=== PATIENT | female | born 1930 | race Caucasian/White ===

== ENCOUNTER 2017-10-29 20:56 | Inpatient (IN) | payer OTHER, MEDICARE ==
[2017-10-29 22:33] VITALS: BMI 23.7
[2017-10-29] MEDS ORDERED: ACETAMINOPHEN 500 MG TAB PO PRN (22:45)
[2017-10-29 23:21] LABS: Absolute Lymphocytes (CBC) 1.2 K/uL (0.7-4.9); Absolute Monocytes 0.6 K/uL (0.1-1.3); Basophils % 1.3 % (0-1.3); Eosinophils % 1.2 % (0-4.4); Hematocrit 31.5 % (36.0-45.0); Lymphocytes % 20.4 % (15.3-44.8); MCH 27.1 pg (27.0-35.0); MCV 83.9 fL (80-100); MPV 7.6 fL (7.6-11.3); Monocytes % 9.9 % (3.3-12.3); RBC Red Blood Cell Count 3.76 M/uL (3.86-4.86)
[2017-10-29 23:25] LABS: Protime INR 1.02
[2017-10-29 23:38] LABS: Potassium 3.5 mEq/L (3.6-5.0)
[2017-10-29 23:41] LABS: Albumin 3.8 g/dL (3.2-5.5); Bilirubin Total 0.8 mg/dL (0.3-1.2); Protein, Total 6.9 g/dL (6.0-8.3)
[2017-10-29] MEDS ORDERED: POTASSIUM 25 MEQ EFFERV TAB PO ONE (23:41)
[2017-10-30 00:18] LABS: Thyroid Stimulating Hormone 2.4 uIU/mL (0.34-5.60)
[2017-10-30] MEDS ORDERED: PIPER/TAZO/NS 3.375gm 0 GM/0 ML BAG ONE (01:00)
[2017-10-30] MEDS ORDERED: KCL 20 MEQ/100 mL IVPB 20 MEQ/100 ML BAG IV SCH ×2 (01:00→19:00)
[2017-10-30] MEDS: D5 0.9 NS 1,000 ML IV SCH ×2 (01:17→13:08)
[2017-10-30] MEDS: PIPER/TAZO/NS 3.375gm 3.375 GM/100 ML BAG IVPB SCH ×4 (01:18→22:12)
[2017-10-30 02:19] LABS: Urine Appearance CLEAR; Urine Bilirubin NEGATIVE (NEG); Urine Blood NEGATIVE (NEG); Urine Color YELLOW; Urine Glucose NEGATIVE (NEG); Urine Protein NEGATIVE (NEG); Urine Specific Gravity 1.015 (1.005-1.030); Urine Urobilinogen 0.2 mg/dL (0.2-1.0); Urine pH 6.5 (5.0-7.0)
[2017-10-30 02:24] LABS: Urine Microscopic Reflex NO UMIC
[2017-10-30] MEDS ORDERED: PIPER/TAZO/NS 3.375gm 6.750 GM/200 ML BAG ONE (03:01)
--- NOTE | 2017-10-30 03:04 | HP ---
Date of Admission: 10/29/2017 Chief Complaint: Leg problem. History Of Present Illness: An 87-year-old female patient, who lives at home who has caregiver at [facility]. This week, the patient's son contacted office and informed us that the patient was having some p roblem with wound on her leg and [email or web address] agency was contacted to go out to evaluate the patient's leg and to contact me as t he patient's family did not want her to go to [facility]. Home health agency has not gone out, but today the patient's daughter went to see her. The patient's son and daughter they both live out of town, so daughter was the first one who had chance to evaluate her today and she was concerne d about the way her left leg was looking, so she contacted my office. She was advised to come into t he office. After she was evaluated, she was admitted to the hospital. Daughter also reported that t he patient hurt her leg about 3 weeks ago and had a blister type of area and she is concerned about t hat this is getting infected. Denies any pain. No fever. No chills. Medications: List reviewed. Review of Systems: Cardiovascular: Has chronic leg swelling due to lymphedema. Dermatology: As mentioned above. All other systems reviewed and negative. Allergies: TO SULFA AND SOME SENSITIVITY/SIDE-EFFECT TO TRANQUILIZER, WHICH HAS OPPOSITE EFFECT. Past Medical History: Significant for pleural effusion, hyponatremia, hypokalemia, osteoporosis, hyp othyroidism, anemia, gastroesophageal reflux disease. Past Surgical History: Hip replacement, appendectomy, breast surgery, tonsillectomy. Family History: Significant for sister with lupus. Social History: Negative for smoking or alcohol use. Physical Examination: Vital Signs: Reviewed. General: Awake, alert, oriented, not in distress. HEENT: Head atraumatic, normocephalic. Conjunctivae nonerythematous. Sclerae white. Mouth, no thr ush or edema noted. Ears/Nose, no mass, lesion, discharge noted. Neck: Supple. No JVD, lymph nodes, bruit, thyromegaly noted. Lungs: Bilateral good equal air entry. Clear to auscultation. No rhonchi. No rales. Heart: Normal heart sounds, no murmur or gallop. Abdomen: Soft, bowel sounds normal. No guarding, rigidity, tenderness, mass, hepatosplenomegaly, dis tention, or bruit noted. Extremities: Bilateral grade 3 to grade 4 nonpitting pedal edema with nodular appearance of the skin on both legs consistent with chronic lymphedema problem. In the upper anterior aspect of the left l eg, she has large swelling of approximately 10 cm size. Has some bruising type of appearance on late ral 1/3 and medial 2/3 area. Has superficial excoriated skin with yellowish necrotic tissue at the b ase and this swelling is fluctuant. Surrounding skin is pink and warm. Skin: No rash, ulcer, cellulitis. Lymphatics: No lymph node enlargement in neck, supraclavicular, infraclavicular region. Neuro: No focal neurological deficit. Chest: Unremarkable. External Genitalia: Deferred. Rectal: Deferred. Laboratory Data: Pending. Impression: 1.Cellulitis/abscess, left leg. 2.Anemia. 3.Lymphedema, legs. 4.Anemia, chronic. 5.Osteoporosis. 6.Hypothyroidism. 7.Gastroesophageal reflux disease. 8.Vitamin D deficiency. Plan: Admit the patient to hospital for further evaluation and management of this problem. The festus ent is appropriate for inpatient and is expected to spend 2 midnights in hospital. We will continue home medications per order. Continue iron supplement. We will consult general surgeon. Keep her n. p.o. after midnight. The patient will need incision and drainage done and debridement of this area. Wound culture can be send at that time. Right now, there is nothing to culture as there is no activ e discharge. We will start empiric antibiotics. Details of plan of treatment discussed with the pat grecia and her daughter. Advance directive was discussed with the patient at office today. According to decision made by the patient, we will write DNR order in the chart. This was discussed in presenc e of the patient's daughter, who also agrees with the patient's decision. GERMAN/MODL Voice ID: [id number]
[2017-10-30 05:44] LABS: BUN Blood Urea Nitrogen 16 mg/dL (6-20); Bicarbonate 25 mEq/L (21-31); Glucose Level 102 mg/dL (65-120); Potassium 3.7 mEq/L (3.6-5.0); Sodium Level 137 mEq/L (135-145)
--- NOTE | 2017-10-30 07:29 | RAD REPORT ---
EXAM DESCRIPTION: RAD - Chest Single View - 10/30/2017 6:36 am CLINICAL HISTORY: Preop chest COMPARISON: March 2017 TECHNIQUE: AP portable chest image was obtained 0550 hours . FINDINGS: Lungs are fibrotic as a baseline. Pleural effusion with infiltrate and/ or atelectasis rig ht base noted. This is significantly improved over March. No new or progressive left lung field f inding. No failure or volume overload. Heart and vasculature are normal. No pneumothorax. No new bone finding identifiable. Advanced degenerative changes are present at both shoulder joints. No acute ao rtic findings suspected. IMPRESSION: Pleural effusion and right base parenchymal opacification minimal in degree and substant ially improved compared to March 2017. No failure or volume overload. Patient has a baseline mild interstitial lung disease pattern.
[2017-10-30] MEDS ORDERED: Ringers Lactate 1,000 ML IV ONE (14:55)
[2017-10-30] MEDS ORDERED: PROPOFOL 200 MG/20 ML VIAL IV ONE (15:48)
[2017-10-30] MEDS ORDERED: MEPERIDINE HCL 25 MG/0.5 ML ONE (15:48)
[2017-10-30] MEDS ORDERED: KETOROLAC 30 MG/ML INJ ONE (15:49)
[2017-10-30] MEDS ORDERED: DEXAMETHASONE 10 MG/ML VIAL ONE (15:49)
[2017-10-30] MEDS ORDERED: LIDOCAINE 2% MPF 5 ML VIAL ONE (15:49)
[2017-10-30] MEDS ORDERED: ONDANSETRON 4 MG/2 ML VIAL ONE (15:49)
[2017-10-30] MEDS ORDERED: BUPIVACAINE 0.5% PF 10 ML VIAL ONE (16:26)
[2017-10-30] MEDS ORDERED: FENTANYL CITR 100 MCG/2 ML ONE (16:50)
[2017-10-30] MEDS ORDERED: GLYCOPYRROLATE 0.2 MG/ML SYR ONE (16:55)
--- NOTE | 2017-10-30 17:18 | P.BOP ---
Preoperative diagnosis: left leg necrotic infected ulcer, bilateral chronic severe lymphedema Postoperative diagnosis: same Primary procedure: Excisional debridement subq with abscess drainage L leg ifected ulcer 5x5cm Estimated blood loss: <20cc Specimen: culture Findings: large amt of fluid, hematome, abscess Anesthesia: General Complications: None Drain(s): Other Transferred to: Recovery Room Condition: Good
--- NOTE | 2017-10-30 20:50 | CON ---
Date of Consultation: 10/30/2017 Diagnosis: Venous stasis ulcer and infected, necrotic left leg. History Of Present Illness: This is a case of an 87-year-old patient with chronic lymphedema, venous disease of left lower extremity. Recently had an abrasion over that area. Trying to heal. She had some skin abrasion and eventually developed an infection and eventually developed into a necrotic ul cer. The patient was admitted to the hospital, and surgical consult was obtained for debridement. T he patient states she has a chronic history of lymphedema, reluctant to medical treatment. Review of Systems: Constitutional: Denies any fever. Respiratory: Denies any shortness of breath. Integumentary: As above. Gastrointestinal: Denies any nausea or vomiting. Medical History: Chronic bilateral lymphedema, pleural effusion, hyponatremia, anemia, and GI reflux . Surgical History: Hip replacement, appendectomy, tonsillectomy. Social History: She does not smoke. She does not drink alcohol. Family History: Lupus. Physical Examination: General: The patient is awake and alert. HEENT: Pupils are anicteric. Neck: Supple. Chest: Clear. Abdomen: Soft and depressible. No guarding or rebound. Breast/Rectal: Apparently deferred. Extremities: Bilateral lymphedema. No Homans signs. Dorsalis pedis pulses present bilaterally. No cyanosis on the left leg region. The patient has a necrotic diabetic ulcer with infection. It is a bout 5 x 5 cm. There is fluctuance present and needs debridement. Laboratory Data: Blood work shows a WBC count of 6 with a hemoglobin of 10.2. INR is 1.02. Potassi um 3.7. Creatinine is 0.54. Assessment: This 87-year-old patient with necrotic venous stasis ulcer, left leg. Benefits and alte rnatives of excisional debridement were fully explained to the patient, which include but are not sumner ited to infection, bleeding, damage to adjacent structures, anesthesia complication, nonhealing wound , VT, and even . She also understands this may not relieve any symptoms. She might need more t stephens one surgical intervention. She was also advised the importance of following up with the [facility]. MARIA INES/SNOW Voice ID: [id number] Report ID: [id number]
--- NOTE | 2017-10-30 21:56 | PN ---
Date of Progress Note: 10/30/2017 Subjective: The patient was seen this morning for followup. She was sleeping, easily arousable. He r daughter was present in the room. No new complaints or problems reported overnight. Objective: Vital Signs: Reviewed. HEENT: Unremarkable. Lungs: Clear to auscultation. Heart: Sounds normal. Abdomen: Soft. Bowel sounds normal. No guarding, rigidity, tenderness, or distention. Extremities: Lymphedema from both legs remains unchanged. Left anterior leg swelling that was noted yesterday with abscess/infected hematoma is appearing slightly better today than yesterday. Surroun ding skin redness is also better. Impression: 1.Cellulitis/abscess, left leg. 2.Anemia. 3.Lymphedema, legs. 4.Anemia, chronic. Plan: We will go ahead and continue current antibiotics. General surgeon, Dr. Rock, was consult ed from General Surgery. Details were discussed with him. We will keep the patient n.p.o. for surgi yung debridement today and details and plan of treatment discussed with the patient and the patient's daughter at bedside. I will see her tomorrow for followup. GERMAN/MODL Voice ID: [id number] Report ID: [id number]
--- NOTE | 2017-10-31 00:40 | OP ---
Date of Procedure: 10/30/2017 Surgeon: Abram Rock MD Preoperative Diagnosis: Bilateral lymphedema with left leg necrotic venous stasis ulcer with abscess . Postoperative Diagnosis: Bilateral lymphedema with left leg necrotic venous stasis ulcer with absces s. Procedure: Excisional debridement of infected left venous stasis ulcer with drainage of an abscess. Anesthesia: General plus local. Complications: None. Findings: Hematoma with abscess and a large lymphedema with necrotic tissue present. Indications: This is the case of an 87-year-old patient with chronic lymphedema and above diagnosis fully explained to her and her health nurse [id number] the benefits, alternatives, and risks of e xcisional debridement of the necrotic ulcer, which also allows to drain the abscess with benefits, al ternatives, and risks including, but not limited to infection, bleeding, damage to adjacent structure s, anesthesia complication, nonhealing wound, MS, and even . They also understood this may not relieve any symptoms. She might need more than one surgical intervention. She understood. Signed a consent. Description Of Procedure: The patient was brought to the operating room, placed in supine position. Anesthesia was done without complication. A time-out was called. The left leg was prepped and drap ed in sterile fashion followed by sharp incision. We obtained at least 100 cc of clear fluid immedia tely once we opened that area from severe lymphedema. This followed with some purulent discharge wit h a hematoma present that was carefully cultured and removed. Necrotic tissue was removed including the fat necrotic tissue and then the area was irrigated and packed with wet-to-dry dressing after hem ostasis and local anesthetic. The patient tolerated the procedure well. The patient was sent to [facility] in stable condition. MARIA INES/SNOW Voice ID: [id number] Report ID: [id number]
[2017-10-31] MEDS: D5 0.9 NS 1,000 ML IV SCH (05:55)
[2017-10-31] MEDS: PIPER/TAZO/NS 3.375gm 3.375 GM/100 ML BAG IVPB SCH (05:55)
[2017-10-31] MEDS ORDERED: KCL 20 MEQ/100 mL IVPB 20 MEQ/100 ML BAG IV SCH (07:00)
[2017-10-31 09:07] VITALS: BP 157/98; TEMP 98.1
[2017-10-31] MEDS ORDERED: POTASSIUM 25 MEQ EFFERV TAB PO ONE (10:01)
[2017-10-31] MEDS ORDERED: POTASSIUM CL SA 10 MEQ TAB PO ONE (10:41)
[2017-10-31 12:08] VITALS: O2SAT 98
--- NOTE | 2017-10-31 22:54 | DS ---
Date of Discharge: 10/31/2017 Disposition: Discharged to go home. Physical Examination: HEENT: Unremarkable. Lungs: Clear to auscultation. Heart: Sounds normal. Abdomen: Soft. Bowel sounds normal. No guarding, rigidity, tenderness, or distention. Extremities: Bilateral leg edema which is chronic from lymphedema, but better than what it was befor e. Left leg has a wound VAC dressing present. Skin around the dressing is normal in color and tempe rature. No pain. No tenderness. Discharge Medications And Instructions: 1.Continue all prior home medications. 2.Take Augmentin 875 mg twice a day for 1 week as prescribed. Take it with food. 3.Follow up with Dr. Rock at [facility] next week on Thursday. 4.Home health nurse to provide dressing change on a daily basis, per instructions from Dr. Rock. Laboratory Data: White count upon admission was 6, hemoglobin 10.2, platelets 462. Last chemistry y ; sodium 137, potassium 3.7, chloride 108, bicarb 25. BUN 16, creatinine 0.54, glucose 102. Sodium 134, potassium 3.5, chloride 104, bicarbonate 25, BUN 18, creatinine 0.63, glucose 106. Liver function test unremarkable. Procalcitonin less than 0.05. TSH 2.40. Hospital Course: An 87-year-old female patient, who has chronic lymphedema involving both legs, came into office with infected left leg. Please see dictated H and P for more information. The patient has chronic leg swelling due to lymphedema which is nothing new and has remained unchange d lately but she actually injured her left leg about 2-3 weeks before. She came to see me at office, and after I saw her, concern was that the patient had hematoma on the left lower anterior leg and co ncern was whether that hematoma was getting infected or she had developed abscess with some celluliti s around this area. Arrangements were made for [facility] After she was admitted to the hospital, she was kept n.p.o. and yesterday, she had an incision and drainage done by Dr. Rock. I did talk to Dr. Rock about his operative finding and what it appears. The patient probably had infected hematoma with some evidence that I feel like that this could be beginning of abscess as there was some purulent material but he says when he did p erform the surgery, he noted that there was copious amount of clear watery drainage coming out of thi s wound and this was her fluid from her lymphedema that we believe was coming out and he reported lawanda roximately half a L of fluid that came out from the leg. After the surgery, wound VAC dressing was a pplied as it was present this morning. Dr. Rock has suggested for the patient to go home without wound VAC dressing. At home, she will have daily dressing changes with home health nurse and he oliverio ld like to see patient at [facility] on Thursday of next week, and at that time, he will hallie e arrangements for wound VAC dressing on an outpatient basis. Nurse to contact the patient's home he alth agency to restart her care, home physical therapy, as well as dressing changes per instructions from Dr. Rock. Final Diagnoses: 1.Cellulitis/abscess, left leg. 2.Hematoma, left leg. 3.Anemia due to iron deficiency, chronic. 4.Lymphedema, legs. 5.Osteoporosis. 6.Hypothyroidism. 7.Gastroesophageal reflux disease. 8.Vitamin D deficiency. 9.Hypokalemia. GERMAN/MODL Voice ID: [id number] Report ID: [id number]
--- NOTE | 2017-11-01 22:45 | EKG ---
Test Date: 2017-10-30 Test Time: 08:18:02 Ordnance Officer: MAISHA MEASUREMENT RESULTS: Intervals: Rate: 63 CA: 184 QRSD: 74 QT: 440 QTc: 450 Grannis: P: 81 CA: 184 QRS: 69 T: 75 INTERPRETIVE STATEMENTS: Sinus rhythm with fusion complexes Nonspecific ST abnormality Abnormal ECG Compared to ECG 04/03/2017 15:26:17 Atrial premature complex(es) now present Fusion complex(es) now present Left ventricular hypertrophy no longer present Electronically Signed On 11-01-17 22:44:48 CDT by David Montez
== END 2017-10-31 13:06 | disposition home health service (06) | DRG 572 ==
LOC: 2ND 20:56
PROVIDERS: ADMIT Internal Medicine; ATTEND Internal Medicine
PROC: 0JBP0ZZ Excision of Left Lower Leg Subcutaneous Tissue and Fascia, Open Approach (ICD-10-PCS; principal; 2017-10-30 16:15)
DX: L03.116 Cellulitis of left lower limb (principal); E03.9 Hypothyroidism, unspecified; E11.622 Type 2 diabetes mellitus with other skin ulcer; L98.499 Non-pressure chronic ulcer of skin of other sites with unspecified severity; E87.6 Hypokalemia; D50.9 Iron deficiency anemia, unspecified; I89.0 Lymphedema, not elsewhere classified; E55.9 Vitamin D deficiency, unspecified; I83.029 Varicose veins of left lower extremity with ulcer of unspecified site; K21.9 Gastro-esophageal reflux disease without esophagitis; M81.0 Age-related osteoporosis without current pathological fracture
CPT/HCPCS: 36415; 71045; 80048; 80053; 81003; 83735; 84145; 84443; 85025; 85610; 85730; 87070; 87075; 87205; 88304; 88305; 93005; 97163; J1100; J2175; J2405; J2543; J3010

== ENCOUNTER 2017-12-04 14:27 | Inpatient (IN) | payer OTHER, MEDICARE ==
--- NOTE | 2017-12-04 15:51 | RAD REPORT ---
EXAM DESCRIPTION: RAD - Chest Single View - 12/04/2017 3:38 pm CLINICAL HISTORY: Chest pain, nausea and vomiting. COMPARISON: 10/30/2017 FINDINGS: Portable technique limits examination quality. The lungs are mildly emphysematous with a small right pleural effusion noted. The heart is normal in size. No displaced fractures. IMPRESSION: COPD with small right pleural effusion.
[2017-12-04 16:24] LABS: Absolute Lymphocytes (CBC) 1.5 K/uL (0.7-4.9); Absolute Monocytes 1.1 K/uL (0.1-1.3); Absolute Neutrophil 6.8 K/uL (1.8-8.0); Basophils % 0.9 % (0-1.3); Hematocrit 32.1 % (36.0-45.0); Lymphocytes % 15.7 % (15.3-44.8); MCH 25.4 pg (27.0-35.0); MCV 78.3 fL (80-100); MPV 7.8 fL (7.6-11.3); Monocytes % 11.8 % (3.3-12.3)
[2017-12-04 16:27] LABS: Protime INR 1.03
[2017-12-04] MEDS ORDERED: FENTANYL CITR 100 MCG/2 ML ONE ×2 (16:34→19:30)
[2017-12-04 16:35] LABS: Glucose Level 107 mg/dL (65-120); Lipase 24 U/L (22-51)
[2017-12-04 16:43] LABS: ALT/SGPT 10 IU/L (10-60); AST/SGOT 26 IU/L (10-42); Albumin 3.9 g/dL (3.2-5.5); Alkaline Phosphatase 55 IU/L (42-121); BUN Blood Urea Nitrogen 15 mg/dL (6-20); Bilirubin Direct 0.2 mg/dL (0-0.2); Bilirubin Total 1.3 mg/dL (0.3-1.2); Creatine Phosphokinase 111 IU/L (22-269)
[2017-12-04 16:44] LABS: Bicarbonate 19 mEq/L (21-31); CKMB Creatine Kinase MB 1.7 ng/ml (0.3-4.0); Sodium Level 130 mEq/L (135-145)
[2017-12-04 16:47] LABS: C-Reactive Protein < 5.0 mg/L (<10.0); Potassium 2.7 mEq/L (3.6-5.0)
[2017-12-04] MEDS ORDERED: NS KCL 20MEQ 1,000 ML IV ONE (16:59)
[2017-12-04] MEDS ORDERED: ONDANSETRON 4 MG/2 ML VIAL ONE (17:16)
--- NOTE | 2017-12-04 17:19 | ER ---
Nurse's Notes [facility] Emergency Department Name: Julissa Courtney Age: 87 yrs Sex: Female : 1930 Arrival Date: 12/04/2017 Time: 14:39 Bed 8 Private MD: Diagnosis: Generalized abdominal pain;Vomiting, unspecified;Diarrhea, unspecified;Hypokalemia;Small Bowel Obstruction Presentation: 12/04 14:39 Presenting complaint: EMS states: N/V/D since this morning, one occurrence. Transition jl7 of care: patient was not received from another setting of care. Onset of symptoms was December 04, 2017. Initial Sepsis Screen: Does the patient meet any 2 criteria? No. Patient's initial sepsis screen is negative. Does the patient have a suspected source of infection? No. Patient's initial sepsis screen is negative. Care prior to arrival: Medication(s) given: zofran 4 mg, IV initiated. 20 GA, in the left antecubital area. 14:39 Method Of Arrival: EMS: [facility] jl7 14:39 Acuity: MIKE 3 jl7 Triage Assessment: 14:39 General: Appears in no apparent distress. uncomfortable, Behavior is calm, cooperative. jl7 Pain: Denies pain. Neuro: Level of Consciousness is awake, alert, obeys commands. Cardiovascular: Patient's skin is warm and dry. Respiratory: Airway is patent Respiratory effort is even, unlabored, Respiratory pattern is regular, symmetrical, Breath sounds are clear bilaterally. GI: Reports diarrhea, nausea, vomiting. Derm: Skin is yellow. Musculoskeletal: No signs and/or symptoms reported regarding the musculoskeletal system. Range of motion: intact in all extremities. Historical: - Allergies: 16:44 Sulfa (Sulfonamide Antibiotics); jl7 16:44 tranqulizer (unknown); jl7 - Home Meds: 16:44 aspirin 81 mg Oral TbEC [Active]; Fosamax 70 mg Oral tab 1 tab once wkly [Active]; Iron jl7 CR Oral [Active]; B-12 DOTS Oral [Active]; levothyroxine oral [Active]; Potassium Chloride Oral [Active]; Vitamin D3 Oral [Active]; - PMHx: 16:44 Arthritis; Hypothyroidism; Dementia; lymphedema; Thyroid problem; Ulcers; jl7 - Immunization history:: Adult Immunizations up to date. - Social history:: Smoking status: Patient/guardian denies using tobacco. Screenin:44 Abuse screen: Denies threats or abuse. Denies injuries from another. Nutritional jl7 screening: No deficits noted. Tuberculosis screening: No symptoms or risk factors identified. Fall Risk No fall in past 12 months (0 pts). Secondary diagnosis (15 points) dementia, IV access (20 points). Gait- Impaired (20 pts.). Mental Status- Overestimates/Forgets Limitations (15 pts.). Total Siddiqui Fall Scale indicates High Risk Score (45 or more points). Fall prevention measures have been instituted. Side Rails Up X 2 Placed Close to Nursing Station Frequent Obs/Assessments Occuring Family Present and informed to notify staff if the need to leave the bedside As available patient and family educated on Fall Prevention Program and Strategies. Assessment: 14:40 General: Appears in no apparent distress. uncomfortable, Behavior is anxious, restless. jl7 Pain: Complains of pain in abdomen Is continuous. Neuro: Level of Consciousness is awake, alert, obeys commands, confused, Oriented to person, place. Cardiovascular: Heart tones S1 S2 present Edema pitting to bilateral lower extremities, bilateral upper extremities, and neck. Respiratory: Airway is patent Respiratory effort is even, unlabored, Respiratory pattern is regular, symmetrical, Breath sounds are clear bilaterally. GI: Abdomen is flat, non-distended, Bowel sounds hyperactive in right upper quadrant, left upper quadrant, right lower quadrant and left lower quadrant. : No signs and/or symptoms were reported regarding the genitourinary system. EENT: No signs and/or symptoms were reported regarding the EENT system. Derm: Skin is yellow. Musculoskeletal: No signs and/or symptoms reported regarding the musculoskeletal system. 15:00 Reassessment: Pt c/o discomfort, Repositioned pt in bed. jl7 16:30 Reassessment: Pt refuses Yancey Catheter, provider notified. jl7 16:45 Reassessment: Pt laying in bed crying, states "I just want to go home. I don't want any jl7 of this. I am in so much pain. I just want to go home." Provider notified, see MAR for orders. 17:12 Reassessment: Pt c/o nausea, provider notified, see MAR for orders. jl7 17:30 Reassessment: Assisted pt to bedside commode. jl7 18:30 Reassessment: Dr. Rodgers at bedside discussing plan of care. jl7 18:50 Reassessment: Attempted to insert NG tube, pt began gagging and saying "I can't jl7 breathe, I can't breathe." NG removed. 19:00 Reassessment: Pt was one-on-one care from 1500 to 1900 with primary nurse. jl7 21:03 Reassessment: Pt unable to tolerate NG tube. Attempted NG insertion 3 times and patient tl1 refused anymore attempts. Advised provider Annelise Fournier. 21:32 Reassessment: Patient appears in no apparent distress at this time. Patient and/or tl2 family updated on plan of care and expected duration. Pain level reassessed. Pt stable and ready for transport to floor. Receiving nurse notified of NG tube refusal. Vital Signs: 14:39 BP 137 / 76; Pulse 83; Resp 16; Temp 97.7; Pulse Ox 100% ; Weight 55.79 kg; Height 5 jl7 ft. 1 in. (154.94 cm); Pain 0/10; 15:00 BP 150 / 74; Pulse 75; Resp 20; Pulse Ox 100% ; jl7 16:00 BP 130 / 71; Pulse 96; Resp 18; Pulse Ox 100% ; jl7 16:47 BP 130 / 73; Pulse 86; Resp 20 S; Temp 99.2(R); Pulse Ox 100% on R/A; jl7 17:45 BP 160 / 84; Pulse 90; Resp 20; Pulse Ox 100% ; jl7 20:27 BP 172 / 81; Pulse 71; Resp 16; Pulse Ox 92% on R/A; tl2 21:01 BP 168 / 91; Pulse 73; Resp 17; Temp 98.1; Pulse Ox 99% ; Pain 0/10; tl1 14:39 Body Mass Index 23.24 (55.79 kg, 154.94 cm) jl7 ED Course: 14:39 Patient arrived in ED. jl7 14:40 Patient has correct armband on for positive identification. Placed in gown. Bed in low jl7 position. Call light in reach. Side rails up X2. Adult w/ patient. radiation monitor on. Pulse ox on. NIBP on. Warm blanket given. 14:45 Triage completed. jl7 14:45 Irlanda, Annelise, NURSING SERVICE DIRECTOR-C [facility]. snw 14:45 Tushar Silver MD is Attending Physician. snw 15:14 Radiology exam delayed due to lab results not completed at this time. (BUN/Creatinine). sw 15:27 X-ray completed. Portable x-ray completed in exam room. Patient tolerated procedure ml well. 15:28 Chest Single View XRAY In Process Unspecified. EDMS 15:30 Maintain EMS IV. Dressing intact. Good blood return noted. Site clean \\T\\ dry. Gauge \\T\\ jl 7 site: 20 Right AC. 15:32 Radiology exam delayed due to lab results not completed at this time. (BUN/Creatinine). sw 16:00 Missed attempt(s): 22 gauge in right hand. jl7 16:10 Missed attempt(s): 22 gauge in right forearm. jl7 16:10 Initial lab(s) drawn, by me, sent to lab. jl7 16:39 Conor Nowak RN is Primary Nurse. jl7 16:49 Arm band placed on right wrist. jl7 17:00 One-on-one care X 120 minutes. jl7 17:17 Antonietta Murray MD is Hospitalizing Provider. snw 17:22 Inserted saline lock: 22 gauge in right forearm, using aseptic technique. jb1 17:35 CT Abd/Pelvis - W/Contrast In Process Unspecified. EDMS 17:37 CT completed. Patient tolerated procedure well. Patient moved back from CT. em2 18:26 Urine collected: clean catch specimen, cloudy, timbo colored. jb1 18:41 Urine Culture Sent. jl7 19:00 One-on-one care X 120 minutes. jl7 21:32 No provider procedures requiring assistance completed. Patient admitted, IV remains in tl2 place. Administered Medications: 16:40 Drug: fentaNYL (PF) 25 mcg Route: IVP; Site: left antecubital; jl7 17:00 Follow up: Response: No adverse reaction; Pain is decreased jl7 16:50 CANCELLED (other intervention used): NS 0.9% 1000 ml IV at 75 ml/hr continuous snw 17:16 Drug: Zofran 2 mg Route: IVP; Site: left antecubital; jl7 18:00 Follow up: Response: No adverse reaction; Nausea is decreased jl7 18:00 Drug: NS 0.9% with KCl 40 mEq/L 1000 ml Route: IV; Rate: 75 ml/hr; Site: right forearm; jl7 21:09 Follow up: IV Status: Infusion continued upon admission tl1 18:05 Drug: Potassium Chloride 20 mEq Route: IV; Rate: calculated rate; Site: right forearm; jl7 21:07 Follow up: IV Status: Completed infusion tl1 18:15 Drug: Flagyl 500 mg Volume: 100 ml; Route: IVPB; Rate: 200 ml/hr; Infused Over: 30 jl7 mins; Site: left antecubital; 21:07 Follow up: IV Status: Completed infusion tl1 18:15 Drug: Potassium Chloride 20 mEq Route: IV; Rate: calculated rate; Site: left jl7 antecubital; 21:06 Follow up: IV Status: Completed infusion tl1 19:43 Drug: fentaNYL (PF) 25 mcg Route: IVP; Infused Over: 2 mins; Site: left antecubital; tl1 21:07 Follow up: Response: No adverse reaction; Marked relief of symptoms; Pain is decreased tl1 20:43 Drug: Ciprofloxacin 400 mg Volume: 200 ml; Route: IVPB; Infused Over: 60 mins; Site: tl1 left antecubital; 21:09 Follow up: IV Status: Infusion continued upon admission tl1 Outcome: 17:18 Decision to Hospitalize by Provider. snw 21:32 Admitted to Med/surg accompanied by tech, family with patient, via stretcher, room 209, tl2 with chart, Report called to BRADEN Melvin 21:32 Condition: stable 21:32 Discharge instructions given to patient, family, Instructed on the need for admit. 21:37 Patient left the ED. tl2 Signatures: Dispatcher [employer] EDMS Dung Whiteside jbAnnelise Hu, NURSING SERVICE DIRECTOR-C NURSING SERVICE DIRECTOR-Farzaneh Cook Enrique em2 Irina So RN RN tl1 Rebekah Kumar Taylor, RN RN tl2 Conor Nowak RN RN jl7
--- NOTE | 2017-12-04 17:19 | EDPHYS ---
Physician Documentation [facility] Name: Julissa Courtney Age: 87 yrs Sex: Female : 1930 Arrival Date: 12/04/2017 Time: 14:39 Bed 8 Private MD: ED Physician Tushar Silver HPI: 12/04 16:19 This 87 yrs old Female presents to ER via EMS with complaints of snw Nausea/Vomiting/Diarrhea. 16:19 The patient presents to the emergency department with nausea, vomiting, diarrhea. snw Onset: The symptoms/episode began/occurred suddenly, today. Possible causes: unknown. The symptoms are aggravated by nothing. Associated signs and symptoms: Pertinent positives: abdominal pain, flatulence. Severity of symptoms: At their worst the symptoms were moderate. It is unknown whether or not the patient has had similar symptoms in the past. wound care. feels warm but pt refuses cath UA, Naye, Criticore temp measurement. Historical: - Allergies: 16:44 Sulfa (Sulfonamide Antibiotics); jl7 16:44 tranqulizer (unknown); jl7 - Home Meds: 16:44 aspirin 81 mg Oral TbEC [Active]; Fosamax 70 mg Oral tab 1 tab once wkly [Active]; Iron jl7 CR Oral [Active]; B-12 DOTS Oral [Active]; levothyroxine oral [Active]; Potassium Chloride Oral [Active]; Vitamin D3 Oral [Active]; - PMHx: 16:44 Arthritis; Hypothyroidism; Dementia; lymphedema; Thyroid problem; Ulcers; jl7 - Immunization history:: Adult Immunizations up to date. - Social history:: Smoking status: Patient/guardian denies using tobacco. ROS: 16:18 Constitutional: Negative for fever, chills, and weight loss, Eyes: Negative for injury, snw pain, redness, and discharge, ENT: Negative for injury, pain, and discharge, Neck: Negative for injury, pain, and swelling, Cardiovascular: Negative for chest pain, palpitations, and edema, Respiratory: Negative for shortness of breath, cough, wheezing, and pleuritic chest pain, Back: Negative for injury and pain, : Negative for injury, bleeding, discharge, and swelling, MS/Extremity: Negative for injury and deformity, Skin: Negative for injury, rash, and discoloration, Neuro: Negative for headache, weakness, numbness, tingling, and seizure. 16:18 Abdomen/GI: Positive for abdominal pain, nausea, vomiting, and diarrhea. Exam: 16:15 Head/Face: Normocephalic, atraumatic. Eyes: Pupils equal round and reactive to light, snw extra-ocular motions intact. Lids and lashes normal. Conjunctiva and sclera are non-icteric and not injected. Cornea within normal limits. Periorbital areas with no swelling, redness, or edema. ENT: Nares patent. No nasal discharge, no septal abnormalities noted. Tympanic membranes are normal and external auditory canals are clear. Oropharynx with no redness, swelling, or masses, exudates, or evidence of obstruction, uvula midline. Mucous membranes moist. Neck: Trachea midline, no thyromegaly or masses palpated, and no cervical lymphadenopathy. Supple, full range of motion without nuchal rigidity, or vertebral point tenderness. No Meningismus. Chest/axilla: Normal chest wall appearance and motion. Nontender with no deformity. No lesions are appreciated. Cardiovascular: Regular rate and rhythm with a normal S1 and S2. No gallops, murmurs, or rubs. Normal PMI, no JVD. No pulse deficits. Respiratory: Lungs have equal breath sounds bilaterally, clear to auscultation and percussion. No rales, rhonchi or wheezes noted. No increased work of breathing, no retractions or nasal flaring. 16:15 Back: No spinal tenderness. No costovertebral tenderness. Full range of motion. 16:15 MS/ Extremity: Pulses equal, no cyanosis. Neurovascular intact. Full, normal range of motion. 16:15 Psych: Awake, alert, with orientation to person, place and time. Behavior, mood, and affect are within normal limits. 16:15 Constitutional: The patient appears awake, uncomfortable. 16:15 Abdomen/GI: Inspection: abdomen appears normal, Bowel sounds: hyperactive, Palpation: mild abdominal tenderness, Rectal exam: rectal tone normal, Stool: brown, guaiac positive, tenderness, that is mild, the exam is chaperoned by the nurse. 16:15 Skin: Appearance: mild anasarca, lymphedema to lower extremities, left lower ext with recent bandage in place that is to be left until Thursday per Daughter and caregiver. 16:15 Neuro: Orientation: appropriate for stated age. Vital Signs: 14:39 BP 137 / 76; Pulse 83; Resp 16; Temp 97.7; Pulse Ox 100% ; Weight 55.79 kg; Height 5 jl7 ft. 1 in. (154.94 cm); Pain 0/10; 15:00 BP 150 / 74; Pulse 75; Resp 20; Pulse Ox 100% ; jl7 16:00 BP 130 / 71; Pulse 96; Resp 18; Pulse Ox 100% ; jl7 16:47 BP 130 / 73; Pulse 86; Resp 20 S; Temp 99.2(R); Pulse Ox 100% on R/A; jl7 17:45 BP 160 / 84; Pulse 90; Resp 20; Pulse Ox 100% ; jl7 20:27 BP 172 / 81; Pulse 71; Resp 16; Pulse Ox 92% on R/A; tl2 21:01 BP 168 / 91; Pulse 73; Resp 17; Temp 98.1; Pulse Ox 99% ; Pain 0/10; tl1 14:39 Body Mass Index 23.24 (55.79 kg, 154.94 cm) jl7 MDM: 14:45 Patient medically screened. snw 16:22 Data reviewed: vital signs, nurses notes. Data interpreted: Pulse oximetry: on room air snw is 100 %. Counseling: I had a detailed discussion with the patient and/or guardian regarding: the historical points, exam findings, and any diagnostic results supporting the discharge/admit diagnosis, the presence of at least one elevated blood pressure reading (>120/80) during this emergency department visit, lab results, radiology results. 17:16 Physician consultation: A Terri VELEZ was called at 17:17, was contacted at 17:17, [facility] regarding admission, to the telemetry unit. would like medications started, potassium replacement, Cipro, Flagyl. 18:13 Other consultation: Dr. Rodgers was consulted per Dr. Silver regarding pt condition and snw hospitalization. ED course: Discussed NGTand plan of care discussed with patient and her Daughter at length. 12/04 15:07 Order name: Urine Culture snw 12/04 15:07 Order name: Urine Microscopic Only; Complete Time: 19:43 snw 12/04 15:07 Order name: T\T\S; Complete Time: 17:58 snw 12/04 15:07 Order name: Basic Metabolic Panel; Complete Time: 16:49 snw 12/04 15:07 Order name: Blood Culture Adult (2) snw 12/04 15:07 Order name: BNP; Complete Time: 16:49 snw 12/04 15:07 Order name: C-Reactive Protein; Complete Time: 16:49 snw 12/04 15:07 Order name: CBC with Diff; Complete Time: 16:47 snw 12/04 15:07 Order name: Ckmb; Complete Time: 16:49 snw 12/04 15:07 Order name: CPK; Complete Time: 16:49 snw 12/04 15:07 Order name: Lactate; Complete Time: 16:49 w 12/04 15:07 Order name: LFT's; Complete Time: 16:49 w 12/04 15:07 Order name: Lipase; Complete Time: 16:49 w 12/04 15:07 Order name: Procalcitonin; Complete Time: 18:15 w 12/04 15:07 Order name: Protime (+inr); Complete Time: 16:33 snw 12/04 15:07 Order name: Ptt, Activated; Complete Time: 16:33 snw 12/04 15:07 Order name: Sed Rate; Complete Time: 16:47 w 12/04 15:07 Order name: Troponin (emerg Dept Use Only); Complete Time: 16:47 w 12/04 15:07 Order name: Chest Single View XRAY; Complete Time: 16:15 w 12/04 15:08 Order name: CT Abd/Pelvis - W/Contrast; Complete Time: 17:49 snw 12/04 15:08 Order name: Urine Culture [facility] 12/04 15:46 Order name: Occult Blood--Ancillary bd 12/04 17:57 Order name: Magnesium [facility] 12/04 18:19 Order name: Magnesium; Complete Time: 18:20 EDPA 12/04 18:25 Order name: Urine Dipstick--Ancillary (enter results) bd 12/04 18:33 Order name: Urine Dipstick-Ancillary; Complete Time: 18:36 EDPA 12/04 19:57 Order name: Lactate Sepsis 2 HR Follow-up; Complete Time: 20:09 EDPA 12/04 15:07 Order name: Cardiac monitoring; Complete Time: 16:50 snw 12/04 15:07 Order name: EKG - Nurse/Tech; Complete Time: 16:50 snw 12/04 15:07 Order name: IV Saline Lock - Large Bore; Complete Time: 16:50 snw 12/04 15:07 Order name: Labs collected and sent; Complete Time: 16:50 snw 12/04 15:07 Order name: O2 Per Protocol; Complete Time: 16:50 snw 12/04 15:07 Order name: O2 Sat Monitoring; Complete Time: 16:50 snw 12/04 15:07 Order name: Urine Dipstick-Ancillary (obtain specimen); Complete Time: 18:26 snw 12/04 17:52 Order name: Nasogastric Tube; Complete Time: 19:43 snw Administered Medications: 16:40 Drug: fentaNYL (PF) 25 mcg Route: IVP; Site: left antecubital; jl7 17:00 Follow up: Response: No adverse reaction; Pain is decreased jl7 16:50 CANCELLED (other intervention used): NS 0.9% 1000 ml IV at 75 ml/hr continuous snw 17:16 Drug: Zofran 2 mg Route: IVP; Site: left antecubital; jl7 18:00 Follow up: Response: No adverse reaction; Nausea is decreased jl7 18:00 Drug: NS 0.9% with KCl 40 mEq/L 1000 ml Route: IV; Rate: 75 ml/hr; Site: right forearm; jl7 21:09 Follow up: IV Status: Infusion continued upon admission tl1 18:05 Drug: Potassium Chloride 20 mEq Route: IV; Rate: calculated rate; Site: right forearm; jl7 21:07 Follow up: IV Status: Completed infusion tl1 18:15 Drug: Flagyl 500 mg Volume: 100 ml; Route: IVPB; Rate: 200 ml/hr; Infused Over: 30 jl7 mins; Site: left antecubital; 21:07 Follow up: IV Status: Completed infusion tl1 18:15 Drug: Potassium Chloride 20 mEq Route: IV; Rate: calculated rate; Site: left jl7 antecubital; 21:06 Follow up: IV Status: Completed infusion tl1 19:43 Drug: fentaNYL (PF) 25 mcg Route: IVP; Infused Over: 2 mins; Site: left antecubital; tl1 21:07 Follow up: Response: No adverse reaction; Marked relief of symptoms; Pain is decreased tl1 20:43 Drug: Ciprofloxacin 400 mg Volume: 200 ml; Route: IVPB; Infused Over: 60 mins; Site: tl1 left antecubital; 21:09 Follow up: IV Status: Infusion continued upon admission tl1 Disposition: 12/05 18:47 Co-signature as Attending Physician, Tushar Silver MD. Disposition: 12/04/17 17:18 Hospitalization ordered by Antonietta Murray for Inpatient Admission. Preliminary diagnosis are Generalized abdominal pain, Vomiting, unspecified, Diarrhea, unspecified, Hypokalemia, Small Bowel Obstruction. - Bed requested for Telemetry/MedSurg (Inpatient). - Status is Inpatient Admission. tl2 - Condition is Stable. - Problem is new. - Symptoms are unchanged. UTI on Admission? No Signatures: Dispatcher [employer] EDMS Kirstin Juan Shelly, CARDIOLOGY CLINICAL NURSE SPECIALIST-C CARDIOLOGY CLINICAL NURSE SPECIALIST-Csnw Irina So RN RN tl1 Lakia Bean RN RN tl2 Conor Nowak RN RN jl7 Tushar Silver MD MD Corrections: (The following items were deleted from the chart) 12/04 16:50 16:49 NS 0.9% 1000 ml IV at 75 ml/hr continuous ordered. snw w 17:43 17:18 Hospitalization Ordered by A Terri VELEZ for Inpatient Admission. Preliminary bd diagnosis is Generalized abdominal pain; Vomiting, unspecified; Diarrhea, unspecified; Hypokalemia. Bed requested for Telemetry/MedSurg (Inpatient). Status is Inpatient Admission. Condition is Stable. Problem is new. Symptoms are unchanged. UTI on Admission? No. snw 18:35 17:43 12/04/2017 17:18 Hospitalization Ordered by A Terri VELEZ for Inpatient Admission. snw Preliminary diagnosis is Generalized abdominal pain; Vomiting, unspecified; Diarrhea, unspecified; Hypokalemia. Bed requested for Telemetry/MedSurg (Inpatient). Status is Inpatient Admission. Condition is Stable. Problem is new. Symptoms are unchanged. UTI on Admission? No. bd 18:41 15:07 Yancey ordered. snkathya jl7 21:37 18:35 12/04/2017 17:18 Hospitalization Ordered by A Terri VELEZ for Inpatient Admission. tl2 Preliminary diagnosis is Generalized abdominal pain; Vomiting, unspecified; Diarrhea, unspecified; Hypokalemia; Small Bowel Obstruction. Bed requested for Telemetry/MedSurg (Inpatient). Status is Inpatient Admission. Condition is Stable. Problem is new. Symptoms are unchanged. UTI on Admission? No. snw
--- NOTE | 2017-12-04 17:45 | RAD REPORT ---
EXAM DESCRIPTION: CTAbdomen Pelvis W Contrast - 12/04/2017 5:35 pm CLINICAL HISTORY: Abdominal pain. Nausea and vomiting. COMPARISON: 09/07/2016 TECHNIQUE: Biphasic CT imaging of the abdomen and pelvis was performed with 100 ml non-ionic IV cont rast. All CT scans are performed using dose optimization technique as appropriate and may include automated exposure control or mA/KV adjustment according to patient size. FINDINGS: Small bilateral pleural effusions are present. Small moderate hiatal hernia. The liver demonstrates no focal mass or biliary dilatation. The spleen, adrenal glands and pancreas a re within normal limits. No aggressive renal lesion. Significant respiratory motion artifact is present, however, there is moderate dilatation of multiple small bowel loops in the upper abdomen. Distal small bowel appears decompressed. Prominent sigmoid d iverticulosis coli is present without diverticulitis. Free air is not identified. Mild free fluid is seen in the abdomen and pelvis. No evidence of significant lymphadenopathy. Left total hip arthroplasty noted. Old chronic fracture right pubic symphysis seen. Moderate degenera tive dextroscoliosis of the lumbar spine. IMPRESSION: Moderate mechanical small-bowel obstruction is suspected involving proximal small bowel loops. Unfortunately, detailed assessment is quite limited due to significant motion artifact.
[2017-12-04] MEDS ORDERED: POTASSIUM PHOS IV SCH ×4 (18:00)
[2017-12-04] MEDS ORDERED: POTASSIUM CL 40 MEQ in NA CHLORIDE 0.9% 1,000 ML IV SCH (18:00)
[2017-12-04] MEDS ORDERED: NA CHLORIDE 0.9% IV SCH ×4 (18:00)
[2017-12-04] MEDS ORDERED: KCL 20 MEQ/100 mL IVPB 20 MEQ/100 ML BAG IV ONE ×2 (18:11→18:19)
[2017-12-04] MEDS ORDERED: METRONIDAZOLE 500mg IVPB 500 MG/100 ML BAG IV ONE (18:19)
[2017-12-04] MEDS ORDERED: CIPROFLOXACIN 400mg IV 400 MG/200 ML BAG IV ONE (18:19)
[2017-12-04 18:33] LABS: Urine Blood TRACE (NEG); Urine Glucose NEGATIVE (NEG); Urine Protein NEGATIVE (NEG); Urine Specific Gravity 1.015 (1.005-1.030); Urine pH 8.5 (5.0-7.0)
[2017-12-04 19:41] LABS: Urine Bacteria <20 /HPF (<20); Urine Culture Reflex Order NOT NEEDED; Urine RBC <5 /HPF (NONE SEEN)
[2017-12-04] MEDS ORDERED: LIDOCAINE VISCOUS 2% SOLN 15 ML UDC ONE (19:41)
[2017-12-04] MEDS ORDERED: NS KCL 40MEQ 40 MEQ/1,000 ML BAG IV SCH (20:18)
[2017-12-04] MEDS ORDERED: ONDANSETRON 4 MG/2 ML VIAL IV PRN (20:18)
[2017-12-04] MEDS ORDERED: ACETAMINOPHEN 500 MG TAB PO PRN (20:18)
[2017-12-04] MEDS ORDERED: MORPHINE 4 MG/ML SYR IV PRN (20:18)
[2017-12-04] MEDS: CIPROFLOXACIN 400mg IV 400 MG/200 ML BAG IV SCH (21:00)
[2017-12-05] MEDS: METRONIDAZOLE 500mg IVPB 500 MG/100 ML BAG IV SCH ×3 (00:12→18:01)
[2017-12-05] MEDS ORDERED: MORPHINE 4 MG/ML SYR IV PRN (03:27)
[2017-12-05] MEDS: ONDANSETRON 4 MG/2 ML VIAL IV PRN ×4 (03:33→18:01)
[2017-12-05 05:24] LABS: Absolute Lymphocytes (CBC) 0.8 K/uL (0.7-4.9); Absolute Monocytes 0.9 K/uL (0.1-1.3); Basophils % 0.4 % (0-1.3); Hematocrit 26.3 % (36.0-45.0); Lymphocytes % 11.4 % (15.3-44.8); MCH 26.2 pg (27.0-35.0); MCV 78.3 fL (80-100); MPV 7.8 fL (7.6-11.3); Monocytes % 13.1 % (3.3-12.3); RBC Red Blood Cell Count 3.36 M/uL (3.86-4.86)
[2017-12-05 06:08] LABS: ALT/SGPT 11 IU/L (10-60); AST/SGOT 23 IU/L (10-42); Albumin 3.1 g/dL (3.2-5.5); Alkaline Phosphatase 45 IU/L (42-121); BUN Blood Urea Nitrogen 12 mg/dL (6-20); Bicarbonate 22 mEq/L (21-31); Bilirubin Direct 0.2 mg/dL (0-0.2); Bilirubin Total 1.5 mg/dL (0.3-1.2); Glucose Level 112 mg/dL (65-120); Lipase 23 U/L (22-51); Potassium 3.9 mEq/L (3.6-5.0); Protein, Total 5.5 g/dL (6.0-8.3); Sodium Level 132 mEq/L (135-145)
[2017-12-05] MEDS: Morphine 2 MG/2 ML SYR IV PRN ×3 (08:33→18:02)
[2017-12-05] MEDS: CIPROFLOXACIN 400mg IV 400 MG/200 ML BAG IV SCH ×2 (08:33→20:43)
[2017-12-05] MEDS: NS KCL 40MEQ 40 MEQ/1,000 ML BAG IV SCH (10:38)
[2017-12-05] MEDS: FAMOTIDINE 20 MG/2 ML VIAL IV SCH ×2 (10:39→20:43)
--- NOTE | 2017-12-05 14:01 | HP ---
Date of Admission: 12/05/2017 DICTATION ENDS HERE GERMAN/MODL Voice ID: [id number] MTDD
--- NOTE | 2017-12-05 15:03 | P.CNS ---
Date of Consult: 12/05/17 PC: This 87-year-old female presents emergency room with abdominal pain, nausea and vomiting. HPC: Patient is been throwing up at home for the last few hr. Also has had some abdominal pain. When seen last night in the ER seems somewhat confused. PSHx: NAD SOC: Allergic to sulfa, and tranquilizers SYS REVIEW: States he has otherwise been in good health. Her weight has been steady. She lives independently. No cough, wheeze, shortness of breath. States she has a good appetite and moderate exercise tolerance. O/E awake alert has a lot of nausea at the moment HEENT: Not jaundice Chest: Chest movement equal bilaterally ABD: There is not distended, it is soft nontender no masses are palpable LOCO: Intact. Has bilateral lymphedema. DATA: CT scan shows sound optimal viewing of the abdomen with the possibility of a small bowel obstruction being entertained. Also hypokalemic, and anemic. IMPRESSION: Patient as nausea vomiting, suspicious for possible small bowel obstruction. Not having typical pain associated with vascular compromise. PLAN: Continue to resuscitate patient at this time. Tomorrow if there is no improvement, would recommend repeating the CT scan with oral contrast. I have discussed this plan of campaign with the patient's daughter. She understands and wants to proceed.
--- NOTE | 2017-12-05 17:00 | RAD REPORT ---
EXAM DESCRIPTION: RAD - Abdomen 1 View (KUB) - 12/05/2017 4:46 pm CLINICAL HISTORY: Small bowel obstruction COMPARISON: CT study December 04 FINDINGS: Small bowel loops are prominent in the upper abdomen fractionally improved from the prior day CT study. Air is present within a nondilated stomach. No large bowel dilatation. No free air or p neumatosis. Advanced bony degenerative changes are present. Old fracture changes in the pubic symphys is noted. No suspicious calcifications. IMPRESSION: Prominent proximal small bowel loops showing some mild improvement from prior day imagin g. No free air, pneumatosis or other progressive process.
[2017-12-05] MEDS: ENOXAPARIN 40 MG/0.4 ML SQ SCH (18:02)
[2017-12-06] MEDS: METRONIDAZOLE 500mg IVPB 500 MG/100 ML BAG IV SCH ×3 (00:21→16:45)
[2017-12-06] MEDS: NS KCL 40MEQ 40 MEQ/1,000 ML BAG IV SCH ×2 (00:22→16:45)
[2017-12-06 04:53] LABS: Absolute Lymphocytes (CBC) 0.9 K/uL (0.7-4.9); Absolute Monocytes 1.1 K/uL (0.1-1.3); Absolute Neutrophil 4.9 K/uL (1.8-8.0); Basophils % 0.4 % (0-1.3); Eosinophils % 0.4 % (0-4.4); Hematocrit 26.3 % (36.0-45.0); Lymphocytes % 13.2 % (15.3-44.8); MCH 25.6 pg (27.0-35.0); MCV 80.1 fL (80-100); MPV 7.9 fL (7.6-11.3); Monocytes % 15.6 % (3.3-12.3); RBC Red Blood Cell Count 3.29 M/uL (3.86-4.86)
[2017-12-06 05:15] LABS: BUN Blood Urea Nitrogen 11 mg/dL (6-20); Bicarbonate 21 mEq/L (21-31); Glucose Level 98 mg/dL (65-120); Magnesium 1.7 mg/dL (1.8-2.5); Potassium 3.9 mEq/L (3.6-5.0); Sodium Level 132 mEq/L (135-145)
[2017-12-06] MEDS ORDERED: MAGNESIUM SULFATE 1 gm IVPB 1 GM/100 ML BAG IV ONE (05:30)
[2017-12-06] MEDS ORDERED: KCL 20 MEQ/100 mL IVPB 20 MEQ/100 ML BAG IV SCH (06:00)
[2017-12-06 08:06] LABS: Blood Morphology Comment NOT SEEN (NOT SEEN); Platelet Estimate ADEQ
[2017-12-06] MEDS: FAMOTIDINE 20 MG/2 ML VIAL IV SCH ×2 (09:34→20:53)
[2017-12-06] MEDS: CIPROFLOXACIN 400mg IV 400 MG/200 ML BAG IV SCH ×2 (09:34→20:28)
--- NOTE | 2017-12-06 11:14 | RAD REPORT ---
EXAM DESCRIPTION: RAD - Abdomen 1 View (KUB) - 12/06/2017 10:23 am CLINICAL HISTORY: Abdominal pain FINDINGS: A mildly dilated loop of small bowel is present within the central lower abdomen. No addit ional air filled dilated loops of small bowel are seen. No abnormal mass is seen. IMPRESSION: Improvement in the small bowel obstruction
--- NOTE | 2017-12-06 12:44 | PN ---
Date of Progress Note: 12/06/2017 Subjective: The patient was seen this morning for followup. No new complaints, problems reported by patient. Her son was present at bedside. She did have some nausea, vomiting during day yesterday. Last episode was around 6 p.m. yesterday but after that she started to feel lot better this morning. She denies any abdominal pain. No nausea. No vomiting. Looks better. Feels better overall. No bowel movement yet. Objective: Vital Signs: Reviewed. HEENT: Examination unremarkable. Lungs: Clear to auscultation. No rhonchi. No rales. Heart: Heart sounds normal. Abdomen: Soft, bowel sounds normal. No guarding, rigidity, tenderness, or distention. Extremities: Bilateral leg edema unchanged. Laboratory Data: White count 6.9, hemoglobin 8.4, platelets 382. Sodium 132, potassium 3.9, chlorid e 106, bicarb 21, BUN 11, creatinine 0.58, glucose 98, magnesium 1.7. Impression: 1.Small bowel obstruction. 2.Hypokalemia. 3.Hypomagnesemia. 4.Anemia. 5.Lymphedema. 6.Hypothyroidism. Plan: We will go ahead and continue to replace electrolytes per protocol. Continue current antibiot ics. We will repeat abdominal x-ray today. Depending on x-ray results and if okay with Dr. Rodgers, we will consider to start her on clear liquid diet. Her bowel sounds are normal. Today, she has no abdominal distention or tenderness. Overall, she looks better. Feels better. I am hoping that abd ominal x-ray will be looking better today compared to yesterday. Details were discussed with the patient and her son at bedside. Continue Lovenox for DVT prophylaxis. GERMAN/MODL Voice ID: [id number] Report ID: [id number]
[2017-12-06] MEDS: ENOXAPARIN 40 MG/0.4 ML SQ SCH (16:45)
[2017-12-07] MEDS: METRONIDAZOLE 500mg IVPB 500 MG/100 ML BAG IV SCH ×3 (02:18→17:13)
[2017-12-07] MEDS: NS KCL 40MEQ 40 MEQ/1,000 ML BAG IV SCH (05:32)
[2017-12-07 05:46] LABS: BUN Blood Urea Nitrogen 10 mg/dL (6-20); Bicarbonate 20 mEq/L (21-31); Glucose Level 90 mg/dL (65-120); Magnesium 1.8 mg/dL (1.8-2.5); Potassium 3.9 mEq/L (3.6-5.0); Sodium Level 129 mEq/L (135-145)
[2017-12-07] MEDS: LEVOTHYROXINE SOD 0.1 MG TAB PO SCH (07:00)
[2017-12-07] MEDS: ONDANSETRON 4 MG/2 ML VIAL IV PRN ×3 (08:04→17:14)
[2017-12-07] MEDS: CIPROFLOXACIN 400mg IV 400 MG/200 ML BAG IV SCH ×2 (08:05→20:26)
[2017-12-07] MEDS ORDERED: SPIRONOLACTONE 25 MG TABLET PO SCH (09:00)
[2017-12-07] MEDS: FAMOTIDINE 20 MG/2 ML VIAL IV SCH ×2 (09:00→20:27)
--- NOTE | 2017-12-07 09:00 | HP ---
Date of Admission: 12/05/2017 Chief Complaint: Nausea, vomiting, abdominal pain. History Of Present Illness: This 87-year-old female patient, who lives at home , came into emergency room with sudden onset of abdominal pain, nausea, vomiting that started yesterday. After the patient was evaluated in the ER, she was noted to have very low potassium and CAT scan of the abdomen was reported as small bowel obstruction changes. The patient was admitted to the hospital. IV fluid antibiotics were started and NG tube was ordered to be placed. But this morning, the patient's daughter tells me that they try to put it 4 times and they were not successful as the tube would come out of the mouth every time they were trying put it. The patient has vomited 3 times since her admission to the hospital. She was having abdominal pain before my arrival and received a dose of morphine at that time, so she was somewhat comfortable when I saw her and little sleepy as well. Allergies: ALLERGY TO SULFA AND SOME SENSITIVITIES/SIDE EFFECT TO TRANQUILIZER , WHICH HAS OPPOSITE EFFECT. Medications: List reviewed. Review of Systems: Cardiovascular: Has chronic leg swelling due to lymphedema. Dermatology: Has left leg wound which is healing well. [facility] and [facility] her [facility]. GI: As mentioned above. All other systems reviewed and negative. Past Medical History: Significant for pleural effusion, hyponatremia, hypokalemia, osteoporosis, lymphedema of legs, hypothyroidism, anemia, gastroesophageal reflux disease. Past Surgical History: Hip replacement, appendectomy, breast surgery, tonsillectomy. Family History: Significant for sister with lupus. Social History: Negative for smoking or alcohol use. Advanced Directive: Do not resuscitate as per my discussion with patient's daughter and I confirmed this decision. The patient's nurse was present in room during this discussion. Physical Examination: Vital Signs: Last vital signs this morning, height 5 feet 1 inch. Weight 125 pounds. Temperature 98.4, pulse 80, respiratory rate 18, blood pressure 151/ 67. General: Awake, alert, oriented, not in distress. HEENT: Head atraumatic, normocephalic. Conjunctivae nonerythematous. Sclerae white. Mouth, no thrush or edema noted. Ears/Nose, no mass, lesion, discharge noted. Neck: Supple. No JVD, lymph nodes, bruit, thyromegaly noted. Lungs: Bilateral good equal air entry. Clear to auscultation. No rhonchi. No rales. Heart: Normal heart sounds, no murmur or gallop. Abdomen: Soft, not distended. No guarding, rigidity, no tenderness. Bowel sounds hypoactive. Extremities: Bilateral chronic lymphedema overall better than what it used to be. Skin: No rash, ulcer, cellulitis. Lymphatics: No lymph node enlargement in neck, supraclavicular, infraclavicular region. Neuro: No focal neurological deficit. Chest: Unremarkable. External Genitalia: Deferred. Rectal: Deferred. Laboratory Data: Yesterday white count 9.6, hemoglobin 10.4, platelets 541. This morning, white count 6.7, hemoglobin 8.8, platelets 412. Yesterday sodium 130, potassium 2.7, chloride 98, bicarb 19, BUN 15, creatinine 0.67, glucose 107. Total bilirubin 1.3. Liver function tests unremarkable. BNP 376, procalcitonin less than 0.05. Troponin less than 0.03. Lactic acid 19, magnesium 1.9. This morning, sodium 132, potassium 3.9, chloride 104, bicarb 22 , BUN 12, creatinine 0.60, glucose 112. Liver function test unremarkable. Lipase 22. Urinalysis negative. CAT scan of abdomen with contrast, moderate mechanical small bowel obstruction. Chest x-ray, COPD changes with small right pleural effusion. Impression: 1. Small bowel obstruction. 2. Hypokalemia. 3. Lymphedema, legs. 4. Anemia, chronic. 5. Osteoporosis. 6. Gastroesophageal reflux disease. 7. Hypothyroidism. 8. Pleural effusion. 9. Chronic obstructive pulmonary disease. Plan: Admit the patient to hospital for further evaluation and management of this problem. The patient is appropriate for inpatient and is expected to spend 2 midnights in hospital. We will go ahead and keep her n.p.o. We were not able to place an NG tube because of technical problem. We do not have any sole tier available until Thursday, so there is nobody thoracic surgeon to assist to place NG tube endoscopically. We will continue IV fluid, IV antibiotics. General surgeon, Dr. Rodgers, who is on-call has been consulted. I have discussed details with him. We will repeat abdominal x-ray today, monitor electrolytes, replace it as it becomes necessary. DVT prophylaxis will be given using Lovenox. DNR order will be written per my discussion with the patient's daughter and I will see her tomorrow for followup. GERMAN/SNOW Voice ID: [id number]
--- NOTE | 2017-12-07 11:43 | RAD REPORT ---
EXAM DESCRIPTION: RAD - Abdomen Single View - 12/07/2017 11:34 am CLINICAL HISTORY: Nausea, history of SBO COMPARISON: 12/06/2017, 12/05/2017 FINDINGS: A generalized paucity of bowel gas seen. No bowel obstruction pattern is identified. No pn eumoperitoneum. Moderate lumbar degenerative scoliosis. IMPRESSION: A bowel obstruction pattern is not detected.
[2017-12-07] MEDS: Morphine 2 MG/2 ML SYR IV PRN ×2 (12:21→18:31)
--- NOTE | 2017-12-07 15:30 | P.PN ---
Date of Service: 12/07/17 S.: Patient been doing very well yesterday evening. Was not tolerating a full liquid diet. Appear to be in no distress. However today she is markedly uncomfortable and back to her nausea and retching again today. O. abdomen is essentially soft, flat, no guarding or rebound. No mass masses are palpable. Patient however is dry heaving. Apparently an abdominal film today shows some improvement since initial presentation A: Patient does not seem to make a progress at the current time. She still has this nausea and vomiting. The CT scan was not point specific on whether or not there was an obstruction present. Nor has an obvious source of vomiting been ruled out such as gastritis, peptic ulcer disease. P: Patient may continue on clear liquids, I believe the patient wants to have his console with GI, but no not see the order. A repeat CT scan in the a.m. may be an initial help if she is not improved by tomorrow.
[2017-12-07] MEDS: ENOXAPARIN 40 MG/0.4 ML SQ SCH (17:14)
[2017-12-08] MEDS: METRONIDAZOLE 500mg IVPB 500 MG/100 ML BAG IV SCH ×3 (00:34→17:00)
--- NOTE | 2017-12-08 02:41 | PN ---
Date of Progress Note: 12/07/2017 Subjective: Patient was seen this morning for followup. No new complaints or problems reported by t he patient. Lying in bed, not in distress. No more nausea, vomiting after I saw her yesterday. No bowel movement, no abdominal pain. Objective: Vital Signs: Reviewed. The patient's son was at bedside. HEENT: Examination unremarkable. Lungs: Clear to auscultation. No rhonchi or rales. Heart: Heart sounds normal. Abdomen: Soft, bowel sounds normal. No guarding, rigidity, tenderness, or distention. Extremities: The bilateral lymphedema of both lower extremities. Laboratory Data: Sodium 129, potassium 3.9, chloride 103, bicarb 20, BUN 10, creatinine 0.57, glucos e 90, magnesium 1.8. Abdominal x-ray done this afternoon shows bowel obstruction pattern not detecte d. Impression: 1.Small bowel obstruction, resolved. 2.Anemia, chronic. 3.Hypokalemia. 4.Lymphedema, legs. Plan: We will go ahead and continue current medications. The patient diet was advanced to soft diet at lunch time but before she could have soft diet, she had episode of vomiting so we did put her audrey k on clear liquid diet. I will re-evaluate her tomorrow. Physical therapy to help ambulate the festus ent and we will continue current antibiotics. I will see her tomorrow for followup. GERMAN/MODL Voice ID: [id number] Report ID: [id number]
[2017-12-08 04:56] LABS: Absolute Lymphocytes (CBC) 0.8 K/uL (0.7-4.9); Absolute Neutrophil 5.6 K/uL (1.8-8.0); Basophils % 0.6 % (0-1.3); Eosinophils % 2.1 % (0-4.4); Hematocrit 27.2 % (36.0-45.0); Lymphocytes % 10.8 % (15.3-44.8); MCH 26.6 pg (27.0-35.0); MPV 7.8 fL (7.6-11.3); Monocytes % 13.5 % (3.3-12.3); RBC Red Blood Cell Count 3.44 M/uL (3.86-4.86)
[2017-12-08 05:13] LABS: Potassium 3.8 mEq/L (3.6-5.0)
[2017-12-08 05:22] LABS: Magnesium 1.9 mg/dL (1.8-2.5)
[2017-12-08] MEDS: LEVOTHYROXINE SOD 0.1 MG TAB PO SCH (06:30)
[2017-12-08] MEDS: D5 0.9 NS 1,000 ML IV SCH ×2 (07:00→20:20)
[2017-12-08] MEDS ORDERED: KCL 20 MEQ/100 mL IVPB 20 MEQ/100 ML BAG IV SCH (07:00)
[2017-12-08] MEDS ORDERED: Morphine 2 MG/2 ML SYR ONE (07:43)
[2017-12-08] MEDS: PROMETHAZINE 25 MG/ML VIAL IV PRN (08:09)
--- NOTE | 2017-12-08 08:50 | RAD REPORT ---
EXAM DESCRIPTION: RAD - Abdomen 1 View (KUB) - 12/08/2017 7:40 am CLINICAL HISTORY: Pain COMPARISON: 12/06/2017 FINDINGS: The bowel gas pattern is non-obstructive. No evidence of free air or pneumatosis. Moderate stool is present in the colon. Moderate degenerative dextroscoliosis of the lumbar spine. Left total hip arthroplasty seen. IMPRESSION: Moderate stool in the colon.
--- NOTE | 2017-12-08 08:51 | RAD REPORT ---
EXAM DESCRIPTION: RAD - Chest Single View - 12/08/2017 7:42 am CLINICAL HISTORY: Cough, nausea and vomiting. COMPARISON: 12/04/2017 FINDINGS: Portable technique limits examination quality. Emphysematous changes are present with reduced lung volumes. Trace right pleural fluid. The heart is upper limit normal in size. No displaced fractures.Degenerative changes are present both shoulders.
--- NOTE | 2017-12-08 10:18 | RAD REPORT ---
EXAM DESCRIPTION: US - Abdomen Exam Complete - 12/08/2017 9:54 am CLINICAL HISTORY: Abdominal pain, nausea, vomiting COMPARISON: None. FINDINGS: Gallbladder is distended with sludge identified within the lumen. Patient was not tender t o transducer pressure over the right upper quadrant. No gallstones identified. No wall thickening see n. Small amount of ascites is present. Common bile duct is normal with no common duct stone identifie d. No focal liver lesion identified. Liver and spleen are normal in size. The pancreas is grossly no rmal but partially obscured. Patient has a prominent fluid-filled bowel pattern limiting detail. No hydronephrosis or suspicious mass in either kidney. No aortic aneurysm. No bulky lymphadenopathy. Small bilateral pleural effusions are present only part ially imaged. IMPRESSION: Distended gallbladder with sludge. No wall thickening or biliary tree dilatation. Small amount of ascites seen as well as small bilateral pleural effusions. Pancreas is grossly normal but partially obscured by bowel.
[2017-12-08] MEDS: PANTOPRAZOLE 40 MG INJ IVP SCH (10:25)
[2017-12-08] MEDS: CIPROFLOXACIN 400mg IV 400 MG/200 ML BAG IV SCH ×2 (10:25→20:51)
--- NOTE | 2017-12-08 14:24 | P.CNS ---
Date of Consult: 12/08/17 Requesting Physician: Glenn Murray Chief Complaint: Venous stasis ulcer History of Present Illness: 87 y/o with admitted for SBO and found to have venous stasis ulcer. I was consulted for wound care since pt has been seen at [facility] in a regular basis. Allergies Sulfa (Sulfonamide Antibiotics) Allergy (Verified 12/05/17 00:55) Hives/Rash Parmesan Allergy (Uncoded 12/05/17 00:55) Shortness of breath tranqulizer (unk Allergy (Uncoded 12/05/17 00:55) Unknown tranqulizer (unknown Allergy (Uncoded 12/05/17 00:55) Unknown Home medications list reviewed: Yes Home Medications: Levothyroxine [Synthroid*] 100 mcg PO [id number] 02/28/16 Alendronate Sodium [Fosamax] 70 mg PO EVERY 7TH DAY 04/04/17 Aspirin [Aspir-Low] 81 mg PO DAILY 04/04/17 Calcium Phosphate Trib/Vit D3 [Caltrate Gummy Bites] 2 tab PO BID 04/04/17 Hayder Plex 85 mg PO DAILY 10/29/17 Amox/Clavulanate [Augmentin 875-125 Tab] 1 each PO BID #14 tab 10/31/17 Famotidine [Pepcid AC] 1 tab PO DAILY 11/10/17 Spironolactone [Aldactone*] 1 tab PO DAILY 11/10/17 - Past Medical/Surgical History Diabetic: No -: Lymphedema -: Hypothyroidism -: Osteoporosis -: GERD -: Dementia -: Anemia -: Left hip replacement -: Appendectomy -: Breast I&D 1952 -: tonsilectomy Psychosocial/ Personal History: Patient lives at home. She has a home help person. - Family History Sister Medical History: Other (see notes) Notes: lupus, Father Medical History: Cancer Notes: prostate - Social History Smoking Status: Never smoker Alcohol use: Yes CD- Drugs: No Caffeine use: Yes Place of Residence: Home Review of Systems General: Weakness, Malaise Gastrointestinal: No Distention Musculoskeletal: As per HPI Integumentary: As per HPI Physical Examination Temp Pulse Resp BP Pulse Ox 98.6 F 58 18 169/80 H 97 12/08/17 12:00 12/08/17 12:00 12/08/17 12:00 12/08/17 12:00 12/08/17 12:00 General: Alert, In no apparent distress Gastrointestinal: Soft and benign, No rebound, No guarding Integumentary: No erythema, No cyanosis, Venous stasis ulcer (chronic severe lymphedema) Conclusions/Impression: leg elevation compression therapy limited by pt discomfort PRizma to left leg weekly leg elevation
[2017-12-08] MEDS: ENOXAPARIN 40 MG/0.4 ML SQ SCH (18:29)
--- NOTE | 2017-12-08 23:22 | PN ---
Date of Progress Note: 12/08/2017 Subjective: Patient was seen this morning for followup. No new complaints, problems reported by the patient except multiple episodes of nausea, vomiting, and some abdominal pain reported by patient's daughter. The patient had 6 or 7 episodes of nausea, vomiting that started yesterday late morning an d she has not had a bowel movement so far. Objective: Vital Signs: Reviewed. HEENT: Unremarkable. Lungs: Clear to auscultation. Heart: Heart sounds normal. Abdomen: Soft, bowel sounds normal. No guarding, rigidity. No tenderness. Extremities: Bilateral leg lymphedema. Laboratory Data: White count 7.7, hemoglobin 9.1, platelets 389. Sodium 128, potassium 3.8, chlorid e 100, bicarb 22, BUN 15, creatinine 0.65, glucose 98, magnesium 1.9. Chest x-ray done today does not show any infiltrate. Abdominal x-ray done today shows presence of mo derate amount of stool in the colon, no evidence of bowel obstruction and abdominal ultrasound was do ne today shows distended gallbladder, but no evidence of gallbladder wall thickening or pericholecyst ic fluid. Impression: 1.Small bowel obstruction, resolved. 2.Abdominal pain. 3.Nausea and vomiting. 4.Anemia. 5.Lymphedema, legs. 6.Hyponatremia. Plan: This morning when I saw her, decision was made to consult eating disorder specialist and request was m joshua for Dr. Her to evaluate the patient from GI point of view. We will continue current antibio tic, IV fluid per order. Discontinue famotidine. Start patient on IV Protonix. As of this evening, nursing staff has informed me that they were not able to re-establish IV access and they have tried multiple times, so PICC line was ordered. I will see her tomorrow for followup. GERMAN/MODL Voice ID: [id number] Report ID: [id number]
[2017-12-09] MEDS: METRONIDAZOLE 500mg IVPB 500 MG/100 ML BAG IV SCH ×3 (00:56→16:13)
[2017-12-09 05:08] LABS: Absolute Neutrophil 5.5 K/uL (1.8-8.0); Basophils % 0.9 % (0-1.3); Eosinophils % 5.4 % (0-4.4); Lymphocytes % 12.4 % (15.3-44.8); MCH 26.2 pg (27.0-35.0); MCV 78.4 fL (80-100); MPV 7.7 fL (7.6-11.3); Monocytes % 12.3 % (3.3-12.3); RBC Red Blood Cell Count 3.44 M/uL (3.86-4.86)
[2017-12-09 05:32] LABS: Bicarbonate 22 mEq/L (21-31); Potassium 3.4 mEq/L (3.6-5.0); Sodium Level 128 mEq/L (135-145)
[2017-12-09 05:34] LABS: BUN Blood Urea Nitrogen 14 mg/dL (6-20); Glucose Level 81 mg/dL (65-120); Magnesium 1.9 mg/dL (1.8-2.5)
[2017-12-09] MEDS: LEVOTHYROXINE SOD 0.1 MG TAB PO SCH (06:30)
[2017-12-09] MEDS: PROMETHAZINE 25 MG/ML VIAL IV PRN ×2 (06:47→10:51)
--- NOTE | 2017-12-09 08:20 | RAD REPORT ---
EXAM DESCRIPTION: RAD - Chest Single View - 12/09/2017 5:16 am CLINICAL HISTORY: PICC line placement. COMPARISON: None. FINDINGS: Portable chest was obtained following placement of a right upper extremity PICC line. The catheter tip is in the SVC.
[2017-12-09] MEDS: D5 0.9 NS 1,000 ML IV SCH ×2 (09:40→22:50)
[2017-12-09] MEDS: CIPROFLOXACIN 400mg IV 400 MG/200 ML BAG IV SCH ×2 (10:51→20:12)
[2017-12-09] MEDS: KCL 20 MEQ/100 mL IVPB 20 MEQ/100 ML BAG IV SCH ×3 (10:51→14:41)
[2017-12-09] MEDS: PANTOPRAZOLE 40 MG INJ IVP SCH (10:52)
[2017-12-09] MEDS ORDERED: NA CHLORIDE 0.9% 250 ML ONE (11:07)
[2017-12-09] MEDS: Morphine 2 MG/2 ML SYR IV PRN (14:42)
[2017-12-09] MEDS: ENOXAPARIN 40 MG/0.4 ML SQ SCH (18:13)
--- NOTE | 2017-12-09 23:51 | PN ---
Date of Progress Note: 12/09/2017 Subjective: The patient was seen this morning for followup. No new complaints or problems reported by the patient, but continues to have nausea. No vomiting since I saw her yesterday. Her daughter w as present with her at bedside, reported that the patient slept almost all day yesterday and last nig ht. She lost her IV access yesterday, so PICC line was placed last night. She was seen in [facility] by Dr. Rock from General Surgery and Dr. Tai from GI service. Physical Examination: Vital Signs: Reviewed. HEENT: Examination unremarkable. Lungs: Clear to auscultation. Heart: Sounds normal. Abdomen: Soft, bowel sounds normal. No guarding, rigidity, tenderness, or distention. Extremities: Lymphedema present, but better than before. Laboratory Data: White count 7.9, hemoglobin 9, platelets 456, sodium 128, potassium 3.4, chloride 9 7, bicarb 22, BUN 14, creatinine 0.45, glucose 81, and magnesium 1.9. Impression: 1.Nausea with vomiting. 2.Hyponatremia. 3.Hypokalemia. 4.Lymphedema. 5.Open wound, left leg. 6.Anemia. 7.Urinary tract infection. We will go ahead and continue current antibiotics. IV fluid. Continue to follow with gastroenterolo abbey and Dr. Rock. We will have to consider starting her on TPN since she is really not eating, drinking wall on a temporary basis at least for nutritional support. Replace electrolytes per protocol, and I will see her tomorrow for followup. Ultrasound and x-ray fi ndings were discussed with family. GERMAN/MODL Voice ID: [id number] Report ID: [id number]
[2017-12-10] MEDS: METRONIDAZOLE 500mg IVPB 500 MG/100 ML BAG IV SCH ×3 (00:03→17:33)
[2017-12-10] MEDS ORDERED: KCL 20 MEQ/100 mL IVPB 20 MEQ/100 ML BAG IV SCH ×2 (01:00→18:00)
[2017-12-10] MEDS: ONDANSETRON 4 MG/2 ML VIAL IV PRN (03:46)
[2017-12-10] MEDS: LEVOTHYROXINE SOD 0.1 MG TAB PO SCH (05:22)
[2017-12-10] MEDS ORDERED: Ringers Lactate 1,000 ML IV ONE ×2 (07:43→18:57)
[2017-12-10] MEDS ORDERED: PROPOFOL 200 MG/20 ML VIAL IV ONE (08:48)
[2017-12-10] MEDS ORDERED: EPHEDRINE SULF 50 MG/ML SYR ONE (08:48)
[2017-12-10] MEDS: CIPROFLOXACIN 400mg IV 400 MG/200 ML BAG IV SCH (09:00)
[2017-12-10] MEDS: PANTOPRAZOLE 40 MG INJ IVP SCH (09:00)
[2017-12-10] MEDS: Levofloxacin 750mg IV 750 MG/150 ML BAG IV SCH (11:00)
[2017-12-10] MEDS: D5 0.9 NS 1,000 ML IV SCH ×2 (12:20→23:26)
--- NOTE | 2017-12-10 12:59 | RAD REPORT ---
EXAM DESCRIPTION: CT - Abdomen Pelvis Wo Contrast - 12/10/2017 12:22 pm CLINICAL HISTORY: Abdominal pain COMPARISON: December 04, 2017 TECHNIQUE: Computed axial tomography of the abdomen and pelvis was obtained. IV was not requested. O ral contrast was given. All CT scans are performed using dose optimization technique as appropriate and may include automated exposure control or mA/KV adjustment according to patient size. FINDINGS: The evaluation of solid organs and vessels is limited secondary to the lack of contrast a dministration. Small to moderate right and small left pleural effusions with bibasilar atelectasis are seen The liver, spleen, pancreas, adrenals and kidneys appear grossly normal. A Yancey catheter is present within the bladder . Subacute moderately displaced right pubic bone fract ure is noted. A nasogastric tube has its tip in the distal stomach abutting the anterior wall . Contrast is present within the proximal jejunum. The proximal jejunum is moderately dilated. The dist al jejunum and ileum are decompressed. A small hiatal hernia is present. Contrast within the esophagu s indicates reflux A small amount of ascites is present within the abdomen and pelvis. A small pericardial effusion is seen. Diffuse edema is present within the subcutaneous tissues IMPRESSION: Moderate dilatation of proximal jejunum with decompression of distal jejunum and ileum m ost likely indicating a mechanical obstruction Small to moderate right and small left pleural effusions Small amount of ascites Small pericardial effusion Anasarca
[2017-12-10 13:41] LABS: BUN Blood Urea Nitrogen 11 mg/dL (6-20); Bicarbonate 24 mEq/L (21-31); Glucose Level 103 mg/dL (65-120); Potassium 3.7 mEq/L (3.6-5.0); Sodium Level 127 mEq/L (135-145)
[2017-12-10] MEDS: AA 5%/D20W/ELECTROLYTES-TPN 2,000 ML, Lipids 20% 250 ML with MULTIVITAMINS INJ 10 ML IV SCH ×9 (14:03→23:52)
[2017-12-10] MEDS: ENOXAPARIN 40 MG/0.4 ML SQ SCH (17:33)
--- NOTE | 2017-12-10 19:01 | P.PN ---
Date of Service: 12/10/17 S: Patient feels much better this evening. Had an EGD and placement of a nasogastric tube has had about 4 L out since then. O: Abdomen is soft, minimal tenderness. Patient is awake alert and oriented. A: This patient underwent an EGD today without tissue the keep. O she did have some esophagitis there was no evidence of any obstruction or pyloric outlet obstruction seen. Prior to doing the procedure he was able to get approximately 2 L of the patient's stomach. In addition to that a nasogastric tube was also placed after the EGD. It has been draining a large amount of fluid. After discussion with him a CT scan with oral contrast was ordered. It has come back showing a mechanical obstruction. I have discussed with Dr. kowalski in he concurs that we she go to the operating room to relieve this obstruction. P: I have discussed this information with the patient and her family. They understand the risks of the procedure. The possibility of bleeding, infection, need for further surgeries and procedures were outlined. The fact that she is debilitated had and the possible bad outcome the ProTack surgery were explained. They understand and want clinically. She will be in the ICU, most likely intubated after surgery.
--- NOTE | 2017-12-10 19:19 | OP ---
Surgeon: Heron Her MD Performing Physician: Heron Her M.D. Procedure Performed: Esophagogastroduodenoscopy with NG tube placement. Indication For Procedure: Failure to pass an NG tube through the nasal route while the patient is aw jerman, decompress the bowels due to possible bowel obstruction. Please refer to Dr. Tai consultation for full details. Plan For Anesthesia: Monitored anesthesia care. Complexity: High due to possible bowel obstruction which can significantly increase risk of aspirati on. Technique: After obtaining informed consent from the healthcare proxy and explaining risks and compl ications which include, but are not limited to bleeding, infection, perforation, and anesthesia compl ication, the patient was placed in the left lateral position and sedation was given. From then subse quently, an NG tube was passed from the right nasal cavity without difficulty. As soon as it entered the distal esophagus apparently significant amount of back flow was noted of dark bilious liquid. T his was immediately connected to a suction and a total of 1.5 L of fluid was drained. At that time, I did inform the patient's son about the findings and also that she was a high risk for aspiration. Subsequently after normal fluid was being drained, the scope was inserted into the mouth and carefull y guided up till the second portion of the duodenum. After the completion of examination, the scope and equipment were withdrawn and procedure terminated in a safe manner. Findings: Esophagus: In the distal esophagus, early grade D esophagitis was seen. Also seen was a large hiatal hernia in the distal esophagus. However, this was not the source. However, there was n o evidence of obstruction at the hiatus. Stomach: Another 500 cc of bilious fluid was aspirated with suction. There did not appear to be any significant pathology other than the hiatal hernia in the stomach. The pylorus and antrum were not obstructed. Duodenum: The bulb and second portion appeared normal. Complications: None. Tolerance To Anesthesia: Excellent. Postoperative Diagnosis: Large volume gastric retention, likely due to small bowel obstruction, soni re esophagitis likely due to the stasis, large hiatal hernia. After the completion of examination, N G tube was replaced and position confirmed with the scope that it had gone beyond the hiatus into the antrum. Plan: We will keep the patient n.p.o., NG tube to intermittent suction, IV PPI. We will defer furth er management to Dr. Rock and Dr. Murray. Had discussed with them both in detail. Dr. Rock wa nts to repeat a CAT scan which has been requested. US/MODL Voice ID: [id number] Report ID: [id number]
[2017-12-10] MEDS ORDERED: MIDAZOLAM HCL 2 MG/2 ML INJ ONE (19:46)
[2017-12-10] MEDS ORDERED: ROCURONIUM 50 MG/5 ML VIAL IV ONE (19:46)
[2017-12-10] MEDS ORDERED: FENTANYL CITR 100 MCG/2 ML ONE ×2 (19:46→21:52)
[2017-12-10] MEDS ORDERED: ONDANSETRON HCL 40 MG/20 ML VIAL ONE (19:47)
[2017-12-10] MEDS ORDERED: ETOMIDATE 20 MG/10 ML VIAL IV ONE (19:48)
[2017-12-10] MEDS ORDERED: METOCLOPRAMIDE 10 MG/2mL INJ ONE (19:48)
[2017-12-10] MEDS ORDERED: BUPIVACAINE 0.25% PF 10 ML VIAL ONE (20:02)
--- NOTE | 2017-12-10 21:19 | P.OP ---
Preoperative diagnosis: Small-bowel obstruction Postoperative diagnosis: The same Primary procedure: Exploratory laparotomy Secondary procedure: Division of obstructing bands Anesthesia: General Estimated blood loss: Less than 10 cc Findings: Distal small bowel obstruction Operative Technique: The patient brought the operating room and placed supine on the table. After the induction of adequate general endotracheal anesthesia, the area of the abdomen was prepped with a DuraPrep solution, and she was draped in usual aseptic manner. A generous midline incision was made. This brought down through the skin and subcutaneous tissue. The fascia in the midline was opened. The peritoneum was grasped between hemostats and sharply incised. Having gained access to the peritoneal cavity, a finger was placed are under our incision was opened for the full length of our wound. With a Villalta a retractors placed on the left side of the abdomen I was able to palpate the bowel. We found that there was area just at the ileocecal valve that had a band that was extremely dense across that that was obstructing the small bowel. There was also another portion there was also acting like an internal hernia in the same area. These bands were divided x2. The intestines and did not show any evidence of any vascular compromise however the lumen was markedly reduced. The intestines were now run from the ligament of Treitz all the way down to the ileocecal valve. The right transverse and descending colon were also palpated. The patient has extensive diverticular disease but no other intra-abdominal pathology was noted. At this point the wound was inspected 1 more time for adequate hemostasis. The fascia was closed in the midline with a running suture of all looped nylon. Glady were then applied to the skin. At the end of the procedure she was stable when sent to the ICU. She remains intubated with a nasogastric tube in a Yancey catheter. No drains were placed. The midline dressing was applied. Complications: None Drain(s): Nasogastric, Urinary catheter Transferred to: ICU Condition: Good
[2017-12-10] MEDS ORDERED: PROPOFOL 1,000 MG/100 ML VIAL IV ONE (21:21)
[2017-12-10] MEDS ORDERED: NA CHLORIDE 0.9% 250 ML IV PRN (21:49)
[2017-12-10] MEDS ORDERED: MIDAZOLAM HCL 2 MG/2 ML INJ IV PRN (21:49)
[2017-12-10] MEDS ORDERED: PROPOFOL 1,000 MG/100 ML VIAL IV PRN (21:49)
[2017-12-10] MEDS ORDERED: HALOPERIDOL LACT 5 MG/ML INJ IV PRN (21:49)
[2017-12-10] MEDS ORDERED: NA CHLORIDE 0.9% 1,000 ML ONE (23:10)
[2017-12-11] MEDS: PANTOPRAZOLE 40 MG INJ IVP SCH ×3 (00:02→20:36)
--- NOTE | 2017-12-11 00:40 | PN ---
Date of Progress Note: 12/10/2017 Subjective: The patient was seen this morning for followup. No new complaints, problems reported by her except her ongoing nausea, vomiting problem. When I saw her, this was before her EGD procedure and her son was with her at bedside. Objective: Vital Signs: Reviewed. HEENT: Examination unremarkable. Lungs: Clear to auscultation. Heart: Sounds normal. Abdomen: Soft. Bowel sounds present. No guarding, rigidity, distention. Extremities: Bilateral leg lymphedema better than before. Laboratory Data: Sodium 127, potassium 3.7, chloride 98, bicarb 24, BUN 11, creatinine 0.46, glucose 103. CAT scan of the abdomen done today, results reviewed. EGD findings, results reviewed. Impression: 1.Small bowel obstruction. 2.Hyponatremia. 3.Hypokalemia. 4.Anemia. Plan: After I saw her, the patient had EGD done, and Dr. Her called and informed me about EGD f inding. The patient had significant amount of biliary secretion at least 4712-5775 cc that was remov ed during EGD. Has a large hiatal hernia. Prior to EGD, she vomited approximately 500 cc of similar type of liquid. Dr. Her was concerned about bowel obstruction, so after he called me, he also discussed findings with Dr. Rodgers and Dr. Rodgers ordered another CAT scan of abdomen, which also s howed complete bowel obstruction, so the patient will be undergoing surgery for it as of this evening , as per my discussion with Dr. Rodgers for this complete bowel obstruction since she has not improve d over a period of last 5-6 days of this hospitalization. TPN was ordered for nutritional support this morning, and we will continue current antibiotics. GERMAN/MODL Voice ID: [id number] Report ID: [id number]
[2017-12-11] MEDS: Morphine 2 MG/2 ML SYR IV PRN ×3 (00:45→09:34)
[2017-12-11] MEDS: D5 0.9 NS 1,000 ML IV SCH ×2 (01:40→15:00)
[2017-12-11] MEDS: METRONIDAZOLE 500mg IVPB 500 MG/100 ML BAG IV SCH ×3 (01:54→17:23)
[2017-12-11] MEDS: FENTANYL CITR 100 MCG/2 ML IV PRN ×4 (03:51→20:36)
[2017-12-11 05:18] LABS: Absolute Lymphocytes (CBC) 0.8 K/uL (0.7-4.9); Absolute Monocytes 1.1 K/uL (0.1-1.3); Absolute Neutrophil 4.7 K/uL (1.8-8.0); Basophils % 0.3 % (0-1.3); Eosinophils % 2.5 % (0-4.4); Hematocrit 22.3 % (36.0-45.0); Lymphocytes % 11.7 % (15.3-44.8); MCH 25.5 pg (27.0-35.0); MCV 78.4 fL (80-100); MPV 7.1 fL (7.6-11.3); Monocytes % 16.3 % (3.3-12.3); RBC Red Blood Cell Count 2.84 M/uL (3.86-4.86)
[2017-12-11 05:35] LABS: BUN Blood Urea Nitrogen 15 mg/dL (6-20); Bicarbonate 24 mEq/L (21-31); Glucose Level 134 mg/dL (65-120); Magnesium 1.6 mg/dL (1.8-2.5); Phosphorus 2.6 mg/dL (2.5-4.3); Potassium 3.3 mEq/L (3.6-5.0); Sodium Level 130 mEq/L (135-145)
[2017-12-11] MEDS: LEVOTHYROXINE SOD 0.1 MG TAB PO SCH (06:23)
[2017-12-11] MEDS ORDERED: MAGNESIUM SULFATE 1 gm IVPB 1 GM/100 ML BAG IV ONE (07:04)
--- NOTE | 2017-12-11 07:46 | RAD REPORT ---
EXAM DESCRIPTION: RAD - Chest Single View - 12/10/2017 10:19 pm CLINICAL HISTORY: Intubation, respiratory distress. A preliminary report was provided at the time of the study. COMPARISON: Portable chest December 09 TECHNIQUE: AP portable chest image was obtained 2158 hours . FINDINGS: Endotracheal tube tip is in the trachea with the tip at the level of the top of the aortic arch. This is well above the simón. Right upper extremity PICC line remains in place. Heart and vasculature are normal. Bilateral pleural effusions with infiltrate and/ or atelectasis in each base. No acute bone finding. No acute aortic findings suspected. IMPRESSION: ET tube in good position well above the simón. PICC line remains in good position. Bilateral pleural effusions with infiltrate and/ or atelectasis.
[2017-12-11] MEDS ORDERED: KCL 20 MEQ/100 mL IVPB 20 MEQ/100 ML BAG IV SCH ×3 (08:00→21:00)
--- NOTE | 2017-12-11 09:38 | P.CNS ---
Date of Consult: 12/11/17 Reason for Consult: Patient on a ventilator Chief Complaint: Patient on a ventilator status post laparoscopy History of Present Illness: Patient is 87 years of age admitted to admitted with mechanical bowel obstruction she had the release of adhesions by a laparoscopy currently on a ventilator requiring pain medications hemodynamically stable little anemic be transfused some blood on propofol Allergies Sulfa (Sulfonamide Antibiotics) Allergy (Verified 12/05/17 00:55) Hives/Rash Parmesan Allergy (Uncoded 12/05/17 00:55) Shortness of breath tranqulizer (unk Allergy (Uncoded 12/05/17 00:55) Unknown tranqulizer (unknown Allergy (Uncoded 12/05/17 00:55) Unknown Home Medications: Levothyroxine [Synthroid*] 100 mcg PO [id number] 02/28/16 Alendronate Sodium [Fosamax] 70 mg PO EVERY 7TH DAY 04/04/17 Aspirin [Aspir-Low] 81 mg PO DAILY 04/04/17 Calcium Phosphate Trib/Vit D3 [Caltrate Gummy Bites] 2 tab PO BID 04/04/17 Hayder Plex 85 mg PO DAILY 10/29/17 Amox/Clavulanate [Augmentin 875-125 Tab] 1 each PO BID #14 tab 10/31/17 Famotidine [Pepcid AC] 1 tab PO DAILY 11/10/17 Spironolactone [Aldactone*] 1 tab PO DAILY 11/10/17 - Past Medical/Surgical History Diabetic: No -: Lymphedema -: Hypothyroidism -: Osteoporosis -: GERD -: Dementia -: Anemia -: Left hip replacement -: Appendectomy -: Breast I&D 1952 -: tonsilectomy Psychosocial/ Personal History: Patient lives at home. She has a home help person. - Family History Sister Medical History: Other (see notes) Notes: lupus, Father Medical History: Cancer Notes: prostate - Social History Smoking Status: Never smoker Alcohol use: Yes CD- Drugs: No Caffeine use: Yes Place of Residence: Home Review of Systems is unable to be obtained Physical Examination Temp Pulse Resp BP Pulse Ox 97.8 F 67 12 119/73 97 12/11/17 08:00 12/11/17 09:00 12/11/17 09:00 12/11/17 09:00 12/11/17 09:00 General: Unresponsive HEENT: Atraumatic Neck: Supple Respiratory: Clear to auscultation bilaterally Cardiovascular: No edema, Regular rate/rhythm Gastrointestinal: Hypoactive, Tenderness (Generalized tenderness) Musculoskeletal: No clubbing, No swelling, Other (Patient has lower extremity lymphedema) - Problems (1) Postoperative respiratory failure Current Visit: Yes Status: Acute Plan: Patient is 87 years of age admitted after lysis of adhesions she is hemodynamically stable plan to be in off the propofol lever on a ventilator for another day plan to wean and extubate tomorrow he will be transfused 2 units patient is currently on a PPN labs reviewed electrolyte imbalance chest x-ray clear she is on 40% oxygen with 98% sat Klebsiella isolated in the urine patient is on levofloxacin and Flagyl Klebsiella as pansensitive in the urine plan to change to a narrow spectrum antibiotics tomorrow
[2017-12-11] MEDS: SODIUM CHLORIDE 0.9% 10ML INJ IV PRN ×2 (09:56→20:37)
--- NOTE | 2017-12-11 11:05 | P.PN ---
Date of Service: 12/11/17 S: Patient is resting comfortably on the ventilator. Vital signs are stable. Pain appears to be controlled. O: Adequate urine output. Minimal out nasogastric tube. Hemoglobin came back load today in. Being transfused 2 units of blood. A: Surgically stable, will most likely be extubated tomorrow at a.m.. P: Continue current therapy
[2017-12-11] MEDS: Levofloxacin 750mg IV 750 MG/150 ML BAG IV SCH (11:10)
[2017-12-11] MEDS: LORazepam 2 MG/ML VIAL IV PRN ×2 (12:49→15:15)
--- NOTE | 2017-12-11 13:26 | PN ---
Date of Progress Note: 12/11/2017 Subjective: The patient was seen this morning for followup. She had surgery done for small bowel ob struction by Dr. Rodgers. After surgery the patient was admitted to ICU on ventilator and getting IV pain medication, which is morphine and fentanyl and she is requiring both of these. She is having s ignificant amount of pain as reported by ICU nursing staff and with this combination of propofol, fen tanyl and morphine when I saw her this morning, she was comfortable. Intake and output records revthu. Vital signs reviewed. She was on 40% FiO2 and was on assist-control overnight but this morning, respiratory therapies around 6:30 had changed when setting to SIMV. Objective: HEENT: Unremarkable. Lungs: Clear to auscultation. Heart: Sounds normal. Abdomen: Soft. Bowel sounds absent. No distention. Extremity: Lymphedema of both legs unchanged from yesterday. Laboratory Data: White count 6.7, hemoglobin 7.3, platelets 352. Yesterday's hemoglobin was 9. Sod ium 130, potassium 3.3, chloride 103, bicarb 24, BUN 15, creatinine 0.61, glucose 134, magnesium 1.6. Impression: 1.Small bowel obstruction, status post exploratory laparotomy. 2.Anemia due to acute blood loss. 3.Hypokalemia. 4.Hypomagnesemia. 5.Lymphedema. 6.Hyponatremia. Plan: We will go ahead and continue current TPN. The patient is on TPN for nutritional support as o f yesterday. We will continue that continue current antibiotics Lovenox for DVT prophylaxis. Dr. Jesus giron from Pulmonary to manage the patient's ventilator status and we will continue to follow with g eneral surgeon, Dr. Rodgers. Replace electrolytes per protocol. We will see her tomorrow for follow up. Continue current pain medications. I did discuss with the ICU nurse to time her pain medication as fentanyl and morphine both are ordered every 4 hours but to time it in a way that she gets 1 or other medication every 2 hours for pain cont rol. GERMAN/MODL Voice ID: [id number] Report ID: [id number]
--- NOTE | 2017-12-11 14:10 | CON ---
Date of Consultation: 12/07/2017 Identification: An 87-year-old female. Reason For Consultation: Nausea, vomiting, unable to put NG tube, and weight loss. History Of Present Illness: Ms. Courtney is an 87-year-old female, who has history of dementia. She is a very poor historian herself; fortunately, her daughter is available. According to the daughter, s he has been gradually losing weight and has been unable to eat due to nausea, vomiting. She also com plains of intermittent abdominal pain. However, because the patient is demented, real history is eder d to obtain. At this time, she denies any abdominal pain, however, repeated history of abdominal pipo n has been also documented in the past. As far as I can see no history of hematemesis, melena, or he matochezia. She [facility] also [facility] for most likely what appears to be lymphedgaston ma. Past Medical History: Hypertension, degenerative joint disease, electrolyte problem, and gastroesoph ageal reflux disease. Past Surgical History: Unknown to me at this time. Family History: Denies any gastrointestinal malignancy in the family. Social History: No alcohol or tobacco. Psych History: History of dementia. Allergies: REVIEWED IN THE CHART. Medications: Reviewed in the chart. Review of Systems: Due to the patient's condition herself and since she does not give any detailed history is impossible to obtain. However, according to the family, whatever limited, there is no history of shortness of breath, cough, or expectoration. She is gradually losing weight, however, exact amount is unknown. Her mental status is also going down over the ears slowly. Her memory has been compromised. Other t stephens above nothing else is known. Physical Examination: General: Elderly female, thin build, no other acute distress noted at this time. Hemodynamic respir atory profile within normal range. She answers some simple questions, sometimes with relevance, some times with no relevance; however, does not open her eyes. Does not make any eye contact. HEENT: Atraumatic, normocephalic. Bitemporal wasting. Facial wasting. Pupillary reflexes could no t be examined since she does not cooperate. Neck: Muscles are wasted; however, trachea is central in position. No thyromegaly. No lymphadenopa thy. CHEST: Poor air exchange bilaterally; however, this is more due to the effort than anything else. HEART: S1, S2 is regular. Abdomen: Soft, but the patient complains of tenderness more in the form of resistance and she pushes my hand out. I am unable to palpate any hepatomegaly, splenomegaly. Bowel sounds are present. No rebound tenderness. Ascites, succussion splash cannot be tested due to lack of cooperation. Extremities: Upper extremities are normal, symmetrical, although some wasting of the muscles bilater ally. Lower extremity, nonpitting edema. Dermatologic: Decreased skin turgor throughout upper part and multiple bruises in upper extremity and the lower extremities. Severe venous stasis noted. Musculoskeletal: Joint prominence noted in all the exposed area. Dermatologic, as elaborated above. Diagnostic Data: Reviewed and analyzed. She is also anemic, hemoglobin in the range of 10. Platele t count is normal. CT scan consistent with obstruction. Impression, Plan, And Recommendation: Ms. 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 In addition to that, right now she appears to have small bowel obstruction. Conservative treat ment and empiric antibiotic treatment for last couple of days have not improved her. However, NG tub e trial could not be given because of lack of NG tube insertion. Given above situation, I will order small bowel follow-through to see whether we can see a proper area of obstruction. However, if this could not be done due to her nausea, vomiting, EGD-guided NG tube will be placed. I have discussed with the patient's daughter regarding the indications, contraindications, possible c omplications, and alternatives of all of the above including, but not limited to the possibility of b leeding, perforation, tear, infection, sepsis, need for surgery, need for blood transfusion, and anes thesia related problem including rare fatalities. She expresses good understanding. They are willin g to take the risk. if eventually she does not improve and bowel obstruction continues to be persist ent, surgical intervention will be needed. Overall, we are dealing with a patient, who has significa nt comorbidities. In next couple of days if oral food is not tolerated, she will also need TPN. I have discussed the case with Dr. Her and Dr. Murray and we agree on the treatment process. BENIGNO/SNOW Voice ID: [id number] Report ID: [id number]
[2017-12-11] MEDS: ENOXAPARIN 40 MG/0.4 ML SQ SCH (17:23)
[2017-12-11] MEDS: AA 5%/D20W/ELECTROLYTES-TPN 2,000 ML, Lipids 20% 250 ML with MULTIVITAMINS INJ 10 ML IV SCH ×3 (18:33)
[2017-12-11 21:12] LABS: Hematocrit 29.6 % (36.0-45.0)
[2017-12-12] MEDS: METRONIDAZOLE 500mg IVPB 500 MG/100 ML BAG IV SCH ×3 (01:18→17:56)
[2017-12-12] MEDS: FENTANYL CITR 100 MCG/2 ML IV PRN ×3 (02:39→20:09)
[2017-12-12] MEDS: LORazepam 2 MG/ML VIAL IV PRN ×2 (03:25→07:48)
[2017-12-12] MEDS: D5 0.9 NS 1,000 ML IV SCH ×2 (04:20→17:40)
[2017-12-12 05:42] LABS: Arterial Blood Carboxyhemoglob 1.6 % (0-1.5); Blood Gas Oxyhemoglobin 96.7 % (94-97); Blood O2 Saturation 98.9 % (92-98.5)
[2017-12-12 05:43] LABS: BUN Blood Urea Nitrogen 25 mg/dL (6-20); Bicarbonate 22 mEq/L (21-31); Glucose Level 122 mg/dL (65-120); Magnesium 1.8 mg/dL (1.8-2.5); Sodium Level 127 mEq/L (135-145)
[2017-12-12] MEDS: LEVOTHYROXINE SOD 0.1 MG TAB PO SCH (05:51)
[2017-12-12] MEDS: Morphine 2 MG/2 ML SYR IV PRN (06:00)
[2017-12-12] MEDS ORDERED: MAGNESIUM SULFATE 1 gm IVPB 1 GM/100 ML BAG IV ONE (08:00)
[2017-12-12] MEDS: PANTOPRAZOLE 40 MG INJ IVP SCH ×2 (08:07→20:10)
--- NOTE | 2017-12-12 09:34 | P.PN ---
Subjective Date of Service: 12/12/17 Chief Complaint: Patient on a ventilator status post laparoscopy Subjective: Improving (condition stable.) Review of Systems is unable to be obtained Physical Examination - Vital Signs Temperature: 97.6 F Blood Pressure: 115/67 Pulse: 92 Respirations: 16 Pulse Ox (%): 99 - Physical Exam General: Unresponsive Neck: Supple Respiratory: Clear to auscultation bilaterally, Diminished Cardiovascular: Edema Assessment & Plan - Problems (Diagnosis) (1) Postoperative respiratory failure Current Visit: Yes Status: Acute Plan: Hemodynamically stable. Transfused yesterday. Labs reviewed. CXRY clear. plean to wean and extubate .change to reocepin Mild hyponatremia
--- NOTE | 2017-12-12 10:20 | RAD REPORT ---
EXAM DESCRIPTION: RAD - Chest Single View - 12/12/2017 8:40 am CLINICAL HISTORY: Respiratory failure. COMPARISON: 12/10/2017 FINDINGS: Portable technique limits examination quality. Tip of the ET tube is above the simón. Right-sided PICC line has tip in SVC. Enteric tube descends i n the stomach. The lungs are grossly clear. The heart is mildly prominent.
[2017-12-12] MEDS: CEFTRIAXONE/SWI 1gm 1 GM/10 ML SYR IV SCH (11:34)
--- NOTE | 2017-12-12 15:24 | PN ---
Date of Progress Note: 12/12/2017 Subjective: The patient was seen today. She remains on ventilator. The pain is well controlled with current pain medication and propofol drip. Intake and output records reviewed. Objective: Vital signs: Reviewed. HEENT: Unremarkable. Lungs: Clear to auscultation. No rhonchi or rales. Heart: Heart sounds normal. Abdomen: Soft. Bowel sounds hypoactive. Extremities: lymphedema of legs unchanged. Laboratory Data: Hemoglobin 10.2 after 2 units of packed red cell blood transfusion. Sodium 127, potassium 4, chloride 101, bicarb 22, BUN 25, creatinine 0.45, glucose 122, and magnesium 1.8. Impression: 1. Small bowel obstruction, status post surgery. 2. Acute blood loss anemia. 3. Lymphedema, legs. 4. Urinary tract infection. Plan: We will continue current medications. Continue to follow with Dr. rBay from Pulmonary. Continue current antibiotics. Ventilator management per Dr. Bray. Chest x-ray from this morning reviewed. We will continue Lovenox for DVT prophylaxis. GERMAN/MODL Voice ID: [id number] Report ID: [id number] MTDD
[2017-12-12] MEDS: AA 5%/D20W/ELECTROLYTES-TPN 2,000 ML, Lipids 20% 250 ML with MULTIVITAMINS INJ 10 ML IV SCH ×3 (17:56)
[2017-12-12] MEDS: ENOXAPARIN 40 MG/0.4 ML SQ SCH (17:57)
[2017-12-12] MEDS: SODIUM CHLORIDE 0.9% 10ML INJ IV PRN (20:10)
[2017-12-13] MEDS: METRONIDAZOLE 500mg IVPB 500 MG/100 ML BAG IV SCH ×3 (00:06→17:40)
[2017-12-13] MEDS: FENTANYL CITR 100 MCG/2 ML IV PRN ×4 (00:16→23:17)
[2017-12-13 05:40] LABS: Absolute Lymphocytes (CBC) 0.8 K/uL (0.7-4.9); Absolute Monocytes 1.4 K/uL (0.1-1.3); Absolute Neutrophil 5.3 K/uL (1.8-8.0); Basophils % 0.3 % (0-1.3); Eosinophils % 2.7 % (0-4.4); Hematocrit 28.7 % (36.0-45.0); Lymphocytes % 10.6 % (15.3-44.8); MCH 26.7 pg (27.0-35.0); MCV 80.5 fL (80-100); Monocytes % 17.9 % (3.3-12.3); RBC Red Blood Cell Count 3.57 M/uL (3.86-4.86)
[2017-12-13] MEDS: LEVOTHYROXINE SOD 0.1 MG TAB PO SCH (05:52)
[2017-12-13 05:54] LABS: BUN Blood Urea Nitrogen 27 mg/dL (6-20); Bicarbonate 22 mEq/L (21-31); Glucose Level 106 mg/dL (65-120); Magnesium 1.9 mg/dL (1.8-2.5); Phosphorus 3.4 mg/dL (2.5-4.3); Sodium Level 128 mEq/L (135-145)
[2017-12-13 06:39] LABS: Blood Morphology Comment NOT SEEN (NOT SEEN); Platelet Estimate ADEQ; Platelets, Giant FEW
[2017-12-13] MEDS: D5 0.9 NS 1,000 ML IV SCH ×2 (06:44→20:20)
[2017-12-13] MEDS: PANTOPRAZOLE 40 MG INJ IVP SCH ×2 (08:31→20:03)
[2017-12-13] MEDS: CEFTRIAXONE/SWI 1gm 1 GM/10 ML SYR IV SCH (08:31)
[2017-12-13] MEDS: SODIUM CHLORIDE 0.9% 10ML INJ IV PRN ×2 (08:32→20:03)
[2017-12-13] MEDS ORDERED: CEFTRIAXONE 1 GM/NS 50 ML 1 GM/50 ML BAG IV SCH (09:00)
--- NOTE | 2017-12-13 11:04 | PN ---
Date of Progress Note: 12/13/2017 Subjective: The patient was seen this morning for followup. She was in ICU, lying in bed, not in di stress. Intending adequate oxygenation. Intake and output records reviewed. Tolerating TPN leonardo ral very well and her pain is well controlled. Not in any respiratory distress. The patient was ext ubated yesterday by Dr. Bray and after extubation, she has done well. No bowel movement yet. Objective: Vital Signs: Reviewed. HEENT: Unremarkable. Lungs: Clear to auscultation. Heart: Sounds normal. Abdomen: Soft. Surgical dressing present. No guarding, rigidity, tenderness. Bowel sounds hypoact sweta. Extremities: Lymphedema unchanged from before. Laboratory Data: White count 7.8, hemoglobin 9.5, platelets 432. Sodium 128, potassium 4, chloride 102, bicarb 22, BUN 27, creatinine 0.50, glucose 106, magnesium 1.9, phosphorus 3.4. Impression: 1.Small bowel obstruction, status post surgery. 2.Urinary tract infection. 3.Hyponatremia. 4.Anemia. Plan: We will go ahead and continue TPN, continue other current antibiotics, oxygen. We will consid er to transfer her out of ICU to regular room either today or tomorrow. The patient's condition is stable at this point. GERMAN/MODL Voice ID: [id number] Report ID: [id number]
[2017-12-13] MEDS ORDERED: MINERAL OIL 30 ML UCUP PO ONE (11:55)
[2017-12-13] MEDS: AA 5%/D20W/ELECTROLYTES-TPN 2,000 ML, Lipids 20% 250 ML with MULTIVITAMINS INJ 10 ML IV SCH ×3 (17:40)
[2017-12-13] MEDS: ENOXAPARIN 40 MG/0.4 ML SQ SCH (17:41)
[2017-12-14] MEDS: METRONIDAZOLE 500mg IVPB 500 MG/100 ML BAG IV SCH ×4 (00:10→23:38)
[2017-12-14] MEDS: Morphine 2 MG/2 ML SYR IV PRN (02:11)
[2017-12-14] MEDS: FENTANYL CITR 100 MCG/2 ML IV PRN (03:25)
[2017-12-14] MEDS: LEVOTHYROXINE SOD 0.1 MG TAB PO SCH (05:09)
[2017-12-14 05:31] LABS: BUN Blood Urea Nitrogen 21 mg/dL (6-20); Bicarbonate 23 mEq/L (21-31); Glucose Level 117 mg/dL (65-120); Magnesium 1.8 mg/dL (1.8-2.5); Phosphorus 2.9 mg/dL (2.5-4.3); Potassium 3.9 mEq/L (3.6-5.0); Sodium Level 126 mEq/L (135-145)
[2017-12-14 06:12] VITALS: BMI 26.2
[2017-12-14] MEDS ORDERED: KCL 20 MEQ/100 mL IVPB 20 MEQ/100 ML BAG IV SCH (07:00)
[2017-12-14] MEDS ORDERED: MAGNESIUM SULFATE 1 gm IVPB 1 GM/100 ML BAG IV ONE (07:00)
[2017-12-14] MEDS: CEFTRIAXONE/SWI 1gm 1 GM/10 ML SYR IV SCH (08:15)
[2017-12-14] MEDS: PANTOPRAZOLE 40 MG INJ IVP SCH ×2 (08:17→21:44)
[2017-12-14] MEDS: D5 0.9 NS 1,000 ML IV SCH (09:40)
[2017-12-14] MEDS ORDERED: ALBUTEROL 2.5 MG/3 ML NEB SOL NEB PRN (12:01)
--- NOTE | 2017-12-14 13:26 | PN ---
Date of Progress Note: 12/14/2017 Subjective: The patient was seen this morning for followup. No new complaints or problems reported by her. Her daughter was present with her at bedside. The patient is tolerating small amount of clear liquid diet well. She is passing gas per rectum, but no bowel movement yet. No nausea. No vomiting. No abdominal pain. Vital signs reviewed. She has some confusion problem and daughter is trying to re-orient her. Objective: Vital Signs: Reviewed. HEENT: Unremarkable. Lungs: Clear to auscultation. No rhonchi. No rales. Heart: Sounds normal. Abdomen: Soft. Bowel sounds normal. No guarding, rigidity, tenderness, or distention. Extremities: Lymphedema of both lower extremity. Overall, leg swelling is much better than before. The patient does have some swelling of upper extremity , mostly around proximal forearm and lower arm in the dependent arm positions on the both sides. Laboratory Data: Labs reviewed. Impression: 1. Small bowel obstruction, status post surgery. 2. Urinary tract infection. 3. Hyponatremia. 4. Anemia. 5. Confusion. 6. Generalized weakness. 7. Hypokalemia. Plan: The patient's sodium level is low; today, it is 126. Potassium is normal. We will go ahead and continue to monitor the patient's electrolytes. At this point, there is no need for any further intervention. Continue TPN and depending on her oral intake, we will decide whether to discontinue TPN in next day or 2 days. We will repeat blood work tomorrow. Consult Physical Therapy. The patient's confusion is to be expected after surgery being in ICU, use of narcotic medications and recent surgery, all these are contributing factors and I expect confusion problem to improve with time. She is stable for transfer out of ICU to regular room and see transfer order for more details. Details discussed with the patient's daughter at bedside. GERMAN/MODL Voice ID: [id number] Report ID: [id number] MTDD
[2017-12-14] MEDS ORDERED: ALBUTEROL 2.5 MG/3 ML NEB SOL NEB SCH (14:00)
[2017-12-14] MEDS: AA 5%/D20W/ELECTROLYTES-TPN 2,000 ML, Lipids 20% 250 ML with MULTIVITAMINS INJ 10 ML IV SCH ×3 (16:58)
[2017-12-14] MEDS: ENOXAPARIN 40 MG/0.4 ML SQ SCH (16:59)
[2017-12-15 04:47] LABS: Absolute Neutrophil 4.4 K/uL (1.8-8.0); Basophils % 0.5 % (0-1.3); Eosinophils % 2.1 % (0-4.4); Hematocrit 25.8 % (36.0-45.0); Lymphocytes % 15.3 % (15.3-44.8); MCH 26.6 pg (27.0-35.0); MCV 79.9 fL (80-100); MPV 7.2 fL (7.6-11.3); Monocytes % 14.9 % (3.3-12.3); RBC Red Blood Cell Count 3.23 M/uL (3.86-4.86)
[2017-12-15 05:02] LABS: ALT/SGPT 6 IU/L (10-60); AST/SGOT 14 IU/L (10-42); Albumin 2.5 g/dL (3.2-5.5); Alkaline Phosphatase 36 IU/L (42-121); BUN Blood Urea Nitrogen 18 mg/dL (6-20); Bicarbonate 23 mEq/L (21-31); Bilirubin Total 0.2 mg/dL (0.3-1.2); Glucose Level 114 mg/dL (65-120); Magnesium 1.8 mg/dL (1.8-2.5); Potassium 3.9 mEq/L (3.6-5.0); Protein, Total 4.7 g/dL (6.0-8.3); Sodium Level 127 mEq/L (135-145)
[2017-12-15] MEDS: LEVOTHYROXINE SOD 0.1 MG TAB PO SCH (05:09)
[2017-12-15] MEDS ORDERED: KCL 20 MEQ/100 mL IVPB 20 MEQ/100 ML BAG IV SCH (06:00)
[2017-12-15] MEDS ORDERED: MAGNESIUM SULFATE 1 gm IVPB 1 GM/100 ML BAG IV ONE (08:00)
[2017-12-15] MEDS: PANTOPRAZOLE 40 MG INJ IVP SCH ×2 (10:32→20:28)
[2017-12-15] MEDS: CEFTRIAXONE/SWI 1gm 1 GM/10 ML SYR IV SCH (10:32)
[2017-12-15] MEDS: METRONIDAZOLE 500mg IVPB 500 MG/100 ML BAG IV SCH ×2 (10:32→17:10)
[2017-12-15] MEDS ORDERED: MINERAL OIL 30 ML UCUP GT ONE (15:17)
[2017-12-15] MEDS: AA 5%/D20W/ELECTROLYTES-TPN 2,000 ML, Lipids 20% 250 ML with MULTIVITAMINS INJ 10 ML IV SCH ×3 (17:09)
[2017-12-15] MEDS: ENOXAPARIN 40 MG/0.4 ML SQ SCH (17:10)
--- NOTE | 2017-12-15 18:23 | P.PN ---
Date of Service: 12/15/17 S: P patient appears to be comfortable on the floor. Was up with physical therapy. On TPN. Still no bowel movement 0: Incision is clean, Yancey catheter draining well. Has occasional bowel sounds A: Surgically improved, her postoperative ileus appears to be resolving P: Anticipate discharge soon. I would recommend [facility] as she will be in a controlled environment close to her family. That way she can have physical therapy, and rehab her back to her home.
--- NOTE | 2017-12-15 23:48 | PN ---
Date of Progress Note: 12/15/2017 Subjective: The patient was seen this morning for followup. No new complaints or problems reported by the patient except she is not eating or drinking anything. The patient's daughter was present wit h her and informed me that she is not drinking anything. She is on clear liquid diet, but refuses to drink. Daughter was wondering about advancing diet, and I did ask the nurse to find out if Dr. Ayaka armenta will allow to advance diet or not. Objective: Vital Signs: Reviewed. HEENT: Examination unremarkable. Lungs: Clear to auscultation. Heart: Sounds normal. Abdomen: Soft, bowel sounds normal. No guarding, rigidity, tenderness, or distention. Extremities: Bilateral trace edema due to lymphedema. Laboratory Data: White count 6.6, hemoglobin 8.6, and platelet count of 396. Sodium 127, potassium 3.9, chloride 100, bicarb 23, BUN 18, creatinine 0.42, and glucose 114. Impression: 1.Small bowel obstruction, status post surgery. 2.Anemia. 3.Hyponatremia. 4.Lymphedema. 5.Generalized weakness. 6.Hiatal hernia. Plan: We will go ahead and continue clear liquid diet. We will advance diet if and when okay with Jacqueline Rodgers. Physical Therapy to work with the patient to start ambulating more. The patient current ly is on TPN and we will have to continue that until she starts to get adequate nutrition by mouth. I did talk to patient about the importance of eating and also discussed details with patient's daught er. Also talked to daughter about discharge planning and my recommendation was to consider a custodial facility placement. The patient's daughter informed me that very likely, the patient will r efuse it, but she will start talking to patient and her brother and they will decide what to do as a family. If the patient does not go to custodial facility, she will require 24 hour care at [facility], but still my fist recommendation is to go to custodial facility to start with. Possible dis charge, sometime this week depending on patient's condition. GERMAN/MODL Voice ID: [id number] Report ID: [id number]
[2017-12-16] MEDS: METRONIDAZOLE 500mg IVPB 500 MG/100 ML BAG IV SCH ×3 (01:26→18:07)
[2017-12-16] MEDS: LEVOTHYROXINE SOD 0.1 MG TAB PO SCH (05:48)
[2017-12-16 05:54] LABS: BUN Blood Urea Nitrogen 18 mg/dL (6-20); Bicarbonate 25 mEq/L (21-31); Glucose Level 115 mg/dL (65-120); Magnesium 1.8 mg/dL (1.8-2.5); Potassium 3.8 mEq/L (3.6-5.0); Sodium Level 127 mEq/L (135-145)
[2017-12-16] MEDS ORDERED: MAGNESIUM SULFATE 1 gm IVPB 1 GM/100 ML BAG IV ONE (06:08)
[2017-12-16] MEDS ORDERED: POTASSIUM CL SA 10 MEQ TAB PO ONE (09:00)
[2017-12-16] MEDS ORDERED: POTASSIUM 25 MEQ EFFERV TAB PO ONE (09:00)
[2017-12-16] MEDS: PANTOPRAZOLE 40 MG INJ IVP SCH ×2 (10:43→20:36)
[2017-12-16] MEDS: CEFTRIAXONE/SWI 1gm 1 GM/10 ML SYR IV SCH (10:44)
[2017-12-16] MEDS: AA 5%/D20W/ELECTROLYTES-TPN 2,000 ML, Lipids 20% 250 ML with MULTIVITAMINS INJ 10 ML IV SCH ×3 (18:07)
[2017-12-16] MEDS: ENOXAPARIN 40 MG/0.4 ML SQ SCH (18:07)
[2017-12-17] MEDS: METRONIDAZOLE 500mg IVPB 500 MG/100 ML BAG IV SCH ×3 (00:02→18:15)
--- NOTE | 2017-12-17 00:37 | PN ---
Date of Progress Note: 12/16/2017 Subjective: The patient was seen this morning for followup. No new complaints or problems reported by the patient. Lying in bed, not in distress. Her son was present with her at bedside. The patien t ate little better yesterday than previous day, and she is participating with Physical Therapy, alth ough not able to do much. No abdominal pain. She did not have any bowel movement till I saw her tod ay, but during the course of day today, she did have a bowel movement, and nurse called and informed me that it was dark stool. Objective: Vital Signs: Reviewed. HEENT: Unremarkable. Lungs: Clear to auscultation. Heart: Sounds normal. Abdomen: Soft, bowel sounds normal. No guarding, rigidity, tenderness, or distention. Extremities: Trace edema of both lower extremities. Laboratory Data: Reviewed. Impression: 1.Small bowel obstruction, resolved. 2.Generalized weakness. 3.Hyponatremia. 4.Urinary tract infection. 5.Anemia. Plan: We will go ahead and continue current TPN for nutritional support. Diet will be advanced as p er instruction from Dr. Rodgers. Physical Therapy to continue to work with the patient. The patient 's family has started looking into [facility] facility placement as per my discussion with the p alvino's daughter yesterday. Possible discharge towards the later part of this week. Once we know t he patient is able to tolerate diet well, we will plan to discontinue TPN and that may happen in next day or so. We will repeat blood work tomorrow. Monitor the patient's hemoglobin for any significan t anemia problem. So far the patient has not required any blood transfusion during this hospitalization. We will order stool guaiac. GERMAN/MODL Voice ID: [id number] Report ID: [id number]
[2017-12-17 05:15] LABS: BUN Blood Urea Nitrogen 21 mg/dL (6-20); Bicarbonate 26 mEq/L (21-31); Glucose Level 107 mg/dL (65-120); Magnesium 1.9 mg/dL (1.8-2.5); Potassium 3.8 mEq/L (3.6-5.0); Sodium Level 126 mEq/L (135-145)
[2017-12-17] MEDS: LEVOTHYROXINE SOD 0.1 MG TAB PO SCH (05:34)
[2017-12-17] MEDS ORDERED: KCL 20 MEQ/100 mL IVPB 20 MEQ/100 ML BAG IV SCH (07:00)
[2017-12-17] MEDS: D5 0.9 NS 1,000 ML IV SCH (08:57)
[2017-12-17] MEDS: CEFTRIAXONE/SWI 1gm 1 GM/10 ML SYR IV SCH (08:58)
[2017-12-17] MEDS: PANTOPRAZOLE 40 MG INJ IVP SCH ×2 (08:58→20:13)
[2017-12-17 09:21] LABS: Absolute Lymphocytes (CBC) 1.1 K/uL (0.7-4.9); Absolute Monocytes 1.2 K/uL (0.1-1.3); Absolute Neutrophil 6.3 K/uL (1.8-8.0); Hematocrit 29.9 % (36.0-45.0); MCH 26.7 pg (27.0-35.0); MCV 80.9 fL (80-100); MPV 7.4 fL (7.6-11.3); Monocytes % 13.2 % (3.3-12.3); RBC Red Blood Cell Count 3.69 M/uL (3.86-4.86)
[2017-12-17] MEDS: SOD FERRIC GLUC COMPLX/SUCROSE 250 MG in NA CHLORIDE 0.9% 250 ML IV SCH (10:34)
[2017-12-17] MEDS: ENOXAPARIN 40 MG/0.4 ML SQ SCH (18:15)
[2017-12-17 22:18] VITALS: O2SAT 94
--- NOTE | 2017-12-17 23:29 | PN ---
Date of Progress Note: 12/17/2017 Subjective: The patient was seen this morning for followup. No new complaints or problems reported by the patient's son and the patient actually was found to be sitting on the bedside commode today fo r the first time during this hospitalization that I have seen her out of bed. Looking much better. Overall feels better. She is having bowel movement as of yesterday. No nausea. No vomiting. Her a ppetite is slowly improving. Objective: Vital Signs: Reviewed. HEENT: Unremarkable. Lungs: Clear to auscultation. Heart: Sounds normal. Abdomen: Soft. Bowel sounds normal. No guarding, rigidity, tenderness, or distention. Extremities: Trace leg edema. Laboratory Data: Sodium 126, potassium is 3.8, chloride 98, bicarb 26. BUN 21, creatinine 0.47. Gl ucose 107. Magnesium 1.9. Impression: 1.Small bowel obstruction, resolved, status post surgery. 2.Hypertension. 3.Hyponatremia. 4.Anemia. 5.Gastrointestinal bleeding. 6.Urinary tract infection. Plan: The patient's stool occult blood test came back positive today. Hemoglobin is stable. No nee d for any blood transfusion. We will go ahead and continue current medications, continue current ant ibiotics. Order was written to discontinue her TPN today and start IV fluid per order. The patient was encouraged to eat and possible discharge to go to [facility] tomorrow depending on patient's condition. We will repeat blood work tomorrow. GERMAN/MODL Voice ID: [id number] Report ID: [id number]
[2017-12-18] MEDS: METRONIDAZOLE 500mg IVPB 500 MG/100 ML BAG IV SCH ×2 (00:20→09:14)
[2017-12-18 04:57] LABS: BUN Blood Urea Nitrogen 16 mg/dL (6-20); Bicarbonate 24 mEq/L (21-31); Glucose Level 89 mg/dL (65-120); Potassium 3.6 mEq/L (3.6-5.0); Sodium Level 130 mEq/L (135-145)
[2017-12-18] MEDS: D5 0.9 NS 1,000 ML IV SCH (05:16)
[2017-12-18] MEDS: LEVOTHYROXINE SOD 0.1 MG TAB PO SCH (05:16)
[2017-12-18] MEDS ORDERED: KCL 20 MEQ/100 mL IVPB 20 MEQ/100 ML BAG IV SCH (07:00)
[2017-12-18 08:42] LABS: Hematocrit 25.7 % (36.0-45.0)
[2017-12-18] MEDS: CEFTRIAXONE/SWI 1gm 1 GM/10 ML SYR IV SCH (09:14)
[2017-12-18] MEDS: SOD FERRIC GLUC COMPLX/SUCROSE 250 MG in NA CHLORIDE 0.9% 250 ML IV SCH (09:14)
[2017-12-18] MEDS: PANTOPRAZOLE 40 MG INJ IVP SCH (09:14)
[2017-12-18 15:25] VITALS: BP 129/62; TEMP 97.5
--- NOTE | 2017-12-18 19:06 | DS ---
Date of Discharge: 12/18/2017 Disposition: Discharged to go to alf facility. Physical Examination: HEENT: Unremarkable. Lungs: Clear to auscultation. Heart: Sounds normal. Abdomen: Soft. Bowel sounds normal. No guarding, rigidity, tenderness, or distention. Extremities: Bilateral trace edema due to lymphedema. Discharge Medications And Instructions: 1.Continue fall precautions. 2.Follow with Dr. Rodgers next week. 3.Follow up with Dr. Rock next week at [facility]. 4.Consult Physical Therapy and Occupational Therapy. 5.senior living physician to monitor CBC, chem-7, and magnesium level on a regular basis. 6.Pantoprazole 40 mg p.o. daily. 7.Spironolactone 25 mg p.o. twice a day. 8.Levothyroxine 0.1 mg p.o. daily. 9.Calcium 2 tablets twice a day with vitamin D. 10.Discontinue alendronate, aspirin, famotidine, and Augmentin. 11.Hayder-Plex 85 mg p.o. daily. Hospital Course: This is an 87-year-old female patient, who was admitted to the hospital with abdomi nal pain, nausea, vomiting. Please see dictated H and P for more information. The patient was evalu ated in emergency room and was diagnosed as having small bowel obstruction and was admitted to [facility]. Dr. Rodgers, general surgeon, who was j2ee application developer consulted. The patient was treated initially with conservative treatment. We tried to place an NG tube. Nursing staff was not successful placing NG tube because it was curling out from the mouth and would not go down. So, after multiple attempt s, we were not able to place the NG tube, so we kept her n.p.o., IV fluid, IV antibiotics were given and the patient's nausea and vomiting actually improved, but did not go away completely. Once her na usea and vomiting improved, Dr. Rodgers did allow her to start having some clear liquid diet and subs equently diet was advanced and at that time she started having problem again with worsening of the na usea and vomiting, and GI consultation was obtained. IV Protonix was started. Antibiotics were cont inued. Dr. Her did an EGD from GI point of view and found out that the patient has significantl y large amount of yellowish to greenish colored liquid retained in her body of the stomach, and she a lso had a large hiatal hernia and also obtained large amount of fluid from her beginning part of the small intestine. He suspected persistence of bowel obstruction. Another CAT scan was repeated at th at time. After the EGD procedure was done, Dr. Rodgers was contacted and he ordered another CAT scan . So, CAT scan results came back, complete bowel obstruction and surgical intervention was recommend ed at that time by him since the patient was already in the hospital by that time for 4-5 days and wa s not improving with conservative treatment. The patient had surgery done for this small bowel obstr uction and there were multiple obstructive bands/scar tissue causing this bowel obstruction and those were removed. The patient did not require any resection of bowel and after the surgery, the patient was admitted to ICU, was on ventilator. Dr. Bray was consulted for management of ventilator and the patient was successfully extubated and subsequently was transferred out of ICU to regular room. The patient started to tolerate clear liquid diet well and then Dr. Rodgers advanced her diet. Phys ical Therapy was consulted. The patient has significant generalized weakness and it was recommended to family that she should go to alf facility and Social Service was consulted. Once arra ngements completed, today the patient was discharged to go to alf facility using a facili ty of family's choice. Her lowest hemoglobin was 7.3 and she did receive blood transfusion. Last he moglobin was 8.4 that was today. She did have some occult blood positive stool and her hemoglobin sh ould be monitored and if necessary give blood transfusion, but right now she is hemodynamically stabl e. Urine culture grew Klebsiella. The patient did require TPN for nutritional support during this hospitalization. Final Diagnoses: 1.Small bowel obstruction due to intraabdominal adhesions. 2.Urinary tract infection. 3.Hypokalemia. 4.Anemia. 5.Lymphedema, legs. 6.Osteoporosis. 7.Gastroesophageal reflux disease. 8.Hiatal hernia. 9.Hypothyroidism. 10.Pleural effusion. 11.Chronic obstructive pulmonary disease. 12.Generalized weakness. 13.Hyponatremia. Laboratory Data: Last sodium today 130, potassium 3.6, chloride 103, bicarb 24, BUN 16, creatinine 0 .53, glucose 89. Last hemoglobin today 8.4, last white count yesterday 8.8, lowest hemoglobin 7.3 on 12/11/2017. When she came in on 12/04/2017, hemoglobin was 10.4. GERMAN/MODL Voice ID: [id number] Report ID: [id number]
== END 2017-12-18 15:32 | DRG 335 ==
LOC: ER 14:27 → ERHOLD 17:20 → 2ND 20:04 → 3RD-ICU 12-10 19:37 → 2ND 12-14 10:58
PROVIDERS: ADMIT Internal Medicine; ATTEND Internal Medicine
PROC: 02HV33Z Insertion of Infusion Device into Superior Vena Cava, Percutaneous Approach (ICD-10-PCS; 2017-12-09)
PROC: 0DJ08ZZ Inspection of Upper Intestinal Tract, Via Natural or Artificial Opening Endoscopic (ICD-10-PCS; 2017-12-10)
PROC: 0DN80ZZ Release Small Intestine, Open Approach (ICD-10-PCS; principal; 2017-12-10 12:00)
DX: K56.50 Intestinal adhesions [bands], unspecified as to partial versus complete obstruction (principal); J95.821 Acute postprocedural respiratory failure; J90 Pleural effusion, not elsewhere classified; E87.1 Hypo-osmolality and hyponatremia; N39.0 Urinary tract infection, site not specified; D62 Acute posthemorrhagic anemia; E87.6 Hypokalemia; I89.0 Lymphedema, not elsewhere classified; D64.9 Anemia, unspecified; M81.0 Age-related osteoporosis without current pathological fracture; K21.9 Gastro-esophageal reflux disease without esophagitis; E03.9 Hypothyroidism, unspecified; J44.9 Chronic obstructive pulmonary disease, unspecified; E83.42 Hypomagnesemia; K20.9 Esophagitis, unspecified; K44.9 Diaphragmatic hernia without obstruction or gangrene; F03.90 Unspecified dementia, unspecified severity, without behavioral disturbance, psychotic disturbance, mood disturbance, and anxiety; R62.7 Adult failure to thrive; Y83.8 Other surgical procedures as the cause of abnormal reaction of the patient, or of later complication, without mention of misadventure at the time of the procedure; Y92.239 Unspecified place in hospital as the place of occurrence of the external cause
CPT/HCPCS: 17250; 36415; 71045; 74018; 74176; 74177; 76700; 80048; 80053; 80076; 81003; 81015; 82274; 82550; 82553; 82805; 82962; 83605; 83690; 83735; 83880; 84100; 84132; 84145; 84484; 85014; 85018; 85025; 85610; 85652; 85730; 86140; 86850; 86900; 86901; 87040; 87077; 87086; 87088; 87186; 94002; 94003; 94640; 97002; 97163; 99285; C9113; J0696; J0744; J1630; J1650; J2250; J2270; J2405; J2550; J2765; J2916; J3010; J3475; J7030; P9016; Q9967

== ENCOUNTER 2018-12-03 13:14 | Emergency (ER) | payer OTHER, MEDICARE ==
[2018-12-03] MEDS ORDERED: NA CHLORIDE 0.9% 1,000 ML ONE (14:55)
[2018-12-03 15:14] LABS: Absolute Lymphocytes (CBC) 0.9 K/uL (0.7-4.9); Absolute Monocytes 0.6 K/uL (0.1-1.3); Absolute Neutrophil 4.6 K/uL (1.8-8.0); Basophils % 0.5 % (0-1.3); Eosinophils % 1.8 % (0-4.4); Lymphocytes % 14.1 % (15.3-44.8); MPV 7.4 fL (7.6-11.3); RBC Red Blood Cell Count 4.01 M/uL (3.86-4.86)
[2018-12-03 15:15] LABS: Protime INR 1.04
[2018-12-03 15:29] LABS: ALT/SGPT 10 U/L (12-78); AST/SGOT 13 U/L (15-37); Albumin 3.1 g/dL (3.4-5.0); Alkaline Phosphatase 117 U/L (45-117); BUN Blood Urea Nitrogen 16 mg/dL (7-18); Bicarbonate 24 mmol/L (21-32); Bilirubin Direct 0.2 mg/dL (0-0.2); Bilirubin Total 1.1 mg/dL (0.2-1.0); Creatine Phosphokinase 86 U/L (26-192); Glucose Level 106 mg/dL (74-106); Lipase 94 U/L (73-393); Potassium 3.2 mmol/L (3.5-5.1); Protein, Total 6.1 g/dL (6.4-8.2); Sodium Level 140 mmol/L (136-145); Troponin (Emerg Dept Use Only) < 0.02 ng/mL (0.0-0.045)
--- NOTE | 2018-12-03 15:33 | RAD REPORT ---
EXAM DESCRIPTION: RAD - Chest Single View - 12/03/2018 2:40 pm CLINICAL HISTORY: Shortness of breath, COPD COMPARISON: The 13 TECHNIQUE: AP portable chest image was obtained 1437 hour . FINDINGS: Fibrotic lung pattern is again noted. No focal lung parenchymal process. No failure or vol ume overload. Interstitial pattern is similar to comparison. Heart and vasculature are normal. No measurable pleural effusion and no pneumothorax. No acute bone findings seen. 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 No acute aorti c findings suspected. IMPRESSION: Fibrotic lung pattern similar to comparison. Above detailed chest findings are not significantly different over the short interval.
[2018-12-03 21:23] LABS: Urine Blood 3+ (NEG); Urine Glucose NEGATIVE (NEG); Urine Protein NEGATIVE (NEG); Urine Specific Gravity 1.015 (1.005-1.030)
[2018-12-03 21:38] LABS: Urine Bacteria >50 /HPF (<20); Urine RBC 20-50 /HPF (NONE SEEN)
[2018-12-03 21:39] LABS: Urine Culture Reflex Order NOT NEEDED
--- NOTE | 2018-12-03 23:50 | ER ---
Nurse's Notes [facility] Name: Julissa Courtney Age: 88 yrs Sex: Female : 1930 Arrival Date: 12/03/2018 Time: 13:21 Bed 16 Private MD: Diagnosis: Urinary tract infection, site not specified Presentation: 12/03 13:22 Presenting complaint: EMS states: She has been having issues since she fell 2 weeks aj1 ago, recently she has started to have blood in her urine, she has had a poor appetite and has not been as independent as she usually is per her caregiver. Transition of care: patient was not received from another setting of care. Onset of symptoms is unknown. Risk Assessment: Do you want to hurt yourself or someone else? Patient reports no desire to harm self or others. Initial Sepsis Screen: Does the patient meet any 2 criteria? No. Patient's initial sepsis screen is negative. Does the patient have a suspected source of infection? Yes: Dysuria/Frequency/Urgency/UTI. Care prior to arrival: None. 13:22 Method Of Arrival: EMS: [facility] aj 13:22 Acuity: MIKE 3 aj1 Triage Assessment: 13:25 General: Appears in no apparent distress. comfortable, Behavior is calm, cooperative, aj1 appropriate for age. Pain: Denies pain. Historical: - Allergies: 13:25 Sulfa (Sulfonamide Antibiotics); aj1 13:25 tranqulizer (unknown); aj1 - PMHx: 13:25 Arthritis; Dementia; Hypothyroidism; lymphedema; Thyroid problem; Ulcers; aj1 - PSHx: 13:25 Appendectomy; aj1 - Immunization history:: Flu vaccine is not up to date. - Social history:: Smoking status: Patient/guardian denies using tobacco. - Ebola Screening: : Patient denies travel to an Ebola-affected area in the 21 days before illness onset. Screenin:26 Abuse screen: Denies threats or abuse. Denies injuries from another. Nutritional aj1 screening: No deficits noted. Tuberculosis screening: No symptoms or risk factors identified. Assessment: 13:26 General: Appears in no apparent distress. comfortable, Behavior is calm, cooperative, aj1 appropriate for age. Pain: Denies pain. Neuro: Level of Consciousness is awake, alert, obeys commands, Oriented to person, place, time, Appropriate for age Patient is forgetful, states she does not know why they sent her here. Cardiovascular: Patient's skin is warm and dry. Respiratory: Airway is patent Respiratory effort is even, unlabored, Respiratory pattern is regular, symmetrical. GI: No signs and/or symptoms were reported involving the gastrointestinal system. : Parent/caregiver report the patient having blood in urine. EENT: No signs and/or symptoms were reported regarding the EENT system. Derm: No signs and/or symptoms reported regarding the dermatologic system. Skin is pink, warm \T\ dry. normal. Musculoskeletal: No signs and/or symptoms reported regarding the musculoskeletal system. Circulation, motion, and sensation intact. 14:35 Reassessment: Patient appears in no apparent distress at this time. No changes from aj1 previously documented assessment. Patient and/or family updated on plan of care and expected duration. Pain level reassessed. Patient is alert, oriented x 3, equal unlabored respirations, skin warm/dry/pink. 15:35 Reassessment: Patient and/or family updated on plan of care and expected duration. Pain aj1 level reassessed. General: Appears in no apparent distress. comfortable, Behavior is calm, cooperative, appropriate for age. Neuro: Level of Consciousness is awake, alert, obeys commands. Cardiovascular: Patient's skin is warm and dry. Rhythm is sinus rhythm. Respiratory: Airway is patent Respiratory effort is even, unlabored, Respiratory pattern is regular, symmetrical. Derm: Skin is pink, warm \T\ dry. normal. Musculoskeletal: Circulation, motion, and sensation intact. 16:40 Reassessment: Patient appears in no apparent distress at this time. No changes from aj1 previously documented assessment. Patient and/or family updated on plan of care and expected duration. Pain level reassessed. Patient is alert, oriented x 3, equal unlabored respirations, skin warm/dry/pink. 17:30 Reassessment: Patient and/or family updated on plan of care and expected duration. Pain aj1 level reassessed. General: Appears in no apparent distress. comfortable, Behavior is calm, cooperative, appropriate for age. Pain: Denies pain. Neuro: Level of Consciousness is awake, alert, obeys commands. Cardiovascular: Patient's skin is warm and dry. Rhythm is sinus rhythm. Respiratory: Airway is patent Respiratory effort is even, unlabored, Respiratory pattern is regular, symmetrical. Derm: No signs and/or symptoms reported regarding the dermatologic system. Skin is pink, warm \T\ dry. normal. Musculoskeletal: Circulation, motion, and sensation intact. 18:17 Reassessment: Assisted patient to bedside commode, patient was able to urinate but aj1 urine was contaminated with fecal matter. Patient was assisted back to bed. Explained to patient that we cannot use a sample that is contaminated with feces, offered to attempt straight cath for urine sample. Patient refused. Patient's son is at bedside, is upset that the urine sample that the patient brought with her to the ER from home wasn't used. Explained to patient's son that it is against protocol to use a urine sample brought from home as we are not able to verify how the urine was obtained, when the urine was obtained and from who the urine was obtained. Patient's son verbalized understanding, but remains upset at this time. 19:10 Reassessment: Patient appears in no apparent distress at this time. No changes from jb4 previously documented assessment. Patient and/or family updated on plan of care and expected duration. Pain level reassessed. 20:15 Reassessment: Patient appears in no apparent distress at this time. No changes from jb4 previously documented assessment. Patient and/or family updated on plan of care and expected duration. Pain level reassessed. Family at the bedside. 21:15 Reassessment: Patient appears in no apparent distress at this time. No changes from jb4 previously documented assessment. Patient and/or family updated on plan of care and expected duration. Pain level reassessed. Family is at the bedside. 22:00 Reassessment: Patient appears in no apparent distress at this time. No changes from jb4 previously documented assessment. Patient and/or family updated on plan of care and expected duration. Pain level reassessed. 23:00 Reassessment: Patient appears in no apparent distress at this time. No changes from jb4 previously documented assessment. Patient and/or family updated on plan of care and expected duration. Pain level reassessed. Family is at the bedside. 12/04 00:30 Reassessment: Patient appears in no apparent distress at this time. No changes from jb4 previously documented assessment. Patient and/or family updated on plan of care and expected duration. Pain level reassessed. Pt assisted out of ED Via wheelchair. Family is present, verbalized understanding of Discharge, and follow up instructions. Vital Signs: 12/03 13:25 BP 145 / 85; Pulse 84; Resp 18; Temp 98.1; Pulse Ox 96% on R/A; Weight 58.97 kg (R); aj1 Height 5 ft. 6 in. (167.64 cm) (R); Pain 0/10; 14:35 BP 157 / 73; Pulse 86; Resp 20; Pulse Ox 97% on R/A; aj1 15:35 BP 121 / 73; Pulse 80; Resp 18; Pulse Ox 97% on R/A; aj1 16:35 BP 133 / 80; Pulse 74; Resp 20; Pulse Ox 97% on R/A; aj1 17:30 BP 154 / 80; Pulse 72; Resp 18; Pulse Ox 97% on R/A; aj1 18:21 BP 153 / 86; Pulse 72; Resp 20; Temp 97.8(O); Pulse Ox 96% on R/A; aj1 19:00 BP 169 / 75; Pulse 67; Resp 18; Pulse Ox 96% on R/A; jb4 20:15 BP 147 / 93; Pulse 78; Resp 18; Pulse Ox 96% on R/A; jb4 21:30 BP 141 / 76; Pulse 72; Resp 16; Pulse Ox 97% on R/A; jb4 23:30 BP 160 / 87; Pulse 68; Resp 18; Pulse Ox 98% on R/A; jb4 12/04 00:00 BP 162 / 84; Pulse 70; Resp 16; Pulse Ox 97% on R/A; jb4 12/03 13:25 Body Mass Index 20.98 (58.97 kg, 167.64 cm) aj1 ED Course: 12/03 13:21 Patient arrived in ED. aj1 13:24 Triage completed. aj1 13:25 Arm band placed on. aj1 13:26 Patient has correct armband on for positive identification. Bed in low position. Call aj1 light in reach. Side rails up X 1. house coordinator on. Pulse ox on. NIBP on. 13:26 No provider procedures requiring assistance completed. aj1 13:46 Tushar Silver MD is Attending Physician. 14:35 Gianna Trevizo RN is Primary Nurse. aj1 14:40 Chest Single View XRAY In Process Unspecified. EDPA 16:01 EKG done, by windows server support technician. reviewed by Tushar Silver MD. sm3 19:15 Report given to BRADEN La. aj1 12/04 00:15 IV discontinued, intact, bleeding controlled. jb4 Administered Medications: 12/03 14:57 Drug: NS 0.9% 1000 ml Route: IV; Rate: 1 bolus; Site: left antecubital; aj1 12/04 00:05 Drug: Rocephin - (cefTRIAXone) 1 grams {Note: Administered IV push per pharmacy jb4 protocol.} Route: IVPB; Infused Over: 30 mins; Site: left antecubital; 00:07 Follow up: Response: No adverse reaction; IV Status: Completed infusion; IV Intake: [id number] Intake: 00:07 IV: 10ml; Total: 10ml. jb4 Outcome: 12/03 23:49 Discharge ordered by . 4 12/04 00:15 Discharged to home via wheelchair, with family. jb4 Condition: stable Discharge instructions given to patient, family, metal buildings assembler, Instructed on discharge instructions, follow up and referral plans. medication usage, Demonstrated understanding of instructions, follow-up care, medications, Prescriptions given X 3. 00:34 Patient left the ED. jb4 Signatures: Dispatcher [employer] EDPA Gianna Trevizo RN RN aj1 Nicolas Irby RN RN jb4 Tushar Silver MD MD gs Wadley, Terrence, MD MD 4 Stephanie Good 3 Corrections: (The following items were deleted from the chart) 12/03 18:21 13:26 General: Appears in no apparent distress. distressed, Behavior is calm, aj1 cooperative, appropriate for age, aj1
--- NOTE | 2018-12-03 23:50 | EDPHYS ---
Physician Documentation [facility] Name: Julissa Courtney Age: 88 yrs Sex: Female : 1930 Arrival Date: 12/03/2018 Time: 13:21 Bed 16 Private MD: ED Physician Tushar Silver HPI: 12/04 09:04 This 88 yrs old Female presents to ER via EMS with complaints of Urinary gs Problem. 09:04 The patient presents with urinary symptoms, dysuria, frequency, hematuria. Onset: The gs symptoms/episode began/occurred yesterday. Modifying factors: The symptoms are alleviated by nothing, the symptoms are aggravated by nothing. Associated signs and symptoms: Pertinent positives: dysuria. Severity of symptoms: At their worst the symptoms were severe, in the emergency department the symptoms are unchanged. The patient has experienced similar episodes in the past, several times. Historical: - Allergies: 12/03 13:25 Sulfa (Sulfonamide Antibiotics); aj1 13:25 tranqulizer (unknown); aj1 - PMHx: 13:25 Arthritis; Dementia; Hypothyroidism; lymphedema; Thyroid problem; Ulcers; aj1 - PSHx: 13:25 Appendectomy; aj1 - Immunization history:: Flu vaccine is not up to date. - Social history:: Smoking status: Patient/guardian denies using tobacco. - Ebola Screening: : Patient denies travel to an Ebola-affected area in the 21 days before illness onset. ROS: 12/04 09:04 All other systems are negative. gs Exam: 09:04 Head/Face: Normocephalic, atraumatic. Eyes: Pupils equal round and reactive to light, gs extra-ocular motions intact. Lids and lashes normal. Conjunctiva and sclera are non-icteric and not injected. Cornea within normal limits. Periorbital areas with no swelling, redness, or edema. ENT: Nares patent. No nasal discharge, no septal abnormalities noted. Tympanic membranes are normal and external auditory canals are clear. Oropharynx with no redness, swelling, or masses, exudates, or evidence of obstruction, uvula midline. Mucous membranes moist. Neck: Trachea midline, no thyromegaly or masses palpated, and no cervical lymphadenopathy. Supple, full range of motion without nuchal rigidity, or vertebral point tenderness. No Meningismus. Chest/axilla: Normal chest wall appearance and motion. Nontender with no deformity. No lesions are appreciated. Cardiovascular: Regular rate and rhythm with a normal S1 and S2. No gallops, murmurs, or rubs. Normal PMI, no JVD. No pulse deficits. Respiratory: Lungs have equal breath sounds bilaterally, clear to auscultation and percussion. No rales, rhonchi or wheezes noted. No increased work of breathing, no retractions or nasal flaring. Abdomen/GI: Soft, non-tender, with normal bowel sounds. No distension or tympany. No guarding or rebound. No evidence of tenderness throughout. Back: No spinal tenderness. No costovertebral tenderness. Full range of motion. Skin: Warm, dry with normal turgor. Normal color with no rashes, no lesions, and no evidence of cellulitis. MS/ Extremity: Pulses equal, no cyanosis. Neurovascular intact. Full, normal range of motion. Neuro: Awake and alert, GCS 15, oriented to person, place, time, and situation. Cranial nerves II-XII grossly intact. Motor strength 5/5 in all extremities. Sensory grossly intact. Cerebellar exam normal. Normal gait. 09:04 Constitutional: The patient appears alert, awake. Vital Signs: 12/03 13:25 BP 145 / 85; Pulse 84; Resp 18; Temp 98.1; Pulse Ox 96% on R/A; Weight 58.97 kg (R); aj1 Height 5 ft. 6 in. (167.64 cm) (R); Pain 0/10; 14:35 BP 157 / 73; Pulse 86; Resp 20; Pulse Ox 97% on R/A; aj1 15:35 BP 121 / 73; Pulse 80; Resp 18; Pulse Ox 97% on R/A; aj1 16:35 BP 133 / 80; Pulse 74; Resp 20; Pulse Ox 97% on R/A; aj1 17:30 BP 154 / 80; Pulse 72; Resp 18; Pulse Ox 97% on R/A; aj1 18:21 BP 153 / 86; Pulse 72; Resp 20; Temp 97.8(O); Pulse Ox 96% on R/A; aj1 19:00 BP 169 / 75; Pulse 67; Resp 18; Pulse Ox 96% on R/A; jb4 20:15 BP 147 / 93; Pulse 78; Resp 18; Pulse Ox 96% on R/A; 4 21:30 BP 141 / 76; Pulse 72; Resp 16; Pulse Ox 97% on R/A; [facility] 23:30 BP 160 / 87; Pulse 68; Resp 18; Pulse Ox 98% on R/A; [facility] 12/04 00:00 BP 162 / 84; Pulse 70; Resp 16; Pulse Ox 97% on R/A; [facility] 12/03 13:25 Body Mass Index 20.98 (58.97 kg, 167.64 cm) aj1 MDM: 12/03 14:27 Patient medically screened. 12/04 09:04 Differential diagnosis: urinary tract infection, sepsis, pyelonephritis. Data reviewed: vital signs, nurses notes, lab test result(s), EKG, radiologic studies. Response to treatment: the patient's symptoms have markedly improved after treatment. 12/03 14:27 Order name: Basic Metabolic Panel 12/03 14:27 Order name: Blood Culture Adult (2) 12/03 14:27 Order name: CBC with Diff 12/03 14:27 Order name: CPK; Complete Time: 15:43 12/03 14:27 Order name: Lactate; Complete Time: 15:43 12/03 14:27 Order name: LFT's; Complete Time: 15:43 12/03 14:27 Order name: Lipase; Complete Time: 15:43 12/03 14:27 Order name: Procalcitonin; Complete Time: 16:01 12/03 14:27 Order name: Protime (+inr); Complete Time: 15:43 12/03 14:27 Order name: Troponin (emerg Dept Use Only); Complete Time: 15:43 12/03 14:27 Order name: Urine Microscopic Only 12/03 14:27 Order name: Basic Metabolic Panel; Complete Time: 15:43 [facility] 12/03 14:27 Order name: Blood Culture [facility] 12/03 14:27 Order name: CBC with Automated Diff; Complete Time: 15:43 [facility] 12/03 14:27 Order name: Chest Single View XRAY; Complete Time: 15:43 12/03 14:27 Order name: Accucheck; Complete Time: 14:57 12/03 14:27 Order name: Cardiac monitoring; Complete Time: 14:39 12/03 14:27 Order name: EKG - Nurse/Tech; Complete Time: 18:16 12/03 14:27 Order name: IV Saline Lock - Large Bore; Complete Time: 14:57 12/03 14:27 Order name: Labs collected and sent; Complete Time: 14:57 12/03 14:27 Order name: O2 Per Protocol; Complete Time: 14:39 12/03 14:27 Order name: O2 Sat Monitoring; Complete Time: 14:39 12/03 14:27 Order name: Urine Dipstick-Ancillary (obtain specimen); Complete Time: 21:57 12/03 17:48 Order name: EKG Electrocardiogram; Complete Time: 17:52 EDAL 12/03 18:14 Order name: Diet Regular; Complete Time: 18:14 [facility] 12/03 21:15 Order name: Urine Dipstick--Ancillary (enter results) oe Administered Medications: 12/03 14:57 Drug: NS 0.9% 1000 ml Route: IV; Rate: 1 bolus; Site: left antecubital; [facility] 12/04 00:05 Drug: Rocephin - (cefTRIAXone) 1 grams {Note: Administered IV push per pharmacy jb4 protocol.} Route: IVPB; Infused Over: 30 mins; Site: left antecubital; 00:07 Follow up: Response: No adverse reaction; IV Status: Completed infusion; IV Intake: [id number] Disposition: 12/03/18 23:49 Discharged to Home. Impression: Urinary tract infection, site not specified. - Condition is Stable. - Discharge Instructions: Urinary Tract Infection, Adult, Urinary Tract Infection, Adult, [id number]. - Prescriptions for Pyridium 200 mg Oral Tablet - take 1 tablet by ORAL route every 8 hours for 3 days; 9 tablet. Zofran 4 mg Oral Tablet - take 1 tablet by ORAL route every 12 hours As needed; 20 tablet. Macrobid 100 mg Oral Capsule - take 1 capsule by ORAL route every 12 hours for 10 days; 20 capsule. - Medication Reconciliation Form, Thank You Letter, Antibiotic Education, Prescription Opioid Use form. - Follow up: Private Physician; When: Upon discharge from the Emergency Department; Reason: If symptoms return, Recheck today's complaints, Continuance of care. - Problem is new. - Symptoms have improved. Signatures: Dispatcher [employer] EDMS Gianna Trevizo RN RN aj1 Nicolas Irby RN RN jb4 Tushar Silver MD MD gs Asael Foster MD MD tw4 Corrections: (The following items were deleted from the chart) 00:34 12/03 23:49 12/03/2018 23:49 Discharged to Home. Impression: Urinary tract infection, jb4 site not specified. Condition is Stable. Forms are Medication Reconciliation Form, Thank You Letter, Antibiotic Education, Prescription Opioid Use. Follow up: Private Physician; When: Upon discharge from the Emergency Department; Reason: If symptoms return, Recheck today's complaints, Continuance of care. Problem is new. Symptoms have improved. tw4
[2018-12-04] MEDS ORDERED: CEFTRIAXONE/SWI 1gm 1 GM/10 ML SYR ONE (00:14)
[2018-12-04 02:16] VITALS: TEMP 97.8
[2018-12-04 02:23] VITALS: BP 162/84; O2SAT 97
--- NOTE | 2018-12-04 14:27 | EKG ---
Test Date: 2018-12-03 Test Time: 16:01:37 Demographer: NAVEEN MEASUREMENT RESULTS: Intervals: Rate: 69 [place]: 182 QRSD: 76 QT: 422 QTc: 452 [place]: P: 60 [place]: 182 QRS: 56 T: 24 INTERPRETIVE STATEMENTS: Normal sinus rhythm Normal ECG Compared to ECG 10/30/2017 08:18:02 Fusion complex(es) no longer present ST (T wave) deviation no longer present Electronically Signed On 12-04-18 14:27:14 CDT by David Montez
== END 2018-12-04 00:34 | disposition home or self-care (01) ==
LOC: ER 13:14
DX: N39.0 Urinary tract infection, site not specified (principal); Z88.2 Allergy status to sulfonamides; Z88.8 Allergy status to other drugs, medicaments and biological substances
CPT/HCPCS: 93005; 87040 ×2; 85025; 80048; 36415; 82550; 85610; 80076; 83605; 84484; 83690; 84145; 71045; 96374; 99284; J0696; J7030; 81003; 81015; 87077; 87086; 87088; 87186

== ENCOUNTER 2018-12-26 13:42 | Emergency (ER) | payer OTHER, MEDICARE ==
[2018-12-26] MEDS ORDERED: MEPERIDINE HCL 25 MG/0.5 ML ONE ×3 (14:10→17:02)
[2018-12-26] MEDS ORDERED: NA CHLORIDE 0.9% 500 ML ONE ×2 (14:31→15:05)
[2018-12-26] MEDS ORDERED: ONDANSETRON 4 MG/2 ML VIAL ONE (14:31)
[2018-12-26] MEDS ORDERED: PROPOFOL 200 MG/20 ML VIAL IV ONE (14:31)
--- NOTE | 2018-12-26 15:31 | RAD REPORT ---
EXAM DESCRIPTION: Shoulder Right 2 View - 12/26/2018 2:26 pm CLINICAL HISTORY: Shoulder pain, decreased range of motion, history of dislocation COMPARISON: None. TECHNIQUE: Internal and external rotation views of the right shoulder were obtained. FINDINGS: No fracture of the proximal humerus identifiable. Scapula widening shows no dislocation. B ones are osteopenic. Advanced degenerative changes are present at the AC joint. The patient has a ch ronic AC joint separation. There are erosive changes to the undersurface of the acromion and clavicle indicating wear from the humeral head. There is significant widening of the usual acromial humeral j oint space on these images. Review of prior images show the patient has chronic rotator cuff tear wit h articulation of the humeral head along the undersurface of the acromion and clavicle. No abnormal s oft tissue calcifications seen. IMPRESSION: No fracture seen and no dislocation. Patient has chronic rotator cuff tear. Chronic articulation of the humeral head along the undersurfac e of the acromion and clavicle has caused significant erosion.
--- NOTE | 2018-12-26 16:44 | ER ---
Nurse's Notes [facility] Name: Julissa Courtney Age: 88 yrs Sex: Female : 1930 Arrival Date: 12/26/2018 Time: 13:45 Bed 4 Private MD: Diagnosis: Post-traumatic osteoarthritis, unspecified shoulder Presentation: 12/26 13:45 Presenting complaint: EMS states: She had a non-traumatic dislocation of her right la1 shoulder. it has happened before but usually goes back in. Transition of care: patient was not received from another setting of care. Onset of symptoms was December 26, 2018. Risk Assessment: Do you want to hurt yourself or someone else? Patient reports no desire to harm self or others. Initial Sepsis Screen: Does the patient meet any 2 criteria? No. Patient's initial sepsis screen is negative. Does the patient have a suspected source of infection? No. Patient's initial sepsis screen is negative. Care prior to arrival: Medication(s) given: fentanyl 100mcg IV initiated. 18 GA, in the left hand. 13:45 Method Of Arrival: EMS: [facility] la1 13:45 Acuity: MIKE 3 la1 Historical: - Allergies: 13:47 Sulfa (Sulfonamide Antibiotics); la1 13:47 tranqulizer (unknown); la1 - PMHx: 13:47 Arthritis; Dementia; Hypothyroidism; lymphedema; Thyroid problem; Ulcers; la1 - Immunization history:: Adult Immunizations up to date. - Social history:: Smoking status: unknown. - Ebola Screening: : No symptoms or risks identified at this time. - Family history:: not pertinent. Screenin:49 Abuse screen: Denies threats or abuse. Nutritional screening: No deficits noted. la1 Tuberculosis screening: No symptoms or risk factors identified. Fall Risk Fall in past 12 months (25 points). Secondary diagnosis (15 points) IV access (20 points). Ambulatory Aid- Crutches/Cane/Walker (15 pts). Gait- Weak (10 pts.). Mental Status- Overestimates/Forgets Limitations (15 pts.). Total Siddiqui Fall Scale indicates High Risk Score (45 or more points). Side Rails Up X 2 Family Present and informed to notify staff if the need to leave the bedside. Assessment: 13:48 General: Appears uncomfortable, Behavior is cooperative. Pain: Complains of pain in la1 anterior aspect of right shoulder and posterior aspect of right shoulder. Neuro: Level of Consciousness is awake, alert, obeys commands. Cardiovascular: Capillary refill < 3 seconds is brisk in bilateral fingers Patient's skin is warm and dry. Respiratory: Airway is patent Respiratory effort is even, unlabored, Respiratory pattern is regular, symmetrical. GI: No signs and/or symptoms were reported involving the gastrointestinal system. : No signs and/or symptoms were reported regarding the genitourinary system. Musculoskeletal: Circulation, motion, and sensation intact. Range of motion: limited in right shoulder Swelling present in anterior aspect of right shoulder and posterior aspect of right shoulder. 15:15 Reassessment: Patient appears in no apparent distress at this time. No changes from la1 previously documented assessment. Patient and/or family updated on plan of care and expected duration. Pain level reassessed. 16:39 Reassessment: Patient appears in no apparent distress at this time. No changes from la1 previously documented assessment. Patient and/or family updated on plan of care and expected duration. Pain level reassessed. 16:55 Reassessment: Pt C/o severe pain to right shoulder, not relieved by pain medicine. la1 17:37 Reassessment: ERP at bedside discussing POC. la1 17:52 Reassessment: Pt awaiting discussion with ERP after pain medication repeated/. la1 Vital Signs: 13:47 BP 174 / 96; Pulse 96; Resp 16; Temp 97.5; Pulse Ox 98% on R/A; Weight 45.36 kg; la1 15:34 BP 161 / 84; Pulse 66; Resp 16; Pulse Ox 98% on R/A; la1 16:40 BP 157 / 66; Pulse 86; Resp 16; Pulse Ox 98% on R/A; la1 17:53 BP 158 / 70; Pulse 72; Resp 16; Pulse Ox 97% on R/A; la1 ED Course: 13:45 Patient arrived in ED. la1 13:45 Sony Calderon MD is Attending Physician. rn 13:46 Triage completed. la1 13:48 Arm band placed on left wrist. la1 13:50 Chuck Candelaria RN is Primary Nurse. la1 13:50 Call light in reach. Side rails up X 1. vehicle monitor technician on. Pulse ox on. NIBP on. la1 13:50 Maintain EMS IV. Dressing intact. Good blood return noted. Site clean \T\ dry. Gauge \T\ lidia 3 site: 18-gauge in Left Hand. 13:50 Initial lab(s) drawn, by me, held in ED. Patient maintains SpO2 saturation greater than jp3 95% on room air. 13:54 Warm blanket given. Verbal reassurance given. jp3 14:28 XRAY Shoulder RIGHT 2 view In Process Unspecified. EDMS 14:36 Consent for conscious sedation explained by staff, explained by physician, signed by la1 guardian. 16:25 Shoulder immobilizer applied on right shoulder. dh3 18:19 No provider procedures requiring assistance completed. IV discontinued, intact, la1 bleeding controlled, No redness/swelling at site. Pressure dressing applied. Administered Medications: 13:57 Drug: Demerol 25 mg Route: IVP; Site: left hand; la1 14:29 Follow up: Response: No adverse reaction; Pain is decreased la1 14:30 Drug: NS 0.9% 500 ml Route: IV; Rate: bolus; Site: left hand; la1 16:40 Follow up: IV Status: Completed infusion la1 14:30 Drug: Zofran 2 mg Route: IVP; Site: left hand; la1 16:40 Follow up: Response: No adverse reaction la1 14:53 Drug: Demerol 25 mg Route: IVP; Site: left hand; la1 16:40 Follow up: Response: No adverse reaction; Pain is decreased la1 16:51 Drug: Demerol 25 mg Route: IVP; Site: left hand; la1 17:38 Follow up: Response: No adverse reaction; Pain is decreased la1 17:26 Drug: morphine 2 mg Route: IVP; Site: left hand; la1 17:38 Follow up: Response: No adverse reaction; Pain is decreased la1 17:26 Drug: [place] 5 mg-325 mg 1 tabs Route: PO; la1 17:38 Follow up: Response: No adverse reaction; Pain is decreased la1 Outcome: 16:43 Discharge ordered by rn 18:19 Discharged to home via wheelchair, with family. la1 18:19 Condition: stable 18:19 Discharge instructions given to patient, family, Instructed on discharge instructions, follow up and referral plans. medication usage, Demonstrated understanding of instructions, follow-up care, medications, Prescriptions given X 1. 18:20 Patient left the ED. la1 Signatures: Dispatcher [employer] EDMS Sony Calderon MD MD rn Attema, Lee, RN RN la1 Abida Jara 3 Valdo Jeffers 3
--- NOTE | 2018-12-26 16:44 | EDPHYS ---
Physician Documentation [facility] Name: Julissa Courtney Age: 88 yrs Sex: Female : 1930 Arrival Date: 12/26/2018 Time: 13:45 Bed 4 Private MD: ED Physician Sony Calderon HPI: 12/26 16:10 This 88 yrs old Female presents to ER via EMS with complaints of Shoulder rn Injury. 16:10 The patient or guardian complains of pain. right shoulder. Onset: The symptoms/episode rn began/occurred just prior to arrival. Modifying factors: the symptoms are alleviated by remaining still, The symptoms are aggravated by movement, rotation of arm. Associated signs and symptoms: The patient has no apparent associated signs or symptoms, Pertinent negatives: chest pain, tingling. Severity of symptoms: At their worst the symptoms were moderate, in the emergency department the symptoms are unchanged. The patient has experienced similar episodes in the past. The patient has not recently seen a physician. Family reports shoulder pain after reading newspaper, no fall or direct trauma. No chest pain/sob. Has had recurrent shoulder dislocations as well as chronic arthritis/shoulder separation/rotator cuff injury. . Historical: - Allergies: 13:47 Sulfa (Sulfonamide Antibiotics); la1 13:47 tranqulizer (unknown); la1 - PMHx: 13:47 Arthritis; Dementia; Hypothyroidism; lymphedema; Thyroid problem; Ulcers; la1 - Immunization history:: Adult Immunizations up to date. - Social history:: Smoking status: unknown. - Ebola Screening: : No symptoms or risks identified at this time. - Family history:: not pertinent. ROS: 16:10 Constitutional: Negative for fever, chills, and weight loss, Eyes: Negative for injury, rn pain, redness, and discharge, Neck: Negative for injury, pain, and swelling, Cardiovascular: Negative for chest pain, palpitations, and edema, Respiratory: Negative for shortness of breath, cough, wheezing, and pleuritic chest pain, Abdomen/GI: Negative for abdominal pain, nausea, vomiting, diarrhea, and constipation, Back: Negative for injury and pain, MS/Extremity: + right shoulder pain, negative for injury Skin: Negative for injury, rash, and discoloration, Neuro: Negative for headache, weakness, numbness, tingling, and seizure. Exam: 16:10 Constitutional: This is a well developed, well nourished patient who is awake, alert, rn holding arm in passive flexion and seems in pain. Neck: Trachea midline, no thyromegaly or masses palpated, and no cervical lymphadenopathy. Supple, full range of motion without nuchal rigidity, or vertebral point tenderness. No Meningismus. Skin: Warm, dry, no cellulitis MS/ Extremity: Pulses equal, no cyanosis. + painful rotation and movement of right arm at right shoulder. No gross deformity. Vital Signs: 13:47 BP 174 / 96; Pulse 96; Resp 16; Temp 97.5; Pulse Ox 98% on R/A; Weight 45.36 kg; la1 15:34 BP 161 / 84; Pulse 66; Resp 16; Pulse Ox 98% on R/A; la1 16:40 BP 157 / 66; Pulse 86; Resp 16; Pulse Ox 98% on R/A; la1 17:53 BP 158 / 70; Pulse 72; Resp 16; Pulse Ox 97% on R/A; la1 MDM: 13:45 Patient medically screened. rn 16:40 Differential diagnosis: Anterior dislocation with fracture, Anterior dislocation rn without fracture, DJD, tendonitis. Data reviewed: vital signs, nurses notes, radiologic studies, plain films, and as a result, I will discharge patient. Counseling: I had a detailed discussion with the patient and/or guardian regarding: the historical points, exam findings, and any diagnostic results supporting the discharge/admit diagnosis, radiology results, the need for outpatient follow up, to return to the emergency department if symptoms worsen or persist or if there are any questions or concerns that arise at home. Response to treatment: the patient's symptoms have markedly improved after treatment, and as a result, I will discharge patient. Special discussion: I discussed with the patient/guardian in detail that at this point there is no indication for admission to the hospital. It is understood, however, that if the symptoms persist or worsen the patient needs to return immediately for re-evaluation. ED course: Xray shoulder does not show dislocation or acute finding, pain improved with demerol adn increased ROM. Daughter requesting repeat dose of demerol for transport home and patient placed in shoulder immobilizer. . 12/26 13:46 Order name: XRAY Shoulder RIGHT 2 view; Complete Time: 15:36 rn 12/26 13:46 Order name: IV Start; Complete Time: 13:50 rn 12/26 16:10 Order name: Shoulder Immobilizer; Complete Time: 16:30 rn Administered Medications: 13:57 Drug: Demerol 25 mg Route: IVP; Site: left hand; la1 14:29 Follow up: Response: No adverse reaction; Pain is decreased la1 14:30 Drug: NS 0.9% 500 ml Route: IV; Rate: bolus; Site: left hand; la1 16:40 Follow up: IV Status: Completed infusion la1 14:30 Drug: Zofran 2 mg Route: IVP; Site: left hand; la1 16:40 Follow up: Response: No adverse reaction la1 14:53 Drug: Demerol 25 mg Route: IVP; Site: left hand; la1 16:40 Follow up: Response: No adverse reaction; Pain is decreased la1 16:51 Drug: Demerol 25 mg Route: IVP; Site: left hand; la1 17:38 Follow up: Response: No adverse reaction; Pain is decreased la1 17:26 Drug: morphine 2 mg Route: IVP; Site: left hand; la1 17:38 Follow up: Response: No adverse reaction; Pain is decreased la1 17:26 Drug: [place] 5 mg-325 mg 1 tabs Route: PO; la1 17:38 Follow up: Response: No adverse reaction; Pain is decreased la1 Disposition: 12/26/18 16:43 Discharged to Home. Impression: Post-traumatic osteoarthritis, unspecified shoulder. - Condition is Stable. - Discharge Instructions: How to Use a Shoulder Immobilizer, Shoulder Pain. - Prescriptions for Tylenol- Codeine #3 300-30 mg Oral Tablet - take 1 tablet by ORAL route every 6 hours As needed; 15 tablet. - Medication Reconciliation Form, Thank You Letter, Antibiotic Education, Prescription Opioid Use form. - Follow up: Private Physician; When: As needed; Reason: Recheck today's complaints, Re-evaluation by your physician. - Problem is chronic. - Symptoms have improved. Signatures: Dispatcher [employer] EDMS Sony Calderon MD MD rn Attema, Lee, RN RN la1 Corrections: (The following items were deleted from the chart) 18:20 16:43 12/26/2018 16:43 Discharged to Home. Impression: Post-traumatic osteoarthritis, la1 unspecified shoulder. Condition is Stable. Forms are Medication Reconciliation Form, Thank You Letter, Antibiotic Education, Prescription Opioid Use. Follow up: Private Physician; When: As needed; Reason: Recheck today's complaints, Re-evaluation by your physician. Problem is chronic. Symptoms have improved. rn
[2018-12-26] MEDS ORDERED: MORPHINE 2 MG/ML SYR ONE (17:35)
[2018-12-26] MEDS ORDERED: HYDROCODONE/APAP 5/325 MG TAB ONE (17:38)
[2018-12-26 18:29] VITALS: TEMP 97.5
[2018-12-26 18:31] VITALS: BP 158/70; O2SAT 97
== END 2018-12-26 18:20 | disposition home or self-care (01) ==
LOC: ER 13:42
DX: M19.111 Post-traumatic osteoarthritis, right shoulder (principal); F03.90 Unspecified dementia, unspecified severity, without behavioral disturbance, psychotic disturbance, mood disturbance, and anxiety; Z88.2 Allergy status to sulfonamides; Z88.8 Allergy status to other drugs, medicaments and biological substances
CPT/HCPCS: 96361; 73030; 96375; 96374; 99285; J2270; J2175 ×3; J2405; J2704

== ENCOUNTER 2019-01-31 11:09 | Emergency (ER) | payer OTHER, MEDICARE ==
--- NOTE | 2019-01-31 12:03 | RAD REPORT ---
EXAM DESCRIPTION: Shoulder Right 2 View - 01/31/2019 11:53 am CLINICAL HISTORY: Fall, right-sided shoulder and scapula pain COMPARISON: December 26 TECHNIQUE: Internal and external rotation views of the right shoulder were obtained. FINDINGS: An acute fracture is not identified. Dislocation is not suspected. Patient has significan t erosive changes to the undersurface of the acromion and clavicle at the AC joint. This matches the prior study. Soft tissue calcifications near the clavicle are unchanged. Significant degenerative yordan nge and remodeling of the articular surface of the humeral head is seen. AVN is not excluded. IMPRESSION: Substantial chronic degenerative changes to the humeral head articular surface with eros swtea changes along the undersurface of the clavicle and acromion. No acute fracture or dislocation seen. The shoulder findings are stable from December 26.
--- NOTE | 2019-01-31 13:00 | RAD REPORT ---
EXAM DESCRIPTION: RAD - Tib Fib Left - 01/31/2019 12:42 pm CLINICAL HISTORY: PAIN COMPARISON: Tibia Fibula Left dated 07/05/2015 FINDINGS: Prominent edema pattern is seen in the leg. Degenerative changes are noted involving the m edial compartment of the knee. Acute fracture or dislocation is not seen.
--- NOTE | 2019-01-31 13:07 | EDPHYS ---
Physician Documentation [facility] Name: Julissa Courtney Age: 88 yrs Sex: Female : 1930 Arrival Date: 01/31/2019 Time: 11:11 Bed 7 Private MD: Antonietta Murray C ED Physician Leighton Campbell HPI: 01/31 11:29 This 88 yrs old Female presents to ER via Wheelchair with complaints of Fall jr8 Injury. 11:29 Details of fall: The patient fell from an upright position, while walking. Onset: The jr8 symptoms/episode began/occurred acutely, last night, at 00:00. Associated injuries: The patient sustained right shoulder and arm. Severity of symptoms: At their worst the symptoms were mild, in the emergency department the symptoms are unchanged. Slip/fall on wet surface in bathroom last night at 0000, -LOC, denies striking head, c/o right shoulder pain. Historical: - Allergies: 11:30 Sulfa (Sulfonamide Antibiotics); ss 11:30 tranqulizer (unknown); ss - PMHx: 11:30 Arthritis; Dementia; Hypothyroidism; lymphedema; Thyroid problem; Ulcers; ss - Immunization history:: Adult Immunizations up to date. - Social history:: Smoking status: Patient/guardian denies using tobacco. - Ebola Screening: : Patient denies exposure to infectious person Patient denies travel to an Ebola-affected area in the 21 days before illness onset. ROS: 11:29 Constitutional: Negative for fever, chills, and weight loss, Neck: Negative for injury, jr8 pain, and swelling, Cardiovascular: Negative for chest pain, palpitations, and edema, Respiratory: Negative for shortness of breath, cough, wheezing, and pleuritic chest pain, Abdomen/GI: Negative for abdominal pain, nausea, vomiting, diarrhea, and constipation, Neuro: Negative for headache, weakness, numbness, tingling, and seizure. 11:29 Skin: Positive for ecchymosis, skin tear. Exam: 11:29 Constitutional: This is a well developed, well nourished patient who is awake, alert, jr8 and in no acute distress. Head/Face: Normocephalic, atraumatic. Neck: Trachea midline, no thyromegaly or masses palpated, and no cervical lymphadenopathy. Supple, full range of motion without nuchal rigidity, or vertebral point tenderness. No Meningismus. Cardiovascular: Regular rate and rhythm with a normal S1 and S2. No gallops, murmurs, or rubs. Normal PMI, no JVD. No pulse deficits. Respiratory: Lungs have equal breath sounds bilaterally, clear to auscultation and percussion. No rales, rhonchi or wheezes noted. No increased work of breathing, no retractions or nasal flaring. Abdomen/GI: Soft, non-tender, with normal bowel sounds. No distension or tympany. No guarding or rebound. No evidence of tenderness throughout. Back: No spinal tenderness. No costovertebral tenderness. Full range of motion. Neuro: Awake and alert, GCS 15, oriented to person, place, time, and situation. Cranial nerves II-XII grossly intact. Motor strength 5/5 in all extremities. Sensory grossly intact. Cerebellar exam normal. Normal gait. 11:29 Musculoskeletal/extremity: Extremities: noted in the right shoulder: decreased ROM, pain, tenderness, noted in the right forearm: skin tear, noted in the left lower leg: contusion. 11:29 Skin: Appearance: normal except for affected area. Vital Signs: 11:30 BP 138 / 81; Pulse 91; Resp 19; Temp 97.3(TE); Pulse Ox 98% on R/A; ss 11:34 Weight 45 kg; Height 5 ft. 6 in. (167.64 cm); sv 12:00 BP 135 / 76; Pulse 78; Resp 16; Temp 97.8(O); Pulse Ox 97% ; sv 12:44 BP 146 / 80; Pulse 75; Resp 16; Pulse Ox 99% ; sv 11:34 Body Mass Index 16.01 (45.00 kg, 167.64 cm) sv Shawna Coma Score: 11:34 Eye Response: spontaneous(4). Verbal Response: confused(4). Motor Response: obeys sv commands(6). Total: 14. 12:00 Eye Response: spontaneous(4). Verbal Response: confused(4). Motor Response: obeys sv commands(6). Total: 14. Trauma Score (Adult): 11:34 Eye Response: spontaneous(1); Verbal Response: confused(1); Motor Response: obeys sv commands(2); Systolic BP: > 89 mm Hg(4); Respiratory Rate: 10 to 29 per min(4); Lostant Score: 14; Trauma Score: 12 12:00 Eye Response: spontaneous(1); Verbal Response: confused(1); Motor Response: obeys sv commands(2); Systolic BP: > 89 mm Hg(4); Respiratory Rate: 10 to 29 per min(4); Shawna Score: 14; Trauma Score: 12 MDM: 11:17 Patient medically screened. jr8 13:06 Data reviewed: vital signs, nurses notes, radiologic studies, plain films, and as a jr8 result, I will discharge patient. Data interpreted: Pulse oximetry: on room air is 99 %. Interpretation: normal. Counseling: I had a detailed discussion with the patient and/or guardian regarding: the historical points, exam findings, and any diagnostic results supporting the discharge/admit diagnosis, radiology results, the need for outpatient follow up, a family practitioner, to return to the emergency department if symptoms worsen or persist or if there are any questions or concerns that arise at home. 01/31 11:29 Order name: XRAY Shoulder RIGHT 2 view; Complete Time: 12:11 jr8 01/31 11:54 Order name: XRAY Sacrum And Coccyx; Complete Time: 13:09 jr8 01/31 11:54 Order name: XRAY Tib Fib LEFT; Complete Time: 13:04 jr8 Administered Medications: No medications were administered Disposition: 16:43 Co-signature as Attending Physician, Leighton Campbell MD I agree with the assessment and kdr plan of care. Disposition: 01/31/19 13:06 Discharged to Home. Impression: Contusion of left lower leg, Contusion of right shoulder. - Condition is Stable. - Discharge Instructions: Contusion, Shoulder Pain, Tailbone Injury. - Medication Reconciliation Form, Thank You Letter, Antibiotic Education, Prescription Opioid Use form. - Follow up: Antonietta Murray MD; When: 1 week; Reason: Recheck today's complaints, Continuance of care, Re-evaluation by your physician. - Problem is new. - Symptoms have improved. Signatures: Dispatcher [employer] EDMS Edgardo Chapman RN RN sg Rittger, Kevin, MD MD kdr Smirch, Shelby, RN RN ss Roszak, Josh, PA PA jr8 Corrections: (The following items were deleted from the chart) 13:27 13:06 01/31/2019 13:06 Discharged to Home. Impression: Contusion of left lower leg; sg Contusion of right shoulder. Condition is Stable. Forms are Medication Reconciliation Form, Thank You Letter, Antibiotic Education, Prescription Opioid Use. Follow up: Antonietta Murray; When: 1 week; Reason: Recheck today's complaints, Continuance of care, Re-evaluation by your physician. Problem is new. Symptoms have improved. jr8
--- NOTE | 2019-01-31 13:07 | ER ---
Nurse's Notes [facility] Name: Julissa Courtney Age: 88 yrs Sex: Female : 1930 Arrival Date: 01/31/2019 Time: 11:11 Bed 7 Private MD: Antonietta Murray C Diagnosis: Contusion of left lower leg;Contusion of right shoulder Presentation: 01/31 11:28 Presenting complaint: caregiver reports that patient fell from unknown position, ss possibly standing in the restroom last night at 0000. Pt c/o pain to sacral area and R shoulder. Skin tear noted to R forearm. Transition of care: patient was not received from another setting of care. Onset of symptoms was January 30, 2019. Risk Assessment: Do you want to hurt yourself or someone else? Patient reports no desire to harm self or others. Initial Sepsis Screen: Does the patient meet any 2 criteria? Does the patient have a suspected source of infection? No. Patient's initial sepsis screen is negative. Care prior to arrival: None. 11:28 Method Of Arrival: Wheelchair ss 11:28 Acuity: MIKE 3 ss Historical: - Allergies: 11:30 Sulfa (Sulfonamide Antibiotics); ss 11:30 tranqulizer (unknown); ss - PMHx: 11:30 Arthritis; Dementia; Hypothyroidism; lymphedema; Thyroid problem; Ulcers; ss - Immunization history:: Adult Immunizations up to date. - Social history:: Smoking status: Patient/guardian denies using tobacco. - Ebola Screening: : Patient denies exposure to infectious person Patient denies travel to an Ebola-affected area in the 21 days before illness onset. Screenin:35 Abuse screen: Denies threats or abuse. Denies injuries from another. Nutritional sv screening: No deficits noted. Tuberculosis screening: No symptoms or risk factors identified. Fall Risk Fall in past 12 months (25 points). Secondary diagnosis (15 points) dementia, No IV (0 pts). Ambulatory Aid- None/Bed Rest/Nurse Assist (0 pts). Gait- Normal/Bed Rest/Wheelchair (0 pts) Mental Status- Oriented to own ability (0 pts). Total Siddiqui Fall Scale indicates Low Risk Score (25-44 pts). Fall prevention measures have been instituted. Side Rails Up X 2 Placed close to Nursing Station Frequent Obs/Assesments occuring Family Present and informed to notify staff if they need to leave bedside As available Patient and Family Educated on Fall Prevention Program and strategies. Assessment: 11:40 General: Appears in no apparent distress. uncomfortable, Behavior is cooperative, sv appropriate for age, anxious. Pain: Complains of pain in right shoulder and right hip Pain currently is 3 out of 10 on a pain scale. Neuro: Level of Consciousness is awake, alert, obeys commands, Oriented to person, Moves all extremities. Gait is steady, Speech is normal. Respiratory: Respiratory effort is even, unlabored, Respiratory pattern is regular, symmetrical. Derm: Skin is normal, skin tear to the right forearm that has been dressed. Musculoskeletal: Swelling present in right leg and left leg. 12:45 Reassessment: Patient appears in no apparent distress at this time. No changes from sv previously documented assessment. Patient and/or family updated on plan of care and expected duration. Pain level reassessed. 13:25 Reassessment: Patient appears in no apparent distress at this time. No changes from sv previously documented assessment. Patient and/or family updated on plan of care and expected duration. Pain level reassessed. Vital Signs: 11:30 BP 138 / 81; Pulse 91; Resp 19; Temp 97.3(TE); Pulse Ox 98% on R/A; ss 11:34 Weight 45 kg; Height 5 ft. 6 in. (167.64 cm); sv 12:00 BP 135 / 76; Pulse 78; Resp 16; Temp 97.8(O); Pulse Ox 97% ; sv 12:44 BP 146 / 80; Pulse 75; Resp 16; Pulse Ox 99% ; sv 11:34 Body Mass Index 16.01 (45.00 kg, 167.64 cm) sv Yawkey Coma Score: 11:34 Eye Response: spontaneous(4). Verbal Response: confused(4). Motor Response: obeys sv commands(6). Total: 14. 12:00 Eye Response: spontaneous(4). Verbal Response: confused(4). Motor Response: obeys sv commands(6). Total: 14. Trauma Score (Adult): 11:34 Eye Response: spontaneous(1); Verbal Response: confused(1); Motor Response: obeys sv commands(2); Systolic BP: > 89 mm Hg(4); Respiratory Rate: 10 to 29 per min(4); Shawna Score: 14; Trauma Score: 12 12:00 Eye Response: spontaneous(1); Verbal Response: confused(1); Motor Response: obeys sv commands(2); Systolic BP: > 89 mm Hg(4); Respiratory Rate: 10 to 29 per min(4); Yawkey Score: 14; Trauma Score: 12 ED Course: 11:11 Patient arrived in ED. rg4 11:12 Antonietta Murray MD is Private Physician. rg4 11:17 Fly Moya PA is PHCP. jr8 11:17 Leighton Campbell MD is Attending Physician. jr8 11:25 Ngozi Balderrama RN is Primary Nurse. sv 11:29 Triage completed. ss 11:30 Arm band placed on right wrist. ss 11:34 Patient has correct armband on for positive identification. Bed in low position. Call sv light in reach. Side rails up X 1. Adult w/ patient. Pulse ox on. NIBP on. Door closed. Head of bed elevated. 11:38 XRAY Shoulder RIGHT 2 view In Process Unspecified. EDMS 12:43 X-ray completed. Portable x-ray completed in exam room. Patient tolerated procedure sw well. 12:43 XRAY Sacrum And Coccyx In Process Unspecified. EDMS 12:43 XRAY Tib Fib LEFT In Process Unspecified. EDMS 13:06 Antonietta Murray MD is Referral Physician. jr8 13:27 No provider procedures requiring assistance completed. Patient did not have IV access sv during this emergency room visit. Administered Medications: No medications were administered Intake: 11:34 PO: 0ml; Total: 0ml. sv 12:00 PO: 0ml; Total: 0ml. sv Output: 11:34 Urine: 0ml; Total: 0ml. sv 12:00 Urine: 0ml; Total: 0ml. sv Outcome: 13:06 Discharge ordered by . jr8 13:27 Patient left the ED. sg 13:27 Discharged to home via wheelchair, with caregiver sv 13:27 Condition: stable 13:27 Discharge instructions given to terminal supervisor, Instructed on discharge instructions, follow up and referral plans. Demonstrated understanding of instructions, follow-up care. Signatures: Dispatcher [employer] Ngozi Scott RN RN sv Gay, Steven, RN RN sg Smirch, Nicci, RN RN ss Fly Moya PA PA jr8 Rebekah Kumar Rubi 4
--- NOTE | 2019-01-31 13:07 | RAD REPORT ---
EXAM DESCRIPTION: RAD - Sacrum And Coccyx - 01/31/2019 12:56 pm CLINICAL HISTORY: Fall, sacral pain COMPARISON: CT imaging November 2017 pelvis imaging November 2018 TECHNIQUE: Lateral sacrum/coccyx, cephalic 15 degree and caudal 10 degree images obtained. FINDINGS: No acute fracture of the sacrum or coccyx identifiable. Positioning of the sacrum and cocc ygeal segments similar to the 2018 CT comparison. SI joint degenerative changes are present. No sacra l ala fracture seen though overlying bowel content is somewhat limiting. Patient has chronic fracture change remodeling at the right-side pubic symphysis. Patient has incompl etely healed fracture of the left inferior pubic ramus. This is a change from the November 2018 imaging. S clerotic changes are present around the left acetabulum. There is subtle cortical disruption suspecte d. IMPRESSION: No fracture of the sacrum or coccyx confirmed. Fracture at the left acetabulum and left inferior pubic ramus noted. These are suspected to be subacu te dating back to November 2018 where the fracture changes were radiographically occult
[2019-01-31 13:47] VITALS: TEMP 97.8
[2019-01-31 13:48] VITALS: BP 146/80; O2SAT 99
== END 2019-01-31 13:27 | disposition home or self-care (01) ==
LOC: ER 11:09
DX: S40.011A Contusion of right shoulder, initial encounter (principal); S80.12XA Contusion of left lower leg, initial encounter; W01.198A Fall on same level from slipping, tripping and stumbling with subsequent striking against other object, initial encounter; Y93.01 Activity, walking, marching and hiking; Y92.002 Bathroom of unspecified non-institutional (private) residence as the place of occurrence of the external cause; Z88.2 Allergy status to sulfonamides; Z88.8 Allergy status to other drugs, medicaments and biological substances; F03.90 Unspecified dementia, unspecified severity, without behavioral disturbance, psychotic disturbance, mood disturbance, and anxiety
CPT/HCPCS: 72220; 99283

== ENCOUNTER 2019-02-04 19:57 | Emergency (ER) | payer OTHER, MEDICARE ==
[2019-02-04] MEDS ORDERED: CODEINE 30MG/APAP 300MG TAB ONE (21:03)
--- NOTE | 2019-02-04 22:18 | RAD REPORT ---
EXAM DESCRIPTION: RAD - Shoulder Right 2 View - 02/04/2019 9:10 pm CLINICAL HISTORY: Right shoulder pain FINDINGS: No acute fracture or dislocation Osteoporosis Marked narrowing of the glenohumeral joint. Joint effusion is suspected. Old fracture of acromion with chronic widening of the AC joint. An old coracoid scapular fracture jean-pierre pected. 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
--- NOTE | 2019-02-04 22:20 | RAD REPORT ---
EXAM DESCRIPTION: US - UPPER EXTREMITY VENOUS UNILATE - 02/04/2019 9:41 pm CLINICAL HISTORY: Right upper extremity COMPARISON: None. FINDINGS: Right internal jugular, right subclavian, right brachial, right basilic, and right cephali c veins demonstrate phasic signal and are compressible. None evaluation the right axillary vein secondary to difficulty with patient positioning. IMPRESSION: No evidence of thrombus involving the right upper extremity Non evaluation right axillary vein
--- NOTE | 2019-02-04 22:44 | ER ---
Nurse's Notes [facility] Name: Julissa Courtney Age: 88 yrs Sex: Female : 1930 Arrival Date: 02/04/2019 Time: 19:59 Bed 4 Private MD: Diagnosis: Pain in right shoulder Presentation: 02/04 19:59 Presenting complaint: EMS states: caregiver call us because the patient is complaining rv of severe pain in right shoulder and tailbone. she was seen a week ago for possible fall injury. Transition of care: patient was not received from another setting of care. Onset of symptoms was February 04, 2019 at 19:00. Risk Assessment: Do you want to hurt yourself or someone else? Patient reports no desire to harm self or others. Initial Sepsis Screen: Does the patient meet any 2 criteria? No. Patient's initial sepsis screen is negative. Does the patient have a suspected source of infection? No. Patient's initial sepsis screen is negative. Care prior to arrival: None. 19:59 Method Of Arrival: EMS: [facility] rv 19:59 Acuity: MIKE 3 rv Historical: - Allergies: 20:22 Sulfa (Sulfonamide Antibiotics); rv 20:22 tranqulizer (unknown); rv - Home Meds: 20:22 aspirin 81 mg Oral TbEC [Active]; B-12 DOTS Oral [Active]; Fosamax 70 mg Oral tab 1 tab rv once wkly [Active]; Iron CR Oral [Active]; levothyroxine oral [Active]; Potassium Chloride Oral [Active]; Vitamin D3 Oral [Active]; - PMHx: 20:22 Arthritis; Dementia; Hypothyroidism; lymphedema; Thyroid problem; Ulcers; rv - PSHx: 20:22 Unable to obtain; rv - Immunization history:: Adult Immunizations unknown. - Social history:: Smoking status: . - Ebola Screening: : No symptoms or risks identified at this time. Screenin:07 Abuse screen: Denies threats or abuse. Denies injuries from another. Nutritional rv screening: No deficits noted. Tuberculosis screening: No symptoms or risk factors identified. Fall Risk Fall in past 12 months (25 points). Secondary diagnosis (15 points) dementia, impaired mobility, No IV (0 pts). Ambulatory Aid- None/Bed Rest/Nurse Assist (0 pts). Gait- Weak (10 pts.). Mental Status- Overestimates/Forgets Limitations (15 pts.). Assessment: 20:05 General: Appears in no apparent distress. comfortable, Behavior is calm, cooperative. rv Pain: Complains of pain in right shoulder. Neuro: Level of Consciousness is awake, alert, obeys commands, Oriented to person. Cardiovascular: Patient's skin is warm and dry. Respiratory: Airway is patent. GI: No signs and/or symptoms were reported involving the gastrointestinal system. : No signs and/or symptoms were reported regarding the genitourinary system. EENT: No signs and/or symptoms were reported regarding the EENT system. Derm: Skin is intact. Musculoskeletal: Range of motion: limited in right shoulder Reports pain in right shoulder. Vital Signs: 20:03 BP 158 / 78; Pulse 81; Resp 16; Temp 97.6; Pulse Ox 98% on R/A; Weight 68.04 kg; rv 20:03 Pain 10/10; rv 20:30 BP 160 / 82; Pulse 81; Resp 17; Pulse Ox 97% on R/A; rv 21:00 BP 147 / 97; Pulse 80; Resp 18; Pulse Ox 98% ; rv 22:00 BP 160 / 72; Pulse 68; Resp 16; Pulse Ox 98% on R/A; rv 22:30 BP 145 / 76; Pulse 71; Resp 17; Temp 98(O); Pulse Ox 98% on R/A; rv ED Course: 19:59 Patient arrived in ED. rv 20:00 Patient placed in the treatment room, on a stretcher, on pulse oximetry, Patient rv notified of wait time. 20:03 Triage completed. rv 20:07 Patient has correct armband on for positive identification. Placed in gown. Bed in low rv position. Call light in reach. Side rails up X2. Pulse ox on. NIBP on. Warm blanket given. Pillow given. 20:09 Leighton Campbell MD is Attending Physician. kdr 20:21 Jose F Aguilera, BRADEN is Primary Nurse. rv 21:05 Shoulder Right (2 View) XRAY In Process Unspecified. EDMS 21:39 UPPER EXTREMITY VENOUS UNILATE In Process Unspecified. EDMS 23:04 No provider procedures requiring assistance completed. Patient did not have IV access rv during this emergency room visit. Administered Medications: 20:58 Drug: Tylenol #3 (300 mg-30 mg) 1 tablet Route: PO; rv 23:04 Follow up: Response: Pain is decreased rv Outcome: 22:43 Discharge ordered by . kdr 23:04 Discharged to home via wheelchair, with family. rv 23:04 Condition: good 23:04 Discharge instructions given to family, Instructed on discharge instructions, follow up and referral plans. medication usage, Demonstrated understanding of instructions, follow-up care, medications, Prescriptions given X 1. 23:05 Patient left the ED. rv Signatures: Dispatcher [employer] EDMS Leighton Campbell MD MD kdr Jose F Aguilera RN RN rv
--- NOTE | 2019-02-04 22:45 | EDPHYS ---
Physician Documentation [facility] Name: Julissa Courtney Age: 88 yrs Sex: Female : 1930 Arrival Date: 02/04/2019 Time: 19:59 Bed 4 Private MD: ED Physician Leighton Campbell HPI: 02/04 20:46 This 88 yrs old Female presents to ER via EMS with complaints of persistent kdr right shoulder pain and right arm/hand swelling. 20:46 The patient was seen here a few days ago for pain in her right shoulder and coccyx. She kdr had appropriate x-rays done at that time which did not show any acute fracture but she did have considerable degenerative changes. Onset: The symptoms/episode began/occurred suddenly, 1 week(s) ago. Severity of symptoms: At their worst the symptoms were mild in the emergency department the symptoms are unchanged. The patient has not experienced similar symptoms in the past. The patient has been recently seen at the [facility] Emergency Department, last week. Historical: - Allergies: 20:22 Sulfa (Sulfonamide Antibiotics); rv 20:22 tranqulizer (unknown); rv - Home Meds: 20:22 aspirin 81 mg Oral TbEC [Active]; B-12 DOTS Oral [Active]; Fosamax 70 mg Oral tab 1 tab rv once wkly [Active]; Iron CR Oral [Active]; levothyroxine oral [Active]; Potassium Chloride Oral [Active]; Vitamin D3 Oral [Active]; - PMHx: 20:22 Arthritis; Dementia; Hypothyroidism; lymphedema; Thyroid problem; Ulcers; rv - PSHx: 20:22 Unable to obtain; rv - Immunization history:: Adult Immunizations unknown. - Social history:: Smoking status: . - Ebola Screening: : No symptoms or risks identified at this time. ROS: 20:48 Constitutional: Negative for fever, chills, and weight loss, Eyes: Negative for injury, kdr pain, redness, and discharge, Neck: Negative for injury, pain, and swelling, Cardiovascular: Negative for chest pain, palpitations, and edema, Respiratory: Negative for shortness of breath, cough, wheezing, and pleuritic chest pain, Abdomen/GI: Negative for abdominal pain, nausea, vomiting, diarrhea, and constipation, Back: Negative for injury and pain, : Negative for injury, bleeding, discharge, and swelling, Skin: Negative for injury, rash, and discoloration, Neuro: Negative for headache, weakness, numbness, tingling, and seizure activity. Psych: Negative for depression, anxiety, suicide ideation, homicidal ideation, and hallucinations, Allergy/Immunology: Negative for hives, rash, and allergies, Endocrine: Negative for neck swelling, polydipsia, polyuria, polyphagia, and marked weight changes, Hematologic/Lymphatic: Negative for swollen nodes, abnormal bleeding, and unusual bruising. 20:48 MS/extremity: Positive for decreased range of motion, pain, swelling, of the anterior aspect of right shoulder and posterior aspect of right shoulder. Exam: 20:48 Constitutional: This is a well developed, well nourished patient who is awake, alert, kdr and in no acute distress. Head/Face: Normocephalic, atraumatic. Eyes: Pupils equal round and reactive to light, extra-ocular motions intact. Lids and lashes normal. Conjunctiva and sclera are non-icteric and not injected. Cornea within normal limits. Periorbital areas with no swelling, redness, or edema. Neck: Trachea midline, no thyromegaly or masses palpated, and no cervical lymphadenopathy. Supple, full range of motion without nuchal rigidity, or vertebral point tenderness. No Meningismus. Chest/axilla: Normal chest wall appearance and motion. Nontender with no deformity. No lesions are appreciated. Cardiovascular: Regular rate and rhythm with a normal S1 and S2. No gallops, murmurs, or rubs. Normal PMI, no JVD. No pulse deficits. Respiratory: Lungs have equal breath sounds bilaterally, clear to auscultation and percussion. No rales, rhonchi or wheezes noted. No increased work of breathing, no retractions or nasal flaring. Abdomen/GI: Soft, non-tender, with normal bowel sounds. No distension or tympany. No guarding or rebound. No evidence of tenderness throughout. 20:48 Musculoskeletal/extremity: Extremities: grossly normal except: noted in the anterior aspect of right shoulder and posterior aspect of right shoulder: decreased ROM, pain, swelling, tenderness. Vital Signs: 20:03 BP 158 / 78; Pulse 81; Resp 16; Temp 97.6; Pulse Ox 98% on R/A; Weight 68.04 kg; rv 20:03 Pain 10/10; rv 20:30 BP 160 / 82; Pulse 81; Resp 17; Pulse Ox 97% on R/A; rv 21:00 BP 147 / 97; Pulse 80; Resp 18; Pulse Ox 98% ; rv 22:00 BP 160 / 72; Pulse 68; Resp 16; Pulse Ox 98% on R/A; rv 22:30 BP 145 / 76; Pulse 71; Resp 17; Temp 98(O); Pulse Ox 98% on R/A; rv MDM: 21:46 Data reviewed: vital signs, nurses notes, radiologic studies, plain films, No change kdr from prior exam. Counseling: I had a detailed discussion with the patient and/or guardian regarding: the historical points, exam findings, and any diagnostic results supporting the discharge/admit diagnosis, radiology results, the need for outpatient follow up. 22:43 Patient medically screened. kdr 02/04 20:43 Order name: Shoulder Right (2 View) XRAY; Complete Time: 22:45 kdr 02/04 21:21 Order name: UPPER EXTREMITY VENOUS UNILATE; Complete Time: 22:45 EDMS Administered Medications: 20:58 Drug: Tylenol #3 (300 mg-30 mg) 1 tablet Route: PO; rv 23:04 Follow up: Response: Pain is decreased rv Disposition: 02/04/19 22:43 Discharged to Home. Impression: Pain in right shoulder. - Condition is Stable. - Discharge Instructions: Joint Pain, Arthritis, Musculoskeletal Pain, Shoulder Pain, [id number]. - Prescriptions for Tylenol- Codeine #3 300-30 mg Oral Tablet - take 1 tablet by ORAL route every 6 hours As needed; 15 tablet. - Medication Reconciliation Form, Thank You Letter form. - Follow up: Private Physician; When: 2 - 3 days; Reason: If symptoms return, Further diagnostic work-up, Recheck today's complaints, Continuance of care, Re-evaluation by your physician. - Problem is an ongoing problem. - Symptoms have improved. Signatures: Dispatcher [employer] EDMS Leighton Campbell MD MD kdr Vicente, Ronaldo, RN RN rv Corrections: (The following items were deleted from the chart) 21:21 20:44 Extremity Venous Uni Ltd+[id number] ordered. EDSD EDMS 23:05 22:43 02/04/2019 22:43 Discharged to Home. Impression: Pain in right shoulder. rv Condition is Stable. Forms are Medication Reconciliation Form, Thank You Letter, Antibiotic Education, Prescription Opioid Use. Follow up: Private Physician; When: 2 - 3 days; Reason: If symptoms return, Further diagnostic work-up, Recheck today's complaints, Continuance of care, Re-evaluation by your physician. Problem is an ongoing problem. Symptoms have improved. kdr
[2019-02-05 01:43] VITALS: O2SAT 98
[2019-02-05 01:46] VITALS: BP 145/76; TEMP 98
== END 2019-02-04 23:05 | disposition home or self-care (01) ==
LOC: ER 19:57
DX: M25.511 Pain in right shoulder (principal); E03.9 Hypothyroidism, unspecified; E07.9 Disorder of thyroid, unspecified; F03.90 Unspecified dementia, unspecified severity, without behavioral disturbance, psychotic disturbance, mood disturbance, and anxiety; Z79.82 Long term (current) use of aspirin; Z88.2 Allergy status to sulfonamides; Z88.5 Allergy status to narcotic agent
CPT/HCPCS: 93971; 99284

== ENCOUNTER 2019-05-11 20:37 | Inpatient (IN) | payer OTHER, MEDICARE ==
[2019-05-11] MEDS ORDERED: HYDROCODONE/APAP 5/325 MG TAB ONE (21:13)
[2019-05-11] MEDS ORDERED: FENTANYL CITR 100 MCG/2 ML ONE (23:31)
[2019-05-11 23:42] LABS: Absolute Lymphocytes (CBC) 1.6 K/uL (0.7-4.9); Hematocrit 24.9 % (36.0-45.0); Lymphocytes % 16.9 % (15.3-44.8); MPV 7.6 fL (7.6-11.3); RBC Red Blood Cell Count 3.38 M/uL (3.86-4.86)
[2019-05-11 23:52] LABS: Potassium 3.6 mmol/L (3.5-5.1)
[2019-05-12] MEDS ORDERED: NA CHLORIDE 0.9% 500 ML ONE (00:25)
--- NOTE | 2019-05-12 01:54 | EDPHYS ---
Physician Documentation [facility] Name: Julissa Courtney Age: 88 yrs Sex: Female : 1930 Arrival Date: 05/11/2019 Time: 20:45 Bed 16 Private MD: ED Physician Tushar Silver HPI: 05/12 01:45 This 88 yrs old Female presents to ER via EMS with complaints of leg pain. gs 01:45 The patient presents with a contusion. The complaints affect the left calf and medial gs aspect of left calf. Context: resulted from a mis-step. Onset: The symptoms/episode began/occurred acutely, just prior to arrival. Modifying factors: the symptoms are aggravated by movement. Associated signs and symptoms: Pertinent positives: swelling. Severity of symptoms: At their worst the symptoms were moderate, in the emergency department the symptoms are unchanged. The patient has experienced similar episodes in the past, a few times. Historical: - Allergies: 05/11 20:50 Sulfa (Sulfonamide Antibiotics); jb4 20:50 tranqulizer (unknown); jb4 - Home Meds: 20:50 aspirin 81 mg Oral TbEC [Active]; B-12 DOTS Oral [Active]; Fosamax 70 mg Oral tab 1 tab jb4 once wkly [Active]; Iron CR Oral [Active]; levothyroxine oral [Active]; Potassium Chloride Oral [Active]; Vitamin D3 Oral [Active]; - PMHx: 20:50 Arthritis; Dementia; Hypothyroidism; lymphedema; Thyroid problem; Ulcers; jb4 - Immunization history:: Adult Immunizations unknown. - Social history:: The patient lives at home, Smoking status: Patient/guardian denies using tobacco. - Ebola Screening: : No symptoms or risks identified at this time. ROS: 05/12 01:45 Unable to obtain ROS due to baseline dementia. gs Exam: 01:45 Eyes: Pupils equal round and reactive to light, extra-ocular motions intact. Lids and gs lashes normal. Conjunctiva and sclera are non-icteric and not injected. Cornea within normal limits. Periorbital areas with no swelling, redness, or edema. Neck: Trachea midline, no thyromegaly or masses palpated, and no cervical lymphadenopathy. Supple, full range of motion without nuchal rigidity, or vertebral point tenderness. No Meningismus. Chest/axilla: Normal chest wall appearance and motion. Nontender with no deformity. No lesions are appreciated. Cardiovascular: Regular rate and rhythm with a normal S1 and S2. No gallops, murmurs, or rubs. Normal PMI, no JVD. No pulse deficits. Respiratory: Lungs have equal breath sounds bilaterally, clear to auscultation and percussion. No rales, rhonchi or wheezes noted. No increased work of breathing, no retractions or nasal flaring. Abdomen/GI: Soft, non-tender, with normal bowel sounds. No distension or tympany. No guarding or rebound. No evidence of tenderness throughout. Back: No spinal tenderness. No costovertebral tenderness. Full range of motion. Skin: Warm, dry with normal turgor. Normal color with no rashes, no lesions, and no evidence of cellulitis. Neuro: Awake and alert, GCS 15, oriented to person, place, time, and situation. Cranial nerves II-XII grossly intact. Motor strength 5/5 in all extremities. Sensory grossly intact. Cerebellar exam normal. Normal gait. 01:45 Constitutional: The patient appears alert, awake. 01:45 Musculoskeletal/extremity: Extremities: noted in the left leg: ecchymosis, swelling, tenderness, lymphedema mod to severe not tense, ROM: limited active range of motion due to pain, limited passive range of motion due to pain, Perfusion: the patient is normally perfused throughout, Sensation intact. Vital Signs: 05/11 20:50 BP 162 / 73; Pulse 81; Resp 18; Temp 97.8(O); Pulse Ox 100% on R/A; Weight 56.7 kg (R); jb4 Height 5 ft. 3 in. (160.02 cm) (R); Pain 04/28; 22:27 BP 156 / 85; Pulse 99; Resp 16; Pulse Ox 99% on R/A; jb4 23:30 BP 151 / 81; Pulse 93; Resp 16; Pulse Ox 100% on R/A; jb4 05/12 00:38 BP 140 / 77; Pulse 79; Resp 18; Pulse Ox 100% on R/A; jb4 01:48 BP 151 / 85; Pulse 85; Resp 22; Pulse Ox 100% ; jb4 02:33 BP 147 / 69; Pulse 72; Resp 16; Temp 98.6(TE); Pulse Ox 100% on R/A; [facility] 05/11 20:50 Body Mass Index 22.14 (56.70 kg, 160.02 cm) [facility] MDM: 05/11 21:09 Patient medically screened. 05/12 01:45 Differential diagnosis: closed fracture, contusion, hematoma, dvt. Data reviewed: vital gs signs, nurses notes, old medical records, lab test result(s), radiologic studies. Counseling: I had a detailed discussion with the patient and/or guardian regarding: the historical points, exam findings, and any diagnostic results supporting the discharge/admit diagnosis, lab results, radiology results, the need for further work-up and treatment in the hospital. Physician consultation: Nicolas Rodgers MD and will see patient in inpatient room. 05/11 23:12 Order name: CBC with Diff; Complete Time: 23:55 05/11 23:12 Order name: Basic Metabolic Panel; Complete Time: 23:55 05/11 21:11 Order name: Tib Fib Left XRAY 05/12 01:54 Order name: PT-INR 05/12 02:25 Order name: CBC with Automated Diff EDMD 05/12 02:25 Order name: CBC with Automated Diff EDMS 05/11 21:11 Order name: Femur Left XRAY 05/11 23:12 Order name: US Extremity Venous Unilateral Ltd 05/11 23:12 Order name: US LE Artery Uni Ltd 05/12 00:40 Order name: Tib Fib Left W Con EDMS 05/11 21:11 Order name: Charlie Wrap: left leg; Complete Time: 22:26 05/12 02:25 Order name: CONS Physician Consult EDMS 05/12 02:25 Order name: NPO EDMS Administered Medications: 05/11 21:23 Drug: [place] 5 mg-325 mg 1 tabs {Note: Rass score 0.} Route: PO; [facility] 21:40 Follow up: Response: No adverse reaction; Pain is decreased; RASS: Alert and Calm (0) [facility] 23:38 Drug: fentaNYL (PF) 25 mcg {Note: Rass score 0.} Route: IVP; Site: left wrist; [facility] 23:59 Follow up: Response: No adverse reaction; Pain is decreased; RASS: Alert and Calm (0) [facility] 05/12 00:41 Drug: NS 0.9% 500 ml Route: IV; Rate: bolus; Site: left wrist; jb4 02:34 Follow up: Response: No adverse reaction; IV Status: Completed infusion; IV Intake: jb4 500ml 02:24 Drug: NS 0.9% 1000 ml Route: IV; Rate: 100 ml/hr; Site: right forearm; jb4 02:34 Follow up: Response: No adverse reaction; IV Status: Infusion continued upon admission jb4 Disposition: 05/12/19 01:53 Hospitalization ordered by Gaudencio Whitten for Observation. Preliminary diagnosis is hematoma. - Bed requested for Telemetry/MedSurg (observation). - Status is Observation. jb4 - Condition is Stable. - Problem is new. - Symptoms have improved. UTI on Admission? No Signatures: Dispatcher [employer] EDMD Lara Kc RN RN Nicolas Irby RN RN jb Tushar Silver MD MD gs Corrections: (The following items were deleted from the chart) 00:40 05/11 23:16 Lower Extremity W/ Cont ordered. [facility] 05/12 02:29 01:53 Hospitalization Ordered by Gaudencio Whitten MD for Observation. Preliminary diagnosis is hematoma. Bed requested for Telemetry/MedSurg (observation). Status is Observation. Condition is Stable. Problem is new. Symptoms have improved. UTI on Admission? No. gs 03:13 02:29 05/12/2019 01:53 Hospitalization Ordered by Gaudencio Whitten MD for Observation. jb4 Preliminary diagnosis is hematoma. Bed requested for Telemetry/MedSurg (observation). Status is Observation. Condition is Stable. Problem is new. Symptoms have improved. UTI on Admission? No. mw
--- NOTE | 2019-05-12 01:54 | ER ---
Nurse's Notes [facility] Name: Julissa Courtney Age: 88 yrs Sex: Female : 1930 Arrival Date: 05/11/2019 Time: 20:45 Bed 16 Private MD: Diagnosis: hematoma Presentation: 05/11 20:45 Presenting complaint: EMS states: Pt reports having pain in the left leg. This is jb4 reportedly a chronic issue that has been worse today after she scraped her leg around 1528. Caregiver reports that this happens daily and takes 3 hours of her legs being elevated to decrease the pain. Transition of care: patient was not received from another setting of care. Onset of symptoms was May 11, 2019. Risk Assessment: Do you want to hurt yourself or someone else? Patient reports no desire to harm self or others. Initial Sepsis Screen: Does the patient meet any 2 criteria? No. Patient's initial sepsis screen is negative. Does the patient have a suspected source of infection? No. Patient's initial sepsis screen is negative. Care prior to arrival: None. 20:45 Method Of Arrival: EMS: [facility] jb4 20:45 Acuity: MIKE 3 jb4 Historical: - Allergies: 20:50 Sulfa (Sulfonamide Antibiotics); jb4 20:50 tranqulizer (unknown); jb4 - Home Meds: 20:50 aspirin 81 mg Oral TbEC [Active]; B-12 DOTS Oral [Active]; Fosamax 70 mg Oral tab 1 tab jb4 once wkly [Active]; Iron CR Oral [Active]; levothyroxine oral [Active]; Potassium Chloride Oral [Active]; Vitamin D3 Oral [Active]; - PMHx: 20:50 Arthritis; Dementia; Hypothyroidism; lymphedema; Thyroid problem; Ulcers; jb4 - Immunization history:: Adult Immunizations unknown. - Social history:: The patient lives at home, Smoking status: Patient/guardian denies using tobacco. - Ebola Screening: : No symptoms or risks identified at this time. Screenin:51 Abuse screen: Denies threats or abuse. Nutritional screening: No deficits noted. jb4 Tuberculosis screening: No symptoms or risk factors identified. Fall Risk None identified. Assessment: 20:51 General: Appears in no apparent distress. uncomfortable, Behavior is cooperative. Pain: jb4 Complains of pain in left leg Pain does not radiate. Pain currently is 10 out of 10 on a pain scale. Pain began 1528 Is continuous. Neuro: Level of Consciousness is awake, alert, obeys commands, Oriented to person, situation. Cardiovascular: Patient's skin is warm and dry. Respiratory: Airway is patent Respiratory effort is even, unlabored, Respiratory pattern is regular, symmetrical. GI: No deficits noted. No signs and/or symptoms were reported involving the gastrointestinal system. : No deficits noted. No signs and/or symptoms were reported regarding the genitourinary system. EENT: No deficits noted. No signs and/or symptoms were reported regarding the EENT system. Derm: Skin is intact, Skin is pink, warm \T\ dry. Musculoskeletal: Swelling present in right leg and left leg. 20:51 Injury Description: Bruise sustained to left calf is purple. jb4 22:26 Reassessment: Patient appears in no apparent distress at this time. No changes from jb4 previously documented assessment. Patient and/or family updated on plan of care and expected duration. Pain level reassessed. Pt's respirations are even and unlabored, no s/s of distress noted. 23:15 Reassessment: Patient appears in no apparent distress at this time. Patient and/or jb4 family updated on plan of care and expected duration. Pain level reassessed. PT is awake in bed complaining that the pain is worse, provider notified see [facility] for orders. 05/12 00:43 Reassessment: Patient appears in no apparent distress at this time. Patient and/or jb4 family updated on plan of care and expected duration. Pain level reassessed. Respirations are even and unlabored. no s/s of pain or distress noted. Patient states feeling better. 01:47 Reassessment: Patient appears in no apparent distress at this time. Patient and/or jb4 family updated on plan of care and expected duration. Pain level reassessed. PT is back from ultrasound. respirations are even and unlabored. no s/s of distress noted. 01:56 Reassessment: Leg rewrapped with bhavya bandage, bruise has increased in size, provider jb4 notified. 02:33 Reassessment: Patient appears in no apparent distress at this time. Patient and/or jb4 family updated on plan of care and expected duration. Pain level reassessed. PT is resting in bed speaking with the spiritual care coordinator, no s/s of distress or pain noted. Vital Signs: 05/11 20:50 BP 162 / 73; Pulse 81; Resp 18; Temp 97.8(O); Pulse Ox 100% on R/A; Weight 56.7 kg (R); jb4 Height 5 ft. 3 in. (160.02 cm) (R); Pain 04/28; 22:27 BP 156 / 85; Pulse 99; Resp 16; Pulse Ox 99% on R/A; jb4 23:30 BP 151 / 81; Pulse 93; Resp 16; Pulse Ox 100% on R/A; jb4 05/12 00:38 BP 140 / 77; Pulse 79; Resp 18; Pulse Ox 100% on R/A; jb4 01:48 BP 151 / 85; Pulse 85; Resp 22; Pulse Ox 100% ; jb4 02:33 BP 147 / 69; Pulse 72; Resp 16; Temp 98.6(TE); Pulse Ox 100% on R/A; jb4 05/11 20:50 Body Mass Index 22.14 (56.70 kg, 160.02 cm) jb4 ED Course: 05/11 20:45 Patient arrived in ED. jb4 20:48 Triage completed. jb4 20:50 Arm band placed on left wrist. jb4 20:51 Patient has correct armband on for positive identification. Bed in low position. Call jb4 light in reach. Side rails up X 1. Pulse ox on. NIBP on. 20:52 Tushar Silver MD is Attending Physician. gs 21:12 Nicolas Irby, RN is Primary Nurse. jb4 22:24 Tib Fib Left XRAY In Process Unspecified. EDMS 22:24 Femur Left XRAY In Process Unspecified. EDMS 23:30 Initial lab(s) drawn, by me, sent to lab. Inserted saline lock: 22 gauge in left wrist, jb4 using aseptic technique. Blood collected. 05/12 00:38 CT completed. Patient tolerated procedure well. Patient moved to CT via stretcher. Patient moved back from CT. 00:50 Tib Fib Left W Con In Process Unspecified. EDMS 01:35 US Extremity Venous Unilateral Ltd In Process Unspecified. EDMS 01:35 US LE Artery Uni Ltd In Process Unspecified. EDMS 01:50 Gaudencio Whitten MD is Hospitalizing Provider. gs 02:15 IV discontinued, intact, bleeding controlled, No redness/swelling at site. Pressure jb4 dressing applied. 02:22 Initial lab(s) drawn, by me, sent to lab. Inserted saline lock: 22 gauge in right jb4 forearm, using aseptic technique. Blood collected. 02:40 No provider procedures requiring assistance completed. Patient admitted, IV remains in jb4 place. Administered Medications: 05/11 21:23 Drug: [place] 5 mg-325 mg 1 tabs {Note: Rass score 0.} Route: PO; jb4 21:40 Follow up: Response: No adverse reaction; Pain is decreased; RASS: Alert and Calm (0) jb4 23:38 Drug: fentaNYL (PF) 25 mcg {Note: Rass score 0.} Route: IVP; Site: left wrist; jb4 23:59 Follow up: Response: No adverse reaction; Pain is decreased; RASS: Alert and Calm (0) jb4 05/12 00:41 Drug: NS 0.9% 500 ml Route: IV; Rate: bolus; Site: left wrist; jb4 02:34 Follow up: Response: No adverse reaction; IV Status: Completed infusion; IV Intake: jb4 500ml 02:24 Drug: NS 0.9% 1000 ml Route: IV; Rate: 100 ml/hr; Site: right forearm; jb4 02:34 Follow up: Response: No adverse reaction; IV Status: Infusion continued upon admission jb4 Intake: 02:34 IV: 500ml; Total: 500ml. jb4 Outcome: 01:53 Decision to Hospitalize by Provider. gs 02:40 Admitted to Med/surg accompanied by nurse, via stretcher, room 229, with chart, Report jb4 called to BRADEN Tovar 02:40 Condition: stable 02:40 Discharge instructions given to eligibility services representative, Instructed on the need for admit, Demonstrated understanding of instructions. 03:13 Patient left the ED. jb4 Signatures: Dispatcher [employer] SANDRAHI Vin Meek James, RN RN jb4 Tushar Silver MD MD Corrections: (The following items were deleted from the chart) 05/11 21:33 20:51 Neuro: Level of Consciousness is awake, alert, obeys commands, Oriented to jb4 person, place, time, situation, jb4 05/12 01:56 01:47 Reassessment: Patient appears in no apparent distress at this time. Patient jb4 and/or family updated on plan of care and expected duration. Pain level reassessed. PT is back from ultrasound. respirations are even and unlabored. no s/s of distress noted. jb4
[2019-05-12] MEDS ORDERED: NA CHLORIDE 0.9% 1,000 ML ONE (01:57)
[2019-05-12] MEDS ORDERED: MORPHINE 2 MG/ML SYR IV PRN (02:23)
[2019-05-12 02:40] LABS: Protime INR 1.1
[2019-05-12] MEDS ORDERED: D5 0.45 NS 1,000 ML IV SCH (03:00)
[2019-05-12] MEDS ORDERED: CODEINE 30MG/APAP 300MG TAB PO PRN (06:48)
[2019-05-12] MEDS ORDERED: ACETAMINOPHEN 500 MG TAB PO PRN (06:49)
[2019-05-12] MEDS: D5 0.45 NS 1,000 ML IV SCH (07:00)
--- NOTE | 2019-05-12 07:02 | RAD REPORT ---
EXAM DESCRIPTION: US - Extremity Venous Uni Ltd - 05/12/2019 1:34 am CLINICAL HISTORY: Left leg pain COMPARISON: None. TECHNIQUE: Real-time sonographic evaluation of the left lower extremity deep venous system was perfo rmed. FINDINGS: Normal compressibility, flow augmentation, phasic flow and spontaneous flow are identified in the left lower extremity common femoral, superficial femoral, popliteal and posterior tibial vein s. No intraluminal filling defects seen. IMPRESSION: No DVT in the left lower extremity.
[2019-05-12 07:12] LABS: Absolute Lymphocytes (CBC) 0.9 K/uL (0.7-4.9); Basophils % 0.8 % (0-1.3); Hematocrit 18.1 % (36.0-45.0); Lymphocytes % 14.5 % (15.3-44.8); MPV 7.5 fL (7.6-11.3); RBC Red Blood Cell Count 2.41 M/uL (3.86-4.86)
--- NOTE | 2019-05-12 07:20 | RAD REPORT ---
EXAM DESCRIPTION: RAD - Femur Left - 05/11/2019 10:23 pm CLINICAL HISTORY: Left leg pain COMPARISON: Spine and pelvis imaging January 2019 FINDINGS: AP view of the proximal femur and hip joint obtained. AP and lateral views the distal left leg obtained. Patient was unable to tolerate positioning for lateral view of the proximal femur and hip joint. Imaged portion of the left hemipelvis shows old fracture of the left inferior pubic ramus. Bones are osteopenic. 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 No subsidence, loosening or other implant related abnormalit y. No femur fracture is identified. Advanced degenerative changes are present at the knee joint. Medial and lateral compartment narrowi ng present. Minimal joint effusion is seen. There is significant left lateral subluxation of the tibi a relative to the femoral condyles. Patella marginal spurring. No suspicious soft tissue finding. 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 No acute findings seen.
--- NOTE | 2019-05-12 07:25 | RAD REPORT ---
EXAM DESCRIPTION: RAD - Tib Fib Left - 05/11/2019 10:23 pm CLINICAL HISTORY: Left leg pain, known lymphedema COMPARISON: Left tib-fib June 2015, left leg January 2019. FINDINGS: Bones are osteopenic. No acute fracture changes identifiable. No pathologic bone process s een. Patient has advanced degenerative change at the knee joint with medial and lateral compartment n arrowing and significant marginal spurring. There is significant left lateral subluxation of the tibi al plateau relative to the femoral condyles. Ankle degenerative changes are mild. Patient has a very small plantar spur. A minimal joint effusion is suspected at the knee. Pronounced lymph edema is seen in the left lower extremity similar in severity to 2015. No air or fo reign body seen in the soft tissues. IMPRESSION: Osteopenic and degenerative changes are present as detailed. No acute tib-fib finding. Pronounced left lower extremity lymphedema similar to 2015. Small hairline fractures in the femoral condyles or tibial plateau are potentially occult. Continued unexplained symptoms can be addressed with either MRI imaging or thin section CT imaging.
[2019-05-12 07:30] LABS: Albumin 2.7 g/dL (3.4-5.0); Bilirubin Total 0.9 mg/dL (0.2-1.0); Potassium 3.4 mmol/L (3.5-5.1); Protein, Total 4.9 g/dL (6.4-8.2)
[2019-05-12 08:14] LABS: Thyroid Stimulating Hormone 5.84 uIU/mL (0.360-3.740)
[2019-05-12] MEDS: SPIRONOLACTONE 25 MG TABLET PO SCH ×2 (09:00→22:51)
[2019-05-12] MEDS ORDERED: AMPICILLIN/SULBACT 1.5GM VIAL IVPB SCH (09:00)
[2019-05-12] MEDS: AMPICILLIN/SULBACT 1.5 GM in NA CHLORIDE 0.9% 100 ML IVPB SCH ×2 (09:42→17:16)
[2019-05-12] MEDS ORDERED: NA CHLORIDE 0.9% 250 ML IV SCH (11:00)
--- NOTE | 2019-05-12 11:11 | RAD REPORT ---
EXAM DESCRIPTION: US - Lower Extremity Artery Uni Ltd - 05/12/2019 1:35 am CLINICAL HISTORY: PAIN COMPARISON: No comparisons TECHNIQUE: Doppler evaluation of the arterial tree performed. Waveforms and velocity values were obt ained along with visual inspection. FINDINGS: No occlusion or focal flow restricting lesion is identifiable. Triphasic and biphasic wave forms were seen along the length of the lower extremity. Atherosclerotic changes are present without evidence for a significant narrowing of the vessel lumen. No suspicious mass or soft tissue abnormality is seen. IMPRESSION: No occlusion or focal flow restricting lesion identified. Atherosclerotic changes are pr esent but appear mild.
--- NOTE | 2019-05-12 11:50 | RAD REPORT ---
EXAM DESCRIPTION: CT - Tib Fib Left W Con - 05/12/2019 2:04 am CLINICAL HISTORY: Pain after scraping left lower leg TECHNIQUE: Contiguous axial CT images obtained through the left lower leg following the uneventful a dministration of IV contrast. Coronal and sagittal reformatted images were provided. This exam was performed according to our departmental dose-optimization program, which includes autom ated exposure control, adjustment of the mA and/or kV according to patient size and/or use of iterati ve reconstruction technique. COMPARISON: None available for comparison FINDINGS: Bones: Osseous structures are diffusely osteopenic. No acute fracture. No osseous destruct ion or erosion. Joints: Mild to moderate tricompartmental degenerative changes at the level of the knee most pronounc ed at the medial and lateral compartments. Small suprapatellar joint effusion. Soft tissues: Extensive superficial soft tissue edema which becomes confluent at the distal lower leg . Lobulated hematoma within the posterior lateral superficial soft tissues at the mid diaphyseal leve l measuring approximately 10 x 4.5 x 9 cm. Lobulated areas of contrast at the anterior lateral margin of the hematoma (series 304 image 94 and series 301 images 46 through 50). Mild deep soft tissue oscar ma within the anterior and posterior compartments. IMPRESSION: 1. Diffuse generalized soft tissue edema which can be seen in the setting of celluliti s, venous stasis and lymphedema. Lobulated hematoma within the posterior lateral superficial soft tis sues at the mid diaphyseal level measuring approximately 10 x 4.5 x 9 cm. Areas of active bleeding id entified within the hematoma. 2. Other findings as above. THIS REPORT CONTAINS FINDINGS THAT MAY BE CRITICAL TO PATIENT CARE: The findings were verbally discu ssed via telephone conference with Dr. Tushar Silver on 05/12/2019 1:06 AM CDT. The results were ackn owledged and understood. Electronically signed by: Octavio Lujan MD 05/12/2019 1:06 AM CDT Due to temporary technical issues with the PACS/Fluency reporting system, reports are being signed by the in house radiologist as a courtesy to ensure prompt reporting. The interpreting radiologist is f ully responsible for the content of the report.
--- NOTE | 2019-05-12 14:39 | P.CNS ---
Date of Consult: 05/12/19 PC: I was asked to see this 88-year-old female regards to a hematoma on the posterior portion of her left lower leg. HPC: Patient apparently was being loaded into a vehicle so she could go get her blood work done as it was suspected that she was anemic. She hit her leg on the age of the door and developed a large hematoma. She is brought to the emergency room for evaluation treatment. PMH: Chronic bilateral lymphedema PSHx: Previous hematoma with exploration in that leg SOC: FDC patient, allergic to sulfa SYS REVIEW: Patient stated that she has tried again some sleep, and would not reveal any further details. O/E patient been napping, vital signs are stable. Currently being transfused a unit of packed red blood cells. HEENT: Not jaundiced Chest: Chest movement equal bile ABD: Not exam LOCO: Her left lower leg has a large hematoma about the size of a lemon on the posterior portion. It had been wearing a Charlie bandage. According to the nurses this is the same size as it was on admission 8 hr ago. DATA: Low hemoglobin, CT peer lay showed hematoma with some bleeding IMPRESSION: Stable PLAN: Continue current therapy, this is not require surgical intervention at this time.
[2019-05-12] MEDS ORDERED: POTASSIUM CL SA 10 MEQ TAB PO ONE (18:50)
[2019-05-12] MEDS ORDERED: FUROSEMIDE 20 MG/ 2ML VIAL IV ONE (20:00)
[2019-05-12] MEDS ORDERED: NA CHLORIDE 0.9% 250 ML ONE (21:09)
[2019-05-12] MEDS ORDERED: ONDANSETRON 4 MG/2 ML VIAL IV PRN (21:56)
[2019-05-13] MEDS: AMPICILLIN/SULBACT 1.5 GM in NA CHLORIDE 0.9% 100 ML IVPB SCH ×3 (00:27→17:11)
[2019-05-13 03:52] LABS: Hematocrit 31.3 % (36.0-45.0)
--- NOTE | 2019-05-13 04:48 | HP ---
Date of Admission: 05/12/2019 Chief Complaint: Left leg injury. History Of Present Illness: This is an 88-year-old female patient, who came into office yesterday for outpatient blood test. Patient is in wheelchair at home and she has caregiver services at home. She has chronic lymphedema resulting in chronic swelling of both lower extremities. After she left my office, patient went home; and later on during late evening or during nighttime , she was brought into emergency room because of worsening bruising on the left leg as a result of injury. After she was evaluated in the ER, she was admitted to the hospital with extensive bruising of her entire left leg below the left knee between knee and ankle area. As per my discussion with daughter, she informed me that patient somehow got hurt when she came to office while she was getting in and out of car and she does not know exactly what time. There was no fall. After she went home from the office, family noted during evening hours that she was having worsening bruising of her left leg with worsening of the swelling, so they brought her to the emergency room. The ER physician contacted me last night requesting admission to hospital. Medications: She takes spironolactone 25 mg twice a day, levothyroxine 88 mcg p.o. a day. Allergies: SULFA AND SOME SIDE EFFECT TO SOME TRANQUILIZERS PER FAMILY CAUSING OPPOSITE EFFECT. Review of Systems: Musculoskeletal: As mentioned above. Dermatology: As mentioned above. All other systems reviewed and negative. Past Medical History: Significant for chronic lymphedema of legs, hypothyroidism, hypokalemia, pleural effusion, anemia, osteoporosis, gastroesophageal reflux disease. Past Surgical History: Significant for hip replacement, appendectomy, breast surgery, tonsillectomy. Family History: Significant for sister with lupus. Social History: Negative for smoking or alcohol use. Physical Examination: Vital Signs: Temperature 97.8, pulse 75, respiratory rate 20, blood pressure 150/67, oxygen saturation 98%. Height 5 feet 3 inches. Weight 125 pounds. General: Awake, alert, oriented, not in distress. HEENT: Head atraumatic, normocephalic. Conjunctivae nonerythematous. Sclerae white. Mouth, no thrush or edema noted. Ears/Nose, no mass, lesion, discharge noted. Neck: Supple. No JVD, lymph nodes, bruit, thyromegaly noted. Lungs: Bilateral good equal air entry. Clear to auscultation. No rhonchi. No rales. Heart: Normal heart sounds, no murmur or gallop. Abdomen: Soft, bowel sounds normal. No guarding, rigidity, tenderness, mass, hepatosplenomegaly, distention, or bruit noted. Extremities: Patient has bilateral leg lymphedema, which is chronic and unchanged, but left leg has extensive bruising in area between knee to ankle with some warmness of skin. Skin: No rash, ulcer, cellulitis. Lymphatics: No lymph node enlargement in neck, supraclavicular, infraclavicular region. Neuro: No focal neurological deficit. Chest: Unremarkable. External Genitalia: Deferred. Rectal: Deferred. Laboratory Data: White count 9.6, hemoglobin 8.4, platelets 512, this was when she first came into emergency room. INR was 1.10. Sodium 139, potassium 3.6, chloride 106, bicarb 21, BUN 22, creatinine 0.92, glucose 92. Repeat hemoglobin this morning was 6.1. Venous doppler of leg shows no DVT in the left lower extremity. CT scan of left leg shows diffuse generalized soft tissue edema which can be seen in the setting of cellulitis, venous stasis and lymphedema. Lobulated hematoma within the posterior lateral superficial soft tissues at the mid diaphyseal level measuring approximately 10 x 4.5 x 9 cm. Areas of active bleeding identified within the hematoma. Left femur x-ray shows advanced left knee degenerative change is detailed. No acute findings seen. Impression: 1. Acute blood loss anemia. 2. Cellulitis, left leg. 3. Lymphedema, bilateral legs. 4. Contusion, left leg. 5. Hypothyroidism. 6. Gastroesophageal reflux disease. 7. Hypokalemia. Plan: Admit patient to hospital for further evaluation and management of this problem. Patient is appropriate for inpatient and is expected to spend 2 midnights in hospital. We will go ahead and continue home medications per order. Empiric antibiotic, Unasyn, will be started for her left leg cellulitis problem. General surgeon, Dr. Rodgers, was consulted to evaluate patient's left leg contusion and we will need to monitor her for any compartment syndrome type of problem. Her neurovascular status as examined this morning was normal. If okay with general surgeon, we will start her on diet and give 3 units of PRBC blood transfusion per order today. After 2 units of PRBC blood transfusion , we will give 20 mg Lasix IV x1 dose and we will follow up on hemoglobin and blood work again tomorrow. I have called patient's daughter and discussed details with her and we also discussed advance directives; and as per my discussion with the patient's daughter as the decision made by the patient and family, we will write DNR order in the chart. GERMAN/SNOW Voice ID: [id number] MTDD
[2019-05-13] MEDS: LEVOTHYROXINE SOD 0.088 MG TAB PO SCH (05:23)
[2019-05-13 05:42] LABS: Magnesium 2.1 mg/dL (1.8-2.4); Potassium 3.9 mmol/L (3.5-5.1)
[2019-05-13 05:46] LABS: Absolute Lymphocytes (CBC) 1.5 K/uL (0.7-4.9); Basophils % 1.2 % (0-1.3); Hematocrit 30.7 % (36.0-45.0); Lymphocytes % 25.8 % (15.3-44.8); MPV 7.9 fL (7.6-11.3); RBC Red Blood Cell Count 3.95 M/uL (3.86-4.86)
[2019-05-13] MEDS: SPIRONOLACTONE 25 MG TABLET PO SCH ×2 (09:00→20:59)
[2019-05-13] MEDS ORDERED: POTASSIUM CL SA 10 MEQ TAB PO ONE (09:00)
[2019-05-13 16:40] LABS: Hematocrit 29.6 % (36.0-45.0)
[2019-05-13] MEDS: D5 0.45 NS 1,000 ML IV SCH (17:15)
--- NOTE | 2019-05-13 17:17 | PN ---
Date of Progress Note: 05/13/2019 Subjective: The patient was seen this morning for followup. She was sleeping, lying in bed, not in distress. Her caregiver was with her at bedside. Yesterday, the patient had uneventful day __ reported by caregiver and also talked to patient's daughter on the phone. She also reported that the patient did not have any other problems yesterday after I saw her in the morning. She did receiv e 3 units of blood transfusion. Dr. Rodgers saw her from General Surgery did not suggest any interve ntion. Patient is tolerating diet well. Objective: Vital Signs: Reviewed. HEENT: Unremarkable. Lungs: Clear to auscultation. Heart: Sounds normal. Abdomen: Soft. Bowel sounds normal. No guarding, rigidity, tenderness, or distention. Extremities: Bilateral leg edema due to lymphedema present. Left leg has extensive bruising on her left leg with some hematoma, superficial hematoma on the calf area. No open wound. No discharge. N o bleeding. Left lower thigh has some changes of cellulitis. Overall leg looks better today than ye sterday. Laboratory Data: White count 6, hemoglobin 10.3, platelets 333. Sodium 141, potassium 3.9, chloride 111, bicarb 21, BUN 19, creatinine 0.74, glucose 90. Impression: 1.Acute blood loss anemia. 2.Cellulitis, left leg. 3.Hypothyroidism. 4.Lymphedema, legs. 5.Hypokalemia. Plan: We will continue current medications. Continue current antibiotics, which is Unasyn. Monitor the patient's hemoglobin today and tomorrow morning. If her condition is stable, then she can be di scharged to go home tomorrow with oral antibiotic Augmentin 875 mg 2 times a day for 10 days. Patien t should not take any medications like aspirin, Aleve, Motrin type of medications. Upon discharge, t he patient to follow up at my office next week on Thursday or . Details were discussed with the patient's daughter on the phone. Hospitalist team will take [facility] and I have discussed details with the hospitalist team. GERMAN/MODL Voice ID: [id number] Report ID: [id number]
[2019-05-14] MEDS: AMPICILLIN/SULBACT 1.5 GM in NA CHLORIDE 0.9% 100 ML IVPB SCH ×2 (00:49→09:38)
[2019-05-14 04:02] VITALS: O2SAT 96
[2019-05-14] MEDS: LEVOTHYROXINE SOD 0.088 MG TAB PO SCH (05:49)
[2019-05-14 06:23] VITALS: BMI 20.9
[2019-05-14 07:58] LABS: Absolute Lymphocytes (CBC) 1.3 K/uL (0.7-4.9); Basophils % 0.5 % (0-1.3); Hematocrit 27.7 % (36.0-45.0); Lymphocytes % 20.4 % (15.3-44.8); MPV 7.8 fL (7.6-11.3); RBC Red Blood Cell Count 3.54 M/uL (3.86-4.86)
[2019-05-14 08:14] LABS: Potassium 3.8 mmol/L (3.5-5.1)
[2019-05-14] MEDS: SPIRONOLACTONE 25 MG TABLET PO SCH (09:37)
--- NOTE | 2019-05-14 09:37 | P.DS ---
Admission Date: 05/12/19 (Hospitalist) Discharge Date: 05/14/19 Disposition: ROUTINE DISCHARGE Discharge Condition: FAIR Brief History of Present Illness: Patient admitted with anemia and hematoma Hospital Course: Patient is 88 years of age admitted with Shonna me and left-sided hematoma seen by Dr. Kelsey patient was transfused blood at the time of discharge alert oriented responsive cooperative checks still show some swelling but there was no tenderness vital signs stable hemoglobin stable patient to be discharged home on Augmentin labs reviewed saturation satisfactory the legs on examination alert oriented responsive cooperative chest clear cardiovascular system os sounds normal abdomen soft extremity left calf on hematoma confirmed on CT scan white count normal Vital Signs/Physical Exam: Temp Pulse Resp BP Pulse Ox 98.8 F 71 17 124/54 L 96 05/14/19 04:00 05/14/19 04:00 05/14/19 04:00 05/14/19 04:00 05/14/19 04:00 Laboratory Data at Discharge: WBC 6.3 K/uL (4.3-10.9) 05/14/19 07:30 Hgb 9.3 g/dL (12.0-15.0) L 05/14/19 07:30 Hct 27.7 % (36.0-45.0) L 05/14/19 07:30 Plt Count 307 K/uL (152-406) 05/14/19 07:30 PT 12.9 SECONDS (9.5-12.5) H 05/12/19 02:22 INR 1.10 05/12/19 02:22 Sodium 142 mmol/L (136-145) 05/14/19 07:30 Potassium 3.8 mmol/L (3.5-5.1) 05/14/19 07:30 BUN 20 mg/dL (7-18) H 05/14/19 07:30 Creatinine 0.69 mg/dL (0.55-1.3) 05/14/19 07:30 Glucose 85 mg/dL (74-106) 05/14/19 07:30 Magnesium 2.0 mg/dL (1.8-2.4) 05/14/19 07:30 Total Bilirubin 0.9 mg/dL (0.2-1.0) 05/12/19 06:58 AST 17 U/L (15-37) 05/12/19 06:58 ALT 8 U/L (12-78) L 05/12/19 06:58 Alkaline Phosphatase 51 U/L (45-117) 05/12/19 06:58 Home Medications: Levothyroxine [Synthroid*] 100 mcg PO [id number] 02/28/16 Calcium Phosphate Trib/Vit D3 [Caltrate Gummy Bites] 1 tab PO DAILY 04/04/17 Hayder Plex 85 mg PO DAILY 10/29/17 Pantoprazole [Protonix Tab*] 40 mg PO DAILY #30 tab 12/18/17 Spironolactone 25 mg PO BID #60 tablet 12/18/17 Ondansetron HCl [Zofran] 4 mg PO BID 6AM 6PM PRN 05/12/19 Amoxicillin/Potassium Clav [Augmentin 500-125 Tablet] 1 each PO BID #20 tablet 05/14/19 New Medications: Amoxicillin/Potassium Clav [Augmentin 500-125 Tablet] 1 each PO BID #20 tablet Patient Discharge Instructions: Continue prior home medications (levothyroxine and spironolactone). Do not take any Aspirin, Aleve, Motrin type of medications. Take Augmentin 875mg, 1 tablet by mouth two times a day with food for ten days. Followup with Dr. Murray next week on Thursday or . Diet: Regular Activity: Ad mela
[2019-05-14 12:51] VITALS: BP 127/63; TEMP 98.3
== END 2019-05-14 13:24 | disposition home or self-care (01) | DRG 812 ==
LOC: ER 20:37 → ERHOLD 05-12 02:29 → OBSVTOIN 05-12 02:29 → INTOOBSV 05-12 02:29 → 2ND 05-12 02:42 → OBSVTOIN 05-12 08:04 → 4TH 05-13 15:42
PROVIDERS: ADMIT Internal Medicine; ATTEND Internal Medicine
PROC: 30233N1 Transfusion of Nonautologous Red Blood Cells into Peripheral Vein, Percutaneous Approach (ICD-10-PCS; principal; 2019-05-12)
DX: D62 Acute posthemorrhagic anemia (principal); L03.116 Cellulitis of left lower limb; S80.12XA Contusion of left lower leg, initial encounter; E87.6 Hypokalemia; E03.9 Hypothyroidism, unspecified; K21.9 Gastro-esophageal reflux disease without esophagitis; X58.XXXA Exposure to other specified factors, initial encounter; Y92.9 Unspecified place or not applicable
CPT/HCPCS: 36415; 36430; 73701; 80048; 80053; 83735; 84132; 84439; 84443; 85014; 85018; 85025; 85610; 86850; 86900; 86901; 93926; 93971; 96361; 96374; 99285; G0378; J0295; J1940; J3010; J7030; J7040; J7799; P9016; Q9967

== ENCOUNTER 2019-06-07 12:40 | Emergency (ER) | payer OTHER, MEDICARE ==
[2019-06-07 14:17] LABS: Basophils % 0.7 % (0-1.3); Hematocrit 29.7 % (36.0-45.0); Lymphocytes % 15.7 % (15.3-44.8); MPV 7.7 fL (7.6-11.3); RBC Red Blood Cell Count 3.78 M/uL (3.86-4.86)
[2019-06-07 14:32] LABS: Bilirubin Total 0.6 mg/dL (0.2-1.0); Potassium 3.6 mmol/L (3.5-5.1); Protein, Total 6.1 g/dL (6.4-8.2)
[2019-06-07] MEDS ORDERED: DIPHENHYDRAMINE 50 MG/ML VIAL ONE (15:14)
--- NOTE | 2019-06-07 16:21 | RAD REPORT ---
EXAM DESCRIPTION: CT - Abdomen Pelvis W Contrast - 06/07/2019 4:11 pm CLINICAL HISTORY: painless hematuria COMPARISON: CT study November 2017 TECHNIQUE: Biphasic, helical CT imaging of the abdomen and pelvis was performed following 100 ml non -ionic IV contrast. No oral contrast. All CT scans are performed using dose optimization technique as appropriate and may include automated exposure control or mA/KV adjustment according to patient size. FINDINGS: Motion degradation is present throughout the examination. Mild cardiomegaly is present increased from comparison. Small pericardial effusion seen posteriorly. Trace pleural effusions are present. No acute lung base finding. Liver and spleen show no suspicious findings. Pancreas is partially obscured by the isodense bowel. N o primary pancreatic process suspected. Gallbladder is contracted. Gallbladder wall show slight enhan cement compared to the prior study. Gallstones can be occult. No biliary tree abnormality seen. Symmetric renal function is seen with no hydronephrosis or suspicious renal mass. No pyelonephritis o r acute parenchymal process. Urinary bladder is fully contracted around a Yancey catheter precluding e valuation. Pelvic floor assessment is further limited by the dense spray artifact of the left hip bip olar prosthesis. No adrenal abnormalities. Moderate-sized hiatal hernia is present. No gastric dilatation or wall thickening. No dilated large o r small bowel. Moderate stool volume throughout the colon. Prominent diverticulosis is present withou t diverticulitis. The paucity of intra-abdominal fat and lack of oral contrast limits full bowel asse ssment. Motion degradation further limits assessment. A primary GI process is unlikely. No free air, pneumatosis or peritoneal free fluid. There is fluid retention in the subcutaneous fat ty tissues. No hernia, mass or bulky lymphadenopathy. Advanced bony degenerative changes are present. Old pelvic fracture changes are present. An acute cahparrita tebral body process is not suspected. IMPRESSION: No acute abnormalities identifiable. No CT finding to explain painless hematuria. Pleural effusions, solid viscera enhancement pattern and the fluid retention in the subcutaneous fat all support diminished cardiac function. An acute GI process is not suspected. Intraperitoneal assessment is limited by paucity of fat, patien t motion as well as spray artifact across the pelvic floor from the left hip prosthesis.
[2019-06-07 16:42] LABS: Urine Appearance CLOUDY; Urine Bilirubin NEGATIVE (NEG); Urine Blood 3+ (NEG); Urine Color RED; Urine Glucose NEGATIVE (NEG); Urine Microscopic Reflex ORDER UMIC; Urine Protein 2+ (NEG); Urine Specific Gravity >=1.030 (1.005-1.030)
[2019-06-07 16:45] LABS: Urine Bacteria >50 /HPF (<20); Urine Culture Reflex Order REFLEXED; Urine RBC TNTC /HPF (NONE SEEN)
--- NOTE | 2019-06-07 17:14 | EDPHYS ---
Physician Documentation [facility] Name: Julissa Courtney Age: 88 yrs Sex: Female : 1930 Arrival Date: 06/07/2019 Time: 12:43 Bed 17 Private MD: ED Physician Esa Ruiz HPI: 06/07 17:17 This 88 yrs old Female presents to ER via EMS with complaints of painless ps1 hematuria. 17:17 hs of dementia, lymphedema. patient BIBEMS after home health nurse reported hematuria. ps1 Patient states that she does not know what is going on and why she was brought here. She states that she is asymptomatic and was disturbed while eating lunch. She has a history of recurrent UTI and lymphedema with weeping wounds. She is on amoxicillin for her leg wounds. No fever, urgency, or dysuria. . Historical: - Allergies: 13:01 Sulfa (Sulfonamide Antibiotics); ca1 13:01 tranqulizer (unknown); ca1 - Home Meds: 13:01 pantoprazole 40 mg oral TbEC 1 tab once daily [Active]; levothyroxine 88 mcg oral tab 1 ca1 tab once daily [Active]; spironolactone 25 mg Oral tab 1 tab once daily [Active]; amox-clav 500mg 1 tab daily [Active]; ondansetron HCl 4 mg Oral tab 1 tabs every 12 hours [Active]; acetaminophen-codeine 300-30 mg Oral tab 1 tab daily [Active]; Hayder-Plex Iron 85mg 1 tab daily [Active]; Viactiv Calcium + D 2 tab daily [Active]; - PMHx: 13:01 Arthritis; Dementia; Hypothyroidism; lymphedema; Thyroid problem; Ulcers; ca1 - PSHx: 13:01 Appendectomy; Tonsillectomy; ca1 - Immunization history:: Adult Immunizations up to date, Flu vaccine is not up to date. It has been more than one year since last vaccine. - Social history:: Smoking status: Patient/guardian denies using tobacco. - Ebola Screening: : Patient negative for fever greater than or equal to 101.5 degrees Fahrenheit, and additional compatible Ebola Virus Disease symptoms Patient denies exposure to infectious person Patient denies travel to an Ebola-affected area in the 21 days before illness onset No symptoms or risks identified at this time. ROS: 17:17 Unable to obtain ROS due to baseline dementia. ps1 Exam: 17:17 Head/Face: Normocephalic, atraumatic. Eyes: Pupils equal round and reactive to light, ps1 extra-ocular motions intact. Lids and lashes normal. Conjunctiva and sclera are non-icteric and not injected. Chest/axilla: Normal chest wall appearance and motion. Nontender with no deformity. No lesions are appreciated. Cardiovascular: Regular rate and rhythm. No gallops, murmurs, or rubs. Normal PMI, no JVD. No pulse deficits. Respiratory: Lungs have equal breath sounds bilaterally, clear to auscultation and percussion. No rales, rhonchi or wheezes noted. No increased work of breathing, no retractions or nasal flaring. 17:17 Abdomen/GI: Soft, non-tender, with normal bowel sounds. No distension or tympany. No guarding or rebound. No evidence of tenderness throughout. 17:17 Constitutional: The patient appears alert, high level intelligence with ability to confabulate history, upon further discussion has marked dementia and poor historian short and residential. 17:17 : a chambers is noted, 3-way catheter is employed, urine is colunga red then improved to clear. 17:17 Skin: marked lymphedema bilat lower extremities. . Vital Signs: 13:01 BP 128 / 67; Pulse 75; Resp 18 S; Temp 98.2(TE); Pulse Ox 100% on R/A; Weight 68.04 kg ca1 (R); Height 5 ft. 5 in. (165.10 cm) (R); Pain 0/10; 14:28 BP 99 / 67; Pulse 71; Resp 17; Pulse Ox 99% on R/A; tw2 15:03 BP 106 / 69; Pulse 66; Resp 18 S; Pulse Ox 99% on R/A; ca1 16:15 BP 126 / 76; Pulse 66; Resp 17 S; Pulse Ox 100% on R/A; ca1 17:00 BP 137 / 77; Pulse 66; Resp 17 S; Pulse Ox 100% on R/A; ca1 13:01 Body Mass Index 24.96 (68.04 kg, 165.10 cm) ca1 MDM: 13:38 Patient medically screened. ps1 17:21 Differential diagnosis: kidney stone, malignancy, uterine fibroids, urinary tract ps1 infection. Data reviewed: vital signs, nurses notes, lab test result(s), radiologic studies. Counseling: I had a detailed discussion with the patient and/or guardian regarding: the historical points, exam findings, and any diagnostic results supporting the discharge/admit diagnosis, lab results, radiology results, the need for outpatient follow up, to return to the emergency department if symptoms worsen or persist or if there are any questions or concerns that arise at home. Response to treatment: the patient's symptoms have markedly improved after treatment, and as a result, I will discharge patient. 06/07 13:06 Order name: Urine Culture ps1 06/07 13:40 Order name: CBC with Diff; Complete Time: 14:50 [facility] 06/07 13:40 Order name: CMP; Complete Time: 14:50 [facility] 06/07 16:00 Order name: UA; Complete Time: 17:10 em1 06/07 16:46 Order name: Urine Microscopic Only; Complete Time: 17:10 [facility] 06/07 13:40 Order name: Straight Cath; Complete Time: 16:01 [facility] 06/07 15:41 Order name: Three way chambers irrigation; Complete Time: 16:01 [facility] 06/07 15:41 Order name: CT Abd/Pelvis - IV Contrast Only; Complete Time: 17:10 ps1 Administered Medications: 15:20 Drug: Benadryl 25 mg Route: IVP; Site: right antecubital; ca1 16:38 Follow up: Response: No adverse reaction ca1 Disposition: 17:22 Chart complete. ps1 Disposition: 06/07/19 17:12 Discharged to Home. Impression: Acute cystitis with hematuria. - Condition is Stable. - Discharge Instructions: Urinary Tract Infection, Adult. - Prescriptions for Keflex 500 mg Oral Capsule - take 1 capsule by ORAL route every 8 hours for 10 days; 30 capsule. - Medication Reconciliation Form, Thank You Letter, Antibiotic Education, Prescription Opioid Use form. - Follow up: Dain Timmons MD; When: 48 Hours; Reason: Recheck today's complaints, Continuance of care, Re-evaluation by your physician. Follow up: Emergency Department; When: As needed; Reason: Fever > 102 F, Worsening of condition. - Problem is new. - Symptoms have improved. Signatures: Dispatcher [employer] EDMS Esa Ruiz MD MD ps1 Acob, Mónica, RN RN ca1 Corrections: (The following items were deleted from the chart) 16:01 13:06 Urine Dipstick-Ancillary ordered. ps1 ca1 16:46 13:07 UA MICROSCOPIC+U.LAB.BRZ ordered. EDMS EDMS 17:19 17:17 patient BIBEMS after home health nurse reported hematuria. Patient states that ps1 she does not know what is going on and why she was brought here. She states that she is asymptomatic and was disturbed while eating lunch. She has a history of recurrent UTI and lymphedema with weeping wounds. She is on amoxicillin for her leg wounds. No fever, urgency, or dysuria. . ps1 17:35 17:12 06/07/2019 17:12 Discharged to Home. Impression: Acute cystitis with hematuria. ca1 Condition is Stable. Forms are Medication Reconciliation Form, Thank You Letter, Antibiotic Education, Prescription Opioid Use. Follow up: Dain Timmons; When: 48 Hours; Reason: Recheck today's complaints, Continuance of care, Re-evaluation by your physician. Follow up: Emergency Department; When: As needed; Reason: Fever > 102 F, Worsening of condition. Problem is new. Symptoms have improved. ps1
--- NOTE | 2019-06-07 17:14 | ER ---
Nurse's Notes [facility] Name: Julissa Courtney Age: 88 yrs Sex: Female : 1930 Arrival Date: 06/07/2019 Time: 12:43 Bed 17 Private MD: Diagnosis: Acute cystitis with hematuria Presentation: 06/07 12:43 Presenting complaint: EMS states: HH nurse reported hematuria since this morning. ca1 Samples brought in tubes collected at 1135 today. Pt has no complains of pain at this time. Reported frequent UTIs and currently on antibiotic treatment for UTI. No other history of bladder Ca or Kidney problems. Pt c/o coccyx pain and reports sitting on wheelchair all day. Transition of care: patient was received from another setting of care (long-term care facility), [facility]. Onset of symptoms was June 07, 2019. Risk Assessment: Do you want to hurt yourself or someone else? Patient reports no desire to harm self or others. Initial Sepsis Screen: Does the patient meet any 2 criteria? No. Patient's initial sepsis screen is negative. Does the patient have a suspected source of infection? No. Patient's initial sepsis screen is negative. Care prior to arrival: Urine collected and brought with pt. 12:43 Method Of Arrival: EMS: [facility] ca1 12:43 Acuity: MIKE 3 ca1 Historical: - Allergies: 13:01 Sulfa (Sulfonamide Antibiotics); ca1 13:01 tranqulizer (unknown); ca1 - Home Meds: 13:01 pantoprazole 40 mg oral TbEC 1 tab once daily [Active]; levothyroxine 88 mcg oral tab 1 ca1 tab once daily [Active]; spironolactone 25 mg Oral tab 1 tab once daily [Active]; amox-clav 500mg 1 tab daily [Active]; ondansetron HCl 4 mg Oral tab 1 tabs every 12 hours [Active]; acetaminophen-codeine 300-30 mg Oral tab 1 tab daily [Active]; Hayder-Plex Iron 85mg 1 tab daily [Active]; Viactiv Calcium + D 2 tab daily [Active]; - PMHx: 13:01 Arthritis; Dementia; Hypothyroidism; lymphedema; Thyroid problem; Ulcers; ca1 - PSHx: 13:01 Appendectomy; Tonsillectomy; ca1 - Immunization history:: Adult Immunizations up to date, Flu vaccine is not up to date. It has been more than one year since last vaccine. - Social history:: Smoking status: Patient/guardian denies using tobacco. - Ebola Screening: : Patient negative for fever greater than or equal to 101.5 degrees Fahrenheit, and additional compatible Ebola Virus Disease symptoms Patient denies exposure to infectious person Patient denies travel to an Ebola-affected area in the 21 days before illness onset No symptoms or risks identified at this time. Screenin:12 Abuse screen: Denies threats or abuse. Denies injuries from another. Nutritional ca1 screening: No deficits noted. Tuberculosis screening: No symptoms or risk factors identified. Fall Risk Fall in past 12 months (25 points). Secondary diagnosis (15 points) dementia, Ambulatory Aid- Crutches/Cane/Walker (15 pts). Gait- Weak (10 pts.). Total Siddiqui Fall Scale indicates High Risk Score (45 or more points). Fall prevention measures have been instituted. Side Rails Up X 2 Frequent Obs/Assessments Occuring Family Present and informed to notify staff if the need to leave the bedside As available patient and family educated on Fall Prevention Program and Strategies. Assessment: 13:05 Reassessment: Dr. Ruiz at bedside. ca1 13:12 General: Appears in no apparent distress. comfortable, Behavior is calm, cooperative, ca1 appropriate for age. Pain: Denies pain. Neuro: Level of Consciousness is awake, alert, obeys commands, Oriented to person, place, time, situation. Cardiovascular: Heart tones S1 S2 present Capillary refill < 3 seconds Patient's skin is warm and dry. Respiratory: Airway is patent Respiratory effort is even, unlabored, Respiratory pattern is regular, symmetrical, Breath sounds are clear bilaterally. GI: Abdomen is flat, non-distended, Bowel sounds present X 4 quads. Abd is soft and non tender X 4 quads. : Parent/caregiver report the patient having blood in urine since this morning. EENT: No signs and/or symptoms were reported regarding the EENT system. Derm: Skin is intact, is healthy with good turgor, Skin is pink, warm \\T\\ dry. Musculoskeletal: Circulation, motion, and sensation intact. Capillary refill < 3 seconds, Range of motion: intact in all extremities, Swelling present in right foot, left foot, right leg and left leg. 13:45 Reassessment: nurse and daughter at bedside. ca1 13:59 Reassessment: Pt refused straight cath at this time. ca1 14:29 Reassessment: Patient appears in no apparent distress at this time. No changes from tw2 previously documented assessment. Patient and/or family updated on plan of care and expected duration. Pain level reassessed. 15:15 Reassessment: Pt continued to refuse cath, saying "I am so dry, and I am exhausted." ca1 Talked to daughter re importance of urine collection through straight cath. Daughter requested meds to "knock her out a bit" for pt to cooperate. Notified provider. Benadryl ordered and given. 15:50 Reassessment: Straight cath inserted, bloody urine with minimal clots returned. ca1 [address] cath ordered. 16:32 Reassessment: Patient appears in no apparent distress at this time. Patient and/or ca1 family updated on plan of care and expected duration. Pain level reassessed. Patient is alert, oriented x 3, equal unlabored respirations, skin warm/dry/pink. Daughter and caregiver at bedside. 17:00 Reassessment: Patient appears in no apparent distress at this time. Patient is alert, ca1 oriented x 3, equal unlabored respirations, skin warm/dry/pink. Bladder irrigated until clear. Notified provider with orders to remove 3 way cath. 17:13 Reassessment: Cath removed. PT tolerated well. ca1 Vital Signs: 13:01 BP 128 / 67; Pulse 75; Resp 18 S; Temp 98.2(TE); Pulse Ox 100% on R/A; Weight 68.04 kg ca1 (R); Height 5 ft. 5 in. (165.10 cm) (R); Pain 0/10; 14:28 BP 99 / 67; Pulse 71; Resp 17; Pulse Ox 99% on R/A; tw2 15:03 BP 106 / 69; Pulse 66; Resp 18 S; Pulse Ox 99% on R/A; ca1 16:15 BP 126 / 76; Pulse 66; Resp 17 S; Pulse Ox 100% on R/A; ca1 17:00 BP 137 / 77; Pulse 66; Resp 17 S; Pulse Ox 100% on R/A; ca1 13:01 Body Mass Index 24.96 (68.04 kg, 165.10 cm) ca1 ED Course: 12:43 Patient arrived in ED. ca1 12:46 Esa Ruiz MD is Attending Physician. ps1 12:48 Triage completed. ca1 13:01 Arm band placed on right wrist. ca1 13:11 Mónica Church, BRADEN is Primary Nurse. ca1 13:12 Patient has correct armband on for positive identification. Bed in low position. Call ca1 light in reach. Side rails up X2. Pulse ox on. NIBP on. Warm blanket given. 13:58 No provider procedures requiring assistance completed. Initial lab(s) drawn, by me, ca1 sent to lab. Inserted saline lock: 22 gauge in right antecubital area, using aseptic technique. Blood collected. 15:50 Straight cath inserted, using sterile technique, 16 Fr. Specimen obtained. Returned ca1 bloody urine. Patient tolerated well. 16:00 3-way catheter inserted, using sterile technique, 20 Fr. Specimen obtained. Returned ca1 bloody urine. 16:[address] via stretcher. ca1 16:15 CT Abd/Pelvis - IV Contrast Only In Process Unspecified. EDMS 17:11 Dain Tmimons MD is Referral Physician. ps1 17:25 IV discontinued, intact, bleeding controlled, No redness/swelling at site. Pressure ca1 dressing applied. Administered Medications: 15:20 Drug: Benadryl 25 mg Route: IVP; Site: right antecubital; ca1 16:38 Follow up: Response: No adverse reaction ca1 Output: 17:10 Urine: 130ml (Yancey); Total: 130ml. ca1 Outcome: 17:12 Discharge ordered by MD. ps1 17:25 Discharged to Home w/ Home Health ca1 17:25 Condition: stable 17:25 Discharge instructions given to industrial machinery mechanic Azucena Instructed on discharge instructions, follow up and referral plans. medication usage, Demonstrated understanding of instructions, follow-up care, medications, Prescriptions given X 1. 17:35 Patient left the ED. ca1 Signatures: Dispatcher [employer] EDMS Genet Alejandro RN RN tw2 Esa Ruiz MD MD ps1 Mónica Church, BRADEN RN ca1 Corrections: (The following items were deleted from the chart) 15:27 13:12 Musculoskeletal: Circulation, motion, and sensation intact. Capillary refill < 3 ca1 seconds, Range of motion: intact in all extremities, ca1 16:33 16:32 Reassessment: Patient appears in no apparent distress at this time. Patient ca1 and/or family updated on plan of care and expected duration. Pain level reassessed. Patient is alert, oriented x 3, equal unlabored respirations, skin warm/dry/pink. ca1
[2019-06-07 17:46] VITALS: TEMP 98.2
[2019-06-07 17:49] VITALS: BP 126/76; O2SAT 100
== END 2019-06-07 17:35 | disposition home or self-care (01) ==
LOC: ER 12:40
DX: N30.01 Acute cystitis with hematuria (principal); E03.9 Hypothyroidism, unspecified; F03.90 Unspecified dementia, unspecified severity, without behavioral disturbance, psychotic disturbance, mood disturbance, and anxiety; E07.9 Disorder of thyroid, unspecified; Z88.2 Allergy status to sulfonamides; Z88.8 Allergy status to other drugs, medicaments and biological substances
CPT/HCPCS: 87088; 85025; 87086; 36415; 80053; 74177; 51702; 96374; 99285; Q9967; J1200; 81003; 81015; 87077; 87186

== ENCOUNTER 2019-06-13 09:25 | Day surgery (SDC) | payer OTHER, MEDICARE ==
--- NOTE | 2019-06-10 09:37 | RAD REPORT ---
EXAM DESCRIPTION: May Gibson And Kate (2 Views)06/10/2019 9:05 am CLINICAL HISTORY: Preop for like surgery COMPARISON: November 2018 FINDINGS: The lungs appear clear of acute infiltrate. The heart is mildly enlarged. Scoliosis involves the spine A moderate hiatal hernia is present. IMPRESSION: No acute abnormalities displayed
[2019-06-10 09:55] LABS: Absolute Lymphocytes (CBC) 1.1 K/uL (0.7-4.9); Basophils % 1.2 % (0-1.3); Hematocrit 32.1 % (36.0-45.0); Lymphocytes % 17.8 % (15.3-44.8); MPV 8.1 fL (7.6-11.3)
[2019-06-10 09:59] LABS: Potassium 3.7 mmol/L (3.5-5.1)
--- NOTE | 2019-06-10 11:57 | EKG ---
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
[2019-06-13] MEDS ORDERED: Ringers Lactate 1,000 ML IV ONE (09:42)
[2019-06-13] MEDS ORDERED: LIDOCAINE 2% MPF 5 ML VIAL ONE (10:20)
[2019-06-13] MEDS ORDERED: FENTANYL CITR 100 MCG/2 ML ONE (10:20)
[2019-06-13] MEDS ORDERED: PROPOFOL 200 MG/20 ML VIAL IV ONE ×2 (10:20→10:33)
[2019-06-13] MEDS ORDERED: CIPROFLOXACIN 400mg IV 400 MG/200 ML BAG IV ONE (10:23)
--- NOTE | 2019-06-13 11:24 | P.BOP ---
Preoperative diagnosis: necrotic left leg venous stasis ulcer, severe chronic lymphedema Postoperative diagnosis: same Primary procedure: Excisional debridement of necrotic left leg venous stasis ulcer Secondary procedure: 5.6 x 6.3 x 2.2 cm Estimated blood loss: <10cc Specimen: necrotic tissue Findings: necrotic left leg venous stasis ulcer Anesthesia: General Complications: None Transferred to: Recovery Room Condition: Good
[2019-06-13 15:04] VITALS: BP 147/72; TEMP 97; O2SAT 98
--- NOTE | 2019-06-13 21:46 | OP ---
Date of Procedure: 06/13/2019 Surgeon: Abram Rock MD Preoperative Diagnosis: Necrotic left leg venous stasis ulcer with severe chronic lymphedema. Postoperative Diagnosis: Necrotic left leg venous stasis ulcer with severe chronic lymphedema. Procedures: Excisional debridement of the chronic left leg venous stasis ulcer 5.6 x 6.3 x 2.2 cm. Specimens: Necrotic tissue and blood clot, fibrin. Anesthesia: Sedation plus local. History Of Present Illness: This is the case of an 88-year-old patient with chronic lymphedema, larg e severe lymphedema. She has a large ulcer on the back with fibrin present mixed with blood she aline eves from that area so easy. She does not recall any trauma in that region. She was seen by the [facility] and referred to surgery for cleaning of that area. We had se en the patient in the past few years ago for the same. We were able to heal that area, but obviously she is bedridden with severe lymphedema. She open that area easily and then it bleeds a lot and als o had a lot of fluid secretion, so we offered her debridement and cleaning of that area with benefits , alternatives, and risks including but not limited to infection, bleeding, damage to adjacent struct ures, bleeding IL, and even . She also understands this may not relieve any symptoms. She migh t need more than one surgical intervention. She understood, signed the consent. The daughter signed the consent. Description Of Procedure: Patient was brought to the operating room, placed in supine position. Ane sthesia was given without complication. Time-out was call. Leg was prepped and draped in a sterile fashion. We proceeded to do the debridement. After injecting local anesthetic, we used a curette, k nife, and pickup. All the necrotic tissue was removed. The area was irrigated until clean. Necroti c tissue was excised and then the area was packed with wet-to-dry dressing after assuring proper hemo stasis. The patient tolerated the procedure well. The patient was sent to the Recovery in [facility]. MARIA INES/SNOW Voice ID: [id number] Report ID: [id number]
--- NOTE | 2019-06-13 22:12 | DS ---
Date of Discharge: 06/13/2019 Diagnoses: Necrotic left leg venous stasis ulcers, severe chronic lymphedema. Procedure: Excisional debridement of necrotic left leg venous stasis ulcer. Disposition: Home. Activity: As tolerated. No heavy lifting. Followup: Followup at the wound healing center in 1 week. Call for appointment [phone]. Wet-to-dr y dressing daily. MARIA INES/SNOW Voice ID: [id number] Report ID: [id number]
== END 2019-06-13 13:20 | disposition home or self-care (01) ==
LOC: OR 09:25
PROVIDERS: ATTEND Surgery
PROC: 0JBP0ZZ Excision of Left Lower Leg Subcutaneous Tissue and Fascia, Open Approach (ICD-10-PCS; principal; 2019-06-13 10:45)
DX: L97.929 Non-pressure chronic ulcer of unspecified part of left lower leg with unspecified severity (principal); I89.0 Lymphedema, not elsewhere classified; E07.9 Disorder of thyroid, unspecified; M19.90 Unspecified osteoarthritis, unspecified site; F03.90 Unspecified dementia, unspecified severity, without behavioral disturbance, psychotic disturbance, mood disturbance, and anxiety; K21.9 Gastro-esophageal reflux disease without esophagitis
CPT/HCPCS: 93005; 85025; 80048; 36415; 88304; 71046; 11042; 11045; J2704 ×2; J3010; J7120; J0744; 88305

== ENCOUNTER 2019-12-09 08:41 | Emergency (ER) | payer OTHER, MEDICARE ==
--- NOTE | 2019-12-09 10:21 | RAD REPORT ---
EXAM DESCRIPTION: RAD - Shoulder Right 2 View - 12/09/2019 9:55 am CLINICAL HISTORY: Right shoulder pain FINDINGS: Mildly displaced fracture involves the mid right humerus with angulation present at fractu re site. Lucency at the fracture site raises the possibility that this is pathologic 9 millimeter lucency within the proximal diaphysis of the right humerus may represent metastasis
--- NOTE | 2019-12-09 10:21 | RAD REPORT ---
EXAM DESCRIPTION: RAD - Humerus Right - 12/09/2019 9:55 am CLINICAL HISTORY: Right arm pain status post fall FINDINGS: Mildly displaced fracture involves the mid right humerus with angulation present at fracture site. Briana cency at the fracture site raises the possibility that this is pathologic 9 millimeter lucency within the proximal diaphysis of the right humerus may represent metastasis
--- NOTE | 2019-12-09 10:22 | RAD REPORT ---
EXAM DESCRIPTION: RAD - Forearm Right - 12/09/2019 9:54 am CLINICAL HISTORY: Right arm pain status post fall FINDINGS: No fracture is seen. Osteoporosis
--- NOTE | 2019-12-09 10:22 | RAD REPORT ---
EXAM DESCRIPTION: RAD - Elbow Right 2 View - 12/09/2019 9:55 am CLINICAL HISTORY: Elbow pain FINDINGS: A limited two view series Osteoporosis No fracture or dislocation seen
--- NOTE | 2019-12-09 10:31 | RAD REPORT ---
EXAM DESCRIPTION: CT - Head Brain Wo Cont - 12/09/2019 10:24 am CLINICAL HISTORY: Head injury status post fall COMPARISON: 2017 TECHNIQUE: Computed axial tomography of the head was obtained. IV contrast was not requested. All CT scans are performed using dose optimization technique as appropriate and may include automated exposure control or mA/KV adjustment according to patient size. FINDINGS: An intracranial bleed is not seen . The ventricles are normal in caliber. No extra-axial fluid collection is noted. Mild cerebral atrophy Fluid within the sinuses/ mastoids is not seen. IMPRESSION: No acute intracranial abnormality is seen. If patient's symptoms persist MRI of the bra in would be recommended.
[2019-12-09 10:32] LABS: Absolute Lymphocytes (CBC) 0.7 K/uL (0.7-4.9); Basophils % 0.3 % (0-1.3); Lymphocytes % 5.9 % (15.3-44.8); MPV 6.9 fL (7.6-11.3); RBC Red Blood Cell Count 3.52 M/uL (3.86-4.86)
[2019-12-09 10:35] LABS: Protime INR 1.03
[2019-12-09] MEDS ORDERED: ONDANSETRON 4 MG/2 ML VIAL ONE (10:38)
[2019-12-09] MEDS ORDERED: MORPHINE 2 MG/ML SYR ONE ×2 (10:38→11:21)
[2019-12-09 10:57] LABS: ALT/SGPT 15 U/L (12-78); AST/SGOT 17 U/L (15-37); Albumin 3.1 g/dL (3.4-5.0); Alkaline Phosphatase 61 U/L (45-117); BUN Blood Urea Nitrogen 26 mg/dL (7-18); Bicarbonate 21 mmol/L (21-32); Bilirubin Direct 0.3 mg/dL (0-0.2); Bilirubin Total 1.3 mg/dL (0.2-1.0); Glucose Level 91 mg/dL (74-106); Magnesium 2.2 mg/dL (1.8-2.4); NT PRO-BNP 1011 pg/mL (<450); Potassium 3.8 mmol/L (3.5-5.1); Protein, Total 6.2 g/dL (6.4-8.2); Sodium Level 133 mmol/L (136-145); Troponin (Emerg Dept Use Only) < 0.02 ng/mL (0.0-0.045)
--- NOTE | 2019-12-09 12:05 | RAD REPORT ---
EXAM DESCRIPTION: May Single View12/09/2019 11:45 am CLINICAL HISTORY: Chest pain COMPARISON: 2018 FINDINGS: The lungs are hyperaerated The lungs appear clear of acute infiltrate. The heart is normal size IMPRESSION: No acute abnormalities displayed
--- NOTE | 2019-12-09 12:56 | EDPHYS ---
Physician Documentation [facility] Name: Julissa Courtney Age: 89 yrs Sex: Female : 1930 Arrival Date: 12/09/2019 Time: 08:42 Bed 8 Private MD: ED Physician Valentino Powell HPI: 12/08 09:35 This 89 yrs old Female presents to ER via Ambulatory with complaints of Right mh7 shoulder pain. 09:36 The patient or guardian complains of pain, that is chronic. The complaints affect the mh7 right bicep, dorsal aspect of right forearm and right elbow. Context: The problem was sustained at a [facility] or assisted living facility, resulted from unknown cause. Onset: The symptoms/episode began/occurred today. Treatment prior to arrival includes: over the counter medications, Tylenol. Modifying factors: the symptoms are aggravated by movement. Associated signs and symptoms: Pertinent positives: decreased range of motion, Pertinent negatives: deformity, erythema, fever, nausea, numbness, swelling, tingling, vomiting, warmth, weakness. Severity of symptoms: At their worst the symptoms were moderate, this morning, in the emergency department the symptoms have improved, moderately. The patient has experienced similar episodes in the past, chronically. According to assisted living facility, patient was sitting on her bed complaining of pain to her right shoulder and elbow this morning. They deny any falls or known injuries. Patient has had similar complaints multiple times in the past.. Historical: - Allergies: 08:42 Sulfa (Sulfonamide Antibiotics); aa5 08:42 Unknown tranquilizer; aa5 - Home Meds: 08:42 spironolactone 25 mg Oral tab 1 tab once daily [Active]; Viactiv Calcium + D 2 tab aa5 daily [Active]; Hayder-Plex Iron 85mg 1 tab daily [Active]; levothyroxine 88 mcg tab 1 tab once daily [Active]; acetaminophen-codeine 300-30 mg Oral tab 1 tab daily [Active]; Arthritis Pain Relief (acetam) 650 mg oral TbER [Active]; - PMHx: 08:42 Arthritis; Dementia; Hypothyroidism; Ulcers; lymphedema; aa5 - PSHx: 08:42 Appendectomy; Tonsillectomy; aa5 ROS: 09:36 Constitutional: Negative for fever, chills, and weight loss, Eyes: Negative for injury, mh7 pain, redness, and discharge, ENT: Negative for injury, pain, and discharge, Neck: Negative for injury, pain, and swelling, Cardiovascular: Negative for chest pain, palpitations, and edema, Respiratory: Negative for shortness of breath, cough, wheezing, and pleuritic chest pain, Abdomen/GI: Negative for abdominal pain, nausea, vomiting, diarrhea, and constipation, Back: Negative for injury and pain, : Negative for injury, bleeding, discharge, and swelling, Skin: Negative for injury, rash, and discoloration, Neuro: Negative for headache, weakness, numbness, tingling, and seizure, Psych: Negative for depression, anxiety, suicide ideation, homicidal ideation, and hallucinations, Allergy/Immunology: Negative for hives, rash, and allergies, Endocrine: Negative for neck swelling, polydipsia, polyuria, polyphagia, and marked weight changes, Hematologic/Lymphatic: Negative for swollen nodes, abnormal bleeding, and unusual bruising. Exam: 09:36 Constitutional: This is a well developed, well nourished patient who is awake, alert, mh7 and in no acute distress. Head/Face: Normocephalic, atraumatic. Eyes: Pupils equal round and reactive to light, extra-ocular motions intact. Lids and lashes normal. Conjunctiva and sclera are non-icteric and not injected. Cornea within normal limits. Periorbital areas with no swelling, redness, or edema. ENT: Nares patent. No nasal discharge, no septal abnormalities noted. Tympanic membranes are normal and external auditory canals are clear. Oropharynx with no redness, swelling, or masses, exudates, or evidence of obstruction, uvula midline. Mucous membranes moist. Neck: Trachea midline, no thyromegaly or masses palpated, and no cervical lymphadenopathy. Supple, full range of motion without nuchal rigidity, or vertebral point tenderness. No Meningismus. Chest/axilla: Normal chest wall appearance and motion. Nontender with no deformity. No lesions are appreciated. Cardiovascular: Regular rate and rhythm with a normal S1 and S2. No gallops, murmurs, or rubs. Normal PMI, no JVD. No pulse deficits. Respiratory: Lungs have equal breath sounds bilaterally, clear to auscultation and percussion. No rales, rhonchi or wheezes noted. No increased work of breathing, no retractions or nasal flaring. Abdomen/GI: Soft, non-tender, with normal bowel sounds. No distension or tympany. No guarding or rebound. No evidence of tenderness throughout. Back: No spinal tenderness. No costovertebral tenderness. Full range of motion. Skin: Warm, dry with normal turgor. Normal color with no rashes, no lesions, and no evidence of cellulitis. 09:36 Neuro: Awake and alert, GCS 15, oriented to person, place, time, and situation. Cranial nerves II-XII grossly intact. Motor strength 5/5 in all extremities. Sensory grossly intact. Cerebellar exam normal. Normal gait. Psych: Awake, alert, with orientation to person, place and time. Behavior, mood, and affect are within normal limits. 09:36 Musculoskeletal/extremity: Extremities: noted in the right elbow and dorsal aspect of right forearm and right bicep: pain, tenderness, ROM: limited active range of motion due to pain, in the right elbow and dorsal aspect of right forearm and right bicep, limited passive range of motion due to pain, in the right elbow and dorsal aspect of right forearm and right bicep, Pulses: are normal with no appreciated deficits, Perfusion: the patient is normally perfused throughout, Perfusion: the extremity is normally perfused throughout, Calf tenderness, is absent, Edema, is not appreciated, Sensation intact. Compartment Syndrome exam of affected extremity: is normal. no numbness, no tingling, no sensation deficit, no palor, no weak pulses, Joints: the right elbow and dorsal aspect of right forearm and right bicep displays painful range of motion. 10:17 ECG was reviewed by the Attending Physician. [facility] Vital Signs: 08:42 Pulse 74; Resp 18 S; Temp 98.0(TE); Pulse Ox 100% on R/A; aa5 09:10 BP 147 / 87; Pulse 89; em 10:09 BP 143 / 83; Pulse 102; Resp 18; Pulse Ox 99% on R/A; Pain 10/10; em 11:09 BP 131 / 77; Pulse 75; Resp 18; Pulse Ox 100% on R/A; em 12:08 Pulse 81; Resp 16; Pulse Ox 100% on R/A; Pain 3/10; em 13:33 BP 128 / 72; Pulse 74; Resp 18; Pulse Ox 99% on R/A; em 10:09 Terell (FACES) em Procedures: 12:46 Splinting: Splint applied to right upper extremity coaptation splint using Orthoglass mh7 splint, sling, applied by tech. Examined by me, post splint application: neurovascular intact, 2+ distal pulses palpable, brisk capillary refill noted, Patient tolerated well. MDM: 08:43 Patient medically screened. [facility] 12:46 Differential diagnosis: dislocation, open fracture, closed fracture, contusion, mh7 abrasion. Data reviewed: vital signs, nurses notes, EMS record, lab test result(s), EKG, radiologic studies, CT scan, plain films. 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 Interpretation: normal. Counseling: I had a detailed discussion with the patient and/or guardian regarding: the historical points, exam findings, and any diagnostic results supporting the discharge/admit diagnosis, lab results, radiology results, the need for outpatient follow up, to return to the emergency department if symptoms worsen or persist or if there are any questions or concerns that arise at home. Response to treatment: the patient's symptoms have markedly improved after treatment. Physician consultation: Bulmaro Chatman MD and will see patient in office. 12/09 07:16 ED course: Feels better, NAD, VSS, NVI, no focal neurological deficits. Coaptation mh7 splint placed to right upper extremity after discussion with Dr. Chatman. He wants patient to follow up with him for further care. Discussed all test results, findings, and recommendations with the patient and her daughter and answered all of their questions. She will follow up as recommended but may return to ED if worsening of symptoms or other concerns.. 12/08 10:00 Order name: Basic Metabolic Panel; Complete Time: 10:59 [facility] 12/08 10:00 Order name: CBC with Diff; Complete Time: 10:35 [facility] 12/08 10:46 Interpretation: MCV 85.3. [facility] 12/08 10:00 Order name: LFT's; Complete Time: 10:59 [facility] 12/08 10:00 Order name: Magnesium; Complete Time: 10:59 [facility] 12/08 10:00 Order name: NT PRO-BNP; Complete Time: 10:59 [facility] 12/08 10:00 Order name: PT-INR; Complete Time: 10:43 [facility] 12/08 10:53 Interpretation: Within normal limits. [facility] 12/08 08:47 Order name: Shoulder Right (2 View) XRAY; Complete Time: 10:35 [facility] 12/08 08:47 Order name: Humerus Right XRAY; Complete Time: 10:35 [facility] 12/08 08:47 Order name: Forearm Right XRAY; Complete Time: 10:35 [facility] 12/08 09:39 Order name: Elbow Right 2 View; Complete Time: 10:35 [facility] 12/08 10:00 Order name: Troponin (emerg Dept Use Only); Complete Time: 10:59 [facility] 12/08 10:00 Order name: XRAY Chest (1 view); Complete Time: 12:33 [facility] 12/08 10:00 Order name: CT Head Brain wo Cont; Complete Time: 10:35 [facility] 12/08 09:35 Order name: EKG - Nurse/Tech; Complete Time: 10:01 [facility] 12/08 10:00 Order name: EKG; Complete Time: 10:01 [facility] 12/08 10:00 Order name: Cardiac monitoring; Complete Time: 10:02 [facility] 12/08 10:00 Order name: IV Saline Lock; Complete Time: 10:01 [facility] 12/08 10:00 Order name: Labs collected and sent; Complete Time: 10:01 [facility] 12/08 10:00 Order name: O2 Per Protocol; Complete Time: 10:01 [facility] 12/08 10:00 Order name: O2 Sat Monitoring; Complete Time: 10:01 [facility] 12/08 11:04 Order name: Splint; Complete Time: 12:07 [facility] EC/22 10:17 Rate is 75 beats/min. Rhythm is regular. QRS [place] is Normal. ND interval is normal. QRS mh7 interval is normal. QT interval is normal. No Q waves. T waves are Normal. No ST changes noted. Clinical impression: Normal ECG. Administered Medications: 10:35 Drug: Zofran (Ondansetron) 4 mg Route: IVP; Site: left antecubital; em 11:06 Follow up: Response: No adverse reaction em 10:37 Drug: morphine 2 mg Route: IVP; Site: left antecubital; em 11:05 Follow up: Response: No adverse reaction; Pain is unchanged, physician notified; RASS: em Alert and Calm (0) 11:50 Drug: morphine 2 mg Route: IVP; Site: left antecubital; em 12:30 Follow up: Response: No adverse reaction; Marked relief of symptoms; Pain is decreased em Disposition: 12/09/19 12:54 Discharged to Assisted. Impression: Displaced transverse fracture of shaft of humerus, right arm. - Condition is Stable. - Discharge Instructions: Humerus Fracture Treated With Immobilization, Sjau-bn-Saoh. - Prescriptions for Tylenol- Codeine #4 300-60 mg Oral Tablet - take 1 tablet by ORAL route every 6 hours As needed; 20 tablet. - Medication Reconciliation Form, Thank You Letter, Antibiotic Education, Prescription Opioid Use form. - Follow up: Private Physician; When: 1 - 2 days; Reason: Worsening of condition, Re-evaluation by your physician. Follow up: Bulmaro Chatman MD; When: 1 - 2 days; Reason: Worsening of condition, Re-evaluation by your physician. - Problem is new. - Symptoms have improved. Signatures: Dispatcher [employer] [facility] Brian Beltran RN RN Naye Talamantes RN RN aa5 Valentino Powell MD MD 7 Corrections: (The following items were deleted from the chart) 09:38 08:48 Elbow Right 3 View+RAD.RAD.BRZ ordered. [facility] 09:40 08:52 This 89 yrs old Female presents to ER via Ambulatory with complaints of mh7 Fall Injury, Arm Pain. [facility] 09:40 08:52 This 89 yrs old Female presents to ER via Ambulatory with complaints of mh7 Fall Injury, Arm Pain. 7 13:44 12:54 12/09/2019 12:54 Discharged to Assisted. Impression: Displaced transverse em fracture of shaft of humerus, right arm. Condition is Stable. Forms are Medication Reconciliation Form, Thank You Letter, Antibiotic Education, Prescription Opioid Use. Follow up: Private Physician; When: 1 - 2 days; Reason: Worsening of condition, Re-evaluation by your physician. Follow up: Dr. Bulmaro Chatman; When: 1 - 2 days; Reason: Worsening of condition, Re-evaluation by your physician. Problem is new. Symptoms have improved. mh7
--- NOTE | 2019-12-09 12:56 | ER ---
Nurse's Notes [facility] Name: Julissa Courtney Age: 89 yrs Sex: Female : 1930 Arrival Date: 12/09/2019 Time: 08:42 Bed 8 Private MD: Diagnosis: Displaced transverse fracture of shaft of humerus, right arm Presentation: 12/08 08:42 Chief complaint: EMS states: [facility] [address] [facility]. Pt c/o pain to right shoulder and right elbow. 08:42 Coronavirus screen: Proceed with normal triage. Patient denies a cough. Patient denies aa5 shortness of breath or difficulty breathing. Patient denies measured and/or subjective temperature greater than 100.4F prior to today's visit. Patient denies travel on a cruise ship or to a country the [facility] currently lists as an affected area. Patient denies contact with known and/or suspected case of COVID-19. Ebola Screen: Patient negative for fever greater than or equal to 101.5 degrees Fahrenheit, and additional compatible Ebola Virus Disease symptoms. Initial Sepsis Screen: Does the patient meet any 2 criteria? No. Patient's initial sepsis screen is negative. Does the patient have a suspected source of infection? No. Patient's initial sepsis screen is negative. Risk Assessment: Do you want to hurt yourself or someone else? Patient reports no desire to harm self or others. Onset of symptoms was December 09, 2019. 08:42 Method Of Arrival: Ambulatory aa5 08:42 Acuity: MIKE 3 aa5 Historical: - Allergies: 08:42 Sulfa (Sulfonamide Antibiotics); aa5 08:42 Unknown tranquilizer; aa5 - Home Meds: 08:42 spironolactone 25 mg Oral tab 1 tab once daily [Active]; Viactiv Calcium + D 2 tab aa5 daily [Active]; Hayder-Plex Iron 85mg 1 tab daily [Active]; levothyroxine 88 mcg tab 1 tab once daily [Active]; acetaminophen-codeine 300-30 mg Oral tab 1 tab daily [Active]; Arthritis Pain Relief (acetam) 650 mg oral TbER [Active]; - PMHx: 08:42 Arthritis; Dementia; Hypothyroidism; Ulcers; lymphedema; aa5 - PSHx: 08:42 Appendectomy; Tonsillectomy; aa5 Screenin:10 Abuse screen: no apparent signs noted. Nutritional screening: No deficits noted. em Tuberculosis screening: No symptoms or risk factors identified. Fall Risk Secondary diagnosis (15 points) dementia, impaired mobility, IV access (20 points). Ambulatory Aid- Crutches/Cane/Walker (15 pts). Mental Status- Overestimates/Forgets Limitations (15 pts.). Total Siddiqui Fall Scale indicates High Risk Score (45 or more points). Side Rails Up X 2 1:1 Attendant Assigned Family Present and informed to notify staff if the need to leave the bedside. Assessment: 09:10 General: Appears uncomfortable, slender, Behavior is. Pain: Complains of pain in right em bicep Noted to be crying, moaning, Unable to use pain scale. Does not appear to understand pain scale. reports pain in right arm. Neuro: Level of Consciousness is awake, Oriented to none. Cardiovascular: Capillary refill < 3 seconds. Respiratory: Airway is patent Respiratory effort is even, unlabored, Respiratory pattern is regular, symmetrical. Derm: Skin is fragile, is thin, Skin is normal. Musculoskeletal: Range of motion: limited in right shoulder and right elbow. 09:15 Reassessment: called correction to get more information about pts fall, correction em staff reports pt was found sitting up on bed complaining of right arm/shoulder pain, staff did not witness a fall, correction staff reports that they notified the daughter and she stated that she was had shoulder dislocations in the past, Dr. Powell notified of pt previous history. 09:51 Reassessment: daughter at bedside reports pt was up all night walking with her walker em but did not witness a fall from the video they have in the pts room. 10:21 Reassessment: wheeled to CT via stretcher. em 11:04 Reassessment: pt moaning and crying in pain, Dr. Powell notified of pt pain prior to em putting the splint, received new orders for 2 mg morphine IVP x 1. 12:10 Reassessment: Patient appears in no apparent distress at this time. Patient states em feeling better. 13:33 Reassessment: Patient appears in no apparent distress at this time. report given to em EMS. Vital Signs: 08:42 Pulse 74; Resp 18 S; Temp 98.0(TE); Pulse Ox 100% on R/A; aa5 09:10 BP 147 / 87; Pulse 89; em 10:09 BP 143 / 83; Pulse 102; Resp 18; Pulse Ox 99% on R/A; Pain 10/10; em 11:09 BP 131 / 77; Pulse 75; Resp 18; Pulse Ox 100% on R/A; em 12:08 Pulse 81; Resp 16; Pulse Ox 100% on R/A; Pain 3/10; em 13:33 BP 128 / 72; Pulse 74; Resp 18; Pulse Ox 99% on R/A; em 10:09 Terell (FACES) em ED Course: 08:42 Patient arrived in ED. aa5 08:42 Valentino Powell MD is Attending Physician. 7 08:42 Arm band placed on Patient placed in an exam room, on a stretcher. aa5 08:50 Triage completed. aa5 09:10 Patient has correct armband on for positive identification. Bed in low position. Call em light in reach. Adult w/ patient. Pulse ox on. NIBP on. 09:10 Patient maintains SpO2 saturation greater than 95% on room air. Thermoregulation: warm em blanket given to patient. 09:33 Brian Beltran, RN is Primary Nurse. em 09:41 Shoulder Right (2 View) XRAY In Process Unspecified. EDMS 09:41 Humerus Right XRAY In Process Unspecified. EDMS 09:41 Forearm Right XRAY In Process Unspecified. EDMS 09:41 Elbow Right 2 View In Process Unspecified. EDMS 10:24 CT Head Brain wo Cont In Process Unspecified. EDMS 11:46 XRAY Chest (1 view) In Process Unspecified. EDMS 12:49 Bulmaro Chatman MD is Referral Physician. 7 13:39 No provider procedures requiring assistance completed. IV discontinued, intact, em bleeding controlled, No redness/swelling at site. Pressure dressing applied. Administered Medications: 10:35 Drug: Zofran (Ondansetron) 4 mg Route: IVP; Site: left antecubital; em 11:06 Follow up: Response: No adverse reaction em 10:37 Drug: morphine 2 mg Route: IVP; Site: left antecubital; em 11:05 Follow up: Response: No adverse reaction; Pain is unchanged, physician notified; RASS: em Alert and Calm (0) 11:50 Drug: morphine 2 mg Route: IVP; Site: left antecubital; em 12:30 Follow up: Response: No adverse reaction; Marked relief of symptoms; Pain is decreased em Outcome: 12:54 Discharge ordered by MD. rutledge 13:42 Discharged to correction. Report called to [facility] Transfer form completed. em 13:42 Condition: stable 13:42 Discharge instructions given to family, correction, Instructed on discharge instructions, follow up and referral plans. medication usage, Demonstrated understanding of instructions, follow-up care, medications, splint care, Prescriptions given X 1. 13:44 Patient left the ED. em Signatures: Dispatcher [employer] Brian Zapien RN RN Naye Dent RN RN aa5 Valentino Powell MD MD mh7
[2019-12-09 13:49] VITALS: TEMP 98
[2019-12-09 13:56] VITALS: BP 128/72; O2SAT 99
--- NOTE | 2019-12-09 15:35 | EKG ---
Test Date: 2019-12-09 Test Time: 10:00:11 Rn Clinician: DANIEL MEASUREMENT RESULTS: Intervals: Rate: 75 CA: 176 QRSD: 74 QT: 414 QTc: 462 [place]: P: 77 CA: 176 QRS: 79 T: 75 INTERPRETIVE STATEMENTS: Normal sinus rhythm Normal ECG Compared to ECG 06/10/2019 08:38:32 Myocardial infarct finding no longer present Electronically Signed On 12-09-19 15:35:23 CDT by Nathan Monique
== END 2019-12-09 13:44 ==
LOC: ER 08:41
PROC: 2W38X1Z Immobilization of Right Upper Extremity using Splint (ICD-10-PCS; principal; 2019-12-09)
DX: S42.321A Displaced transverse fracture of shaft of humerus, right arm, initial encounter for closed fracture (principal); X58.XXXA Exposure to other specified factors, initial encounter; Y93.9 Activity, unspecified; Y92.129 Unspecified place in nursing home as the place of occurrence of the external cause; Z88.2 Allergy status to sulfonamides; Z88.8 Allergy status to other drugs, medicaments and biological substances; E03.9 Hypothyroidism, unspecified; F03.90 Unspecified dementia, unspecified severity, without behavioral disturbance, psychotic disturbance, mood disturbance, and anxiety
CPT/HCPCS: 93005; 85025; 80048; 36415; 83735; 85610; 80076; 84484; 83880; 70450; 71045; 73070; 73090; 73060; 73030; 96375; 96374; 99284; 29105; J2270 ×2; J2405

== ENCOUNTER 2019-12-11 21:42 | Emergency (ER) | payer OTHER, MEDICARE ==
[2019-12-11] MEDS ORDERED: MUPIROCIN 2% OINT 22GM TUBE TOP ONE (22:40)
[2019-12-11] MEDS ORDERED: HYDROCODONE/APAP 5/325 MG TAB ONE (23:26)
--- NOTE | 2019-12-12 02:19 | ER ---
Nurse's Notes [facility] Name: Julissa Courtney Age: 89 yrs Sex: Female : 1930 Arrival Date: 12/11/2019 Time: 21:45 Bed 7 Private MD: Diagnosis: Humerus Fracture;Knee Pain Presentation: 12/10 21:55 Chief complaint: EMS states: "the nursing facility reported that the pt managed to j undue her Orthoglass splint. she was recently seen here for a broken arm and was splinted and discharged to fallow up with orthopedics. we started a 20 G to the left hand and gave 25 mcg of fentanyl to help with pain.". Coronavirus screen: Proceed with normal triage. Ebola Screen: Patient negative for fever greater than or equal to 101.5 degrees Fahrenheit, and additional compatible Ebola Virus Disease symptoms. Initial Sepsis Screen: Does the patient meet any 2 criteria? No. Patient's initial sepsis screen is negative. Does the patient have a suspected source of infection? No. Patient's initial sepsis screen is negative. Risk Assessment: Do you want to hurt yourself or someone else? Patient reports no desire to harm self or others. Onset of symptoms was December 11, 2019. 21:55 Method Of Arrival: EMS: [facility] jd3 21:55 Acuity: MIKE 3 jd3 22:03 Care prior to arrival: Medication(s) given: Fentanyl 25 mcg IV initiated. 20 GA, in the jd3 left hand. Historical: - Allergies: 22:00 Sulfa (Sulfonamide Antibiotics); jd3 22:00 tranqulizer (unknown); jd3 22:00 Unknown tranquilizer; jd3 - Home Meds: 22:00 amox-clav 500mg 1 tab daily [Active]; acetaminophen-codeine 300-30 mg Oral tab 1 tab jd3 daily [Active]; Arthritis Pain Relief (acetam) 650 mg Oral TbER [Active]; B-12 DOTS Oral [Active]; Fosamax 70 mg Oral tab 1 tab once wkly [Active]; Iron CR Oral [Active]; levothyroxine 88 mcg tab 1 tab once daily [Active]; ondansetron HCl 4 mg Oral tab 1 tabs every 12 hours [Active]; [place] Iron 85mg 1 tab daily [Active]; pantoprazole 40 mg Oral TbEC 1 tab once daily [Active]; aspirin 81 mg Oral TbEC [Active]; spironolactone 25 mg Oral tab 1 tab once daily [Active]; Viactiv Calcium + D 2 tab daily [Active]; Potassium Chloride Oral [Active]; Vitamin D3 Oral [Active]; - PMHx: 22:00 Arthritis; Dementia; Hypothyroidism; lymphedema; Thyroid problem; Ulcers; jd3 - PSHx: 22:00 Appendectomy; Tonsillectomy; jd3 - Immunization history:: Adult Immunizations up to date. - Social history:: Smoking status: Patient denies any tobacco usage or history of. Screenin:03 Abuse screen: Denies threats or abuse. Nutritional screening: No deficits noted. jd3 Tuberculosis screening: No symptoms or risk factors identified. Fall Risk Ambulatory Aid- None/Bed Rest/Nurse Assist (0 pts). Gait- Normal/Bed Rest/Wheelchair (0 pts) Mental Status- Oriented to own ability (0 pts). Total Siddiqui Fall Scale indicates No Risk (0-24 pts). Assessment: 22:01 General: Appears uncomfortable, Behavior is cooperative, restless. Pain: Complains of jd3 pain in right arm Quality of pain is described as sharp, tender. Neuro: Level of Consciousness is awake, alert, obeys commands, confused, Oriented to person. Cardiovascular: Denies chest pain, Capillary refill < 3 seconds Patient's skin is warm and dry. Respiratory: Airway is patent Respiratory effort is even, unlabored, Respiratory pattern is regular, symmetrical, Denies cough, shortness of breath. GI: No signs and/or symptoms were reported involving the gastrointestinal system. : No signs and/or symptoms were reported regarding the genitourinary system. EENT: No signs and/or symptoms were reported regarding the EENT system. Derm: Skin is intact, Skin is dry, Skin is normal, Skin temperature is warm Bruising that is dark purple, on right forearm. 22:02 Derm: Bruising that is green, yellow, on right shoulder. Musculoskeletal: Circulation, jd3 motion, and sensation intact. Range of motion: limited in right arm. 23:00 Reassessment: Patient appears in no apparent distress at this time. No changes from jd3 previously documented assessment. Patient and/or family updated on plan of care and expected duration. Pain level reassessed. 12/11 00:00 Reassessment: Patient appears in no apparent distress at this time. No changes from jd3 previously documented assessment. Patient and/or family updated on plan of care and expected duration. Pain level reassessed. 01:00 Reassessment: Patient appears in no apparent distress at this time. No changes from jd3 previously documented assessment. Patient and/or family updated on plan of care and expected duration. Pain level reassessed. 02:00 Reassessment: Patient appears in no apparent distress at this time. No changes from jd3 previously documented assessment. Patient and/or family updated on plan of care and expected duration. Pain level reassessed. Neuro: Level of Consciousness is awake, alert, obeys commands, confused, Oriented to person. Cardiovascular: No deficits noted. Respiratory: No deficits noted. Musculoskeletal: splint is applied to right arm. pt reporting a less pain sensation. 03:30 Reassessment: report attempted to [facility], no answer. j 03:44 Reassessment: report attempt to [facility], was told to call back in 5 min. jd3 03:50 Reassessment: talked with Jenise from [facility] and was told that they will work on [employer] figuring out a transport home. 03:50 Reassessment: Patient appears in no apparent distress at this time. No changes from jd3 previously documented assessment. Patient and/or family updated on plan of care and expected duration. Pain level reassessed. 04:58 Reassessment: No changes from previously documented assessment. Patient and/or family [facility] updated on plan of care and expected duration. Pain level reassessed. [facility] to transfer pt back to [facility] Patient states feeling better. 05:36 Reassessment: report given to [facility]. jd3 Vital Signs: 12/10 21:45 BP 112 / 59; Pulse 79; Resp 19; Temp 97.8; Pulse Ox 100% ; rr5 22:00 Weight 54.43 kg (R); Height 5 ft. 3 in. (160.02 cm) (R); Pain 7/10; jd3 12/11 01:46 BP 104 / 66 LA Sitting (auto/reg); Pulse 88 MON; Resp 24 S; Pulse Ox 100% on R/A; ds4 04:26 BP 108 / 69; Pulse 73; Resp 17 S; Pulse Ox 99% ; jd3 12/10 22:00 Body Mass Index 21.26 (54.43 kg, 160.02 cm) j ED Course: 12/10 21:45 Patient arrived in ED. cf2 21:51 Paul Chandler DO is Attending Physician. ms3 21:55 Jarett Montanez RN is Primary Nurse. jd3 21:58 Triage completed. jd3 22:00 Arm band placed on. jd3 22:03 Patient has correct armband on for positive identification. Bed in low position. Call j light in reach. Side rails up X 1. Adult w/ patient. Pulse ox on. NIBP on. 22:04 Maintain EMS IV. Dressing intact. Good blood return noted. Site clean \\T\\ dry. Gauge \\T\\ ashanti 3 site: 20 G left hand. 22:40 Aleksandr Machado PA is PHCP. [facility] 23:35 Orthoglass splint: Coaptation splint applied on right arm. Shoulder immobilizer applied ds4 on right shoulder. 23:51 Knee Left 3 View XRAY In Process Unspecified. EDMS 12/11 02:17 Bulmaro Chatman MD is Referral Physician. [facility] 05:37 No provider procedures requiring assistance completed. IV discontinued, intact, jd3 bleeding controlled, No redness/swelling at site. Pressure dressing applied. Administered Medications: 00:01 Drug: [place] 5 mg-325 mg 1 tabs {Note: rass 0.} Route: PO; rr5 01:00 Follow up: Response: No adverse reaction j Outcome: 02:18 Discharge ordered by . [facility] 05:37 Discharged to group home. Report called to Haroon Merrill Transfer form completed. j 05:37 Condition: stable 05:37 Instructed on discharge instructions. 05:37 Patient left the ED. j Signatures: Dispatcher [employer] EDWI Aleksandr Machado PA PA [facility] Gurjit Vargas ds4 Jarett Montanez RN RN j Han Krishnan RN RN rr5 Rolando Anand cf2 Paul Chandler DO DO ms3 Corrections: (The following items were deleted from the chart) 04:59 04:58 BP 108 / 54; Pulse 73bpm; Resp 17bpm; Spontaneous; Pulse Ox 97% RA; jd3 jd3
--- NOTE | 2019-12-12 02:20 | EDPHYS ---
Physician Documentation [facility] Name: Julissa Courtney Age: 89 yrs Sex: Female : 1930 Arrival Date: 12/11/2019 Time: 21:45 Bed 7 Private MD: ED Physician Paul Chandler HPI: 12/11 00:00 This 89 yrs old Female presents to ER via EMS with complaints of Shoulder jmm Pain. 00:00 The patient or guardian complains of an injury. Onset: The symptoms/episode jmm began/occurred acutely, 3 day(s) ago. This is an 89 year old female with a history of dementia that presents to the ED after taking off her splint. Daughter concerned she will take the splint off again at home. . Historical: - Allergies: 12/10 22:00 Sulfa (Sulfonamide Antibiotics); jd3 22:00 tranqulizer (unknown); jd3 22:00 Unknown tranquilizer; jd3 - Home Meds: 22:00 amox-clav 500mg 1 tab daily [Active]; acetaminophen-codeine 300-30 mg Oral tab 1 tab jd3 daily [Active]; Arthritis Pain Relief (acetam) 650 mg Oral TbER [Active]; B-12 DOTS Oral [Active]; Fosamax 70 mg Oral tab 1 tab once wkly [Active]; Iron CR Oral [Active]; levothyroxine 88 mcg tab 1 tab once daily [Active]; ondansetron HCl 4 mg Oral tab 1 tabs every 12 hours [Active]; [place] Iron 85mg 1 tab daily [Active]; pantoprazole 40 mg Oral TbEC 1 tab once daily [Active]; aspirin 81 mg Oral TbEC [Active]; spironolactone 25 mg Oral tab 1 tab once daily [Active]; Viactiv Calcium + D 2 tab daily [Active]; Potassium Chloride Oral [Active]; Vitamin D3 Oral [Active]; - PMHx: 22:00 Arthritis; Dementia; Hypothyroidism; lymphedema; Thyroid problem; Ulcers; jd3 - PSHx: 22:00 Appendectomy; Tonsillectomy; jd3 - Immunization history:: Adult Immunizations up to date. - Social history:: Smoking status: Patient denies any tobacco usage or history of. ROS: 12/11 00:00 Constitutional: Negative for fever, chills, and weight loss, Cardiovascular: Negative [facility] for chest pain, palpitations, and edema, Respiratory: Negative for shortness of breath, cough, wheezing, and pleuritic chest pain. MS/extremity: Positive for pain. All other systems are negative. Exam: 00:00 Constitutional: This is a well developed, well nourished patient who is awake, alert, jmm and in no acute distress. Head/Face: atraumatic. Eyes: EOMI, no conjunctival erythema appreciated ENT: Moist Mucus Membranes Neck: Trachea midline, Supple Chest/axilla: Normal chest wall appearance and motion. Cardiovascular: Regular rate and rhythm. No edema appreciated Respiratory: Normal respirations, no respiratory distress appreciated Abdomen/GI: Non distended, soft Back: Normal ROM 00:00 Musculoskeletal/extremity: compartments soft at the right upper extremity, full radial pulse, NVI. 00:00 Musculoskeletal/extremity: painful rom noted to the left knee. 00:00 Skin: ecchymosis noted to the right forearm. 00:00 Neuro: 00:00 Psych: Behavior/mood is pleasant. Vital Signs: 12/10 21:45 BP 112 / 59; Pulse 79; Resp 19; Temp 97.8; Pulse Ox 100% ; rr5 22:00 Weight 54.43 kg (R); Height 5 ft. 3 in. (160.02 cm) (R); Pain 7/10; jd3 12/11 01:46 BP 104 / 66 LA Sitting (auto/reg); Pulse 88 MON; Resp 24 S; Pulse Ox 100% on R/A; ds4 04:26 BP 108 / 69; Pulse 73; Resp 17 S; Pulse Ox 99% ; jd3 12/10 22:00 Body Mass Index 21.26 (54.43 kg, 160.02 cm) jd3 MDM: 12/10 22:47 Patient medically screened. [facility] 12/11 02:16 Data reviewed: vital signs, nurses notes. Counseling: I had a detailed discussion with palak the patient and/or guardian regarding: the historical points, exam findings, and any diagnostic results supporting the discharge/admit diagnosis, radiology results, the need for outpatient follow up, to return to the emergency department if symptoms worsen or persist or if there are any questions or concerns that arise at home. ED course: Patient replinted with coaptation splint. Knee x ray does not appear to show dislocation or fracture. Family advised to follow up with ortho and otherwise given strict return precautions. . 12/10 23:15 Order name: Knee Left [address] View [address] [facility] 12/10 22:50 Order name: Misc. Order: coaptation splint; Complete Time: 23:[address] [facility] Administered Medications: 00:01 Drug: [place] 5 mg-325 mg 1 tabs {Note: rass 0.} Route: PO; rr5 01:00 Follow up: Response: No adverse reaction jd3 Disposition: 02:25 Co-signature as Attending Physician, Paul Chandler DO. I agree with the assessment and ms3 plan of care. Disposition: 12/12/19 02:18 Discharged to Home. Impression: Humerus Fracture, Knee Pain. - Condition is Stable. - Discharge Instructions: Knee Pain, Humerus Fracture Treated With Immobilization, [id number]. - Medication Reconciliation Form, Thank You Letter, Antibiotic Education, Prescription Opioid Use form. - Follow up: Bulmaro Chatman MD; When: 2 - 3 days; Reason: Recheck today's complaints, Continuance of care, Re-evaluation by your physician. Signatures: Dispatcher [employer] EDMS Aleksandr Machado PA PA jmm Davies, Jonathon, RN RN jd3 Han Krishnan RN RN rr5 Paul Chandler DO DO ms3 Corrections: (The following items were deleted from the chart) 02:26 02:18 Co-signature as Attending Physician, Paul Chandler DO ms3 ms3 05:37 02:18 12/12/2019 02:18 Discharged to Home. Impression: Humerus Fracture; Knee Pain. jd3 Condition is Stable. Forms are Medication Reconciliation Form, Thank You Letter, Antibiotic Education, Prescription Opioid Use. Follow up: Dr. Bulmaro Chatman; When: 2 - 3 days; Reason: Recheck today's complaints, Continuance of care, Re-evaluation by your physician. [facility]
[2019-12-12 05:42] VITALS: TEMP 97.8
[2019-12-12 05:46] VITALS: BP 108/69; O2SAT 99
--- NOTE | 2019-12-12 09:15 | RAD REPORT ---
EXAM DESCRIPTION: RAD - Knee Left 3 View - 12/11/2019 11:50 pm CLINICAL HISTORY: Left knee pain FINDINGS: Severe osteoarthritis involves the lateral compartment consisting of bone on bone with ost eophytes and subchondral sclerosis Moderate to marked osteoarthritis involves medial compartment Lateral subluxation of the tibia on the femur. No fracture is seen. Osteoporosis
== END 2019-12-12 05:37 | disposition home or self-care (01) ==
LOC: ER 21:42
DX: S42.301G Unspecified fracture of shaft of humerus, right arm, subsequent encounter for fracture with delayed healing (principal); M25.562 Pain in left knee; E03.9 Hypothyroidism, unspecified; F03.90 Unspecified dementia, unspecified severity, without behavioral disturbance, psychotic disturbance, mood disturbance, and anxiety; Z88.2 Allergy status to sulfonamides; Z88.5 Allergy status to narcotic agent; Z79.82 Long term (current) use of aspirin
CPT/HCPCS: 99284